=== PATIENT | male | born 1965 | race Caucasian/White ===

== ENCOUNTER 2016-04-16 08:45 | Emergency (ER) | payer OTHER ==
[~2016-04-16] VITALS: Ht 190.5 cm; Wt 83.9 kg
[~2016-04-16 08:45] MED LIST: LORA0.5T34 PO
[2016-04-16] MEDS ORDERED: NS IV 1000 ML 1,000 ML IV ONE (08:51)
[2016-04-16] MEDS ORDERED: HYDROmorphone (DILAUDID) 2 MG/ML VIAL IVP STA ×2 (08:51→09:29)
[2016-04-16] MEDS ORDERED: ceFAZolin 2 GM IV (SDC ONLY) 50 ML IV ONE (09:00)
[2016-04-16] MEDS ORDERED: TETANUS,DIPTH,PERTUSS P/F (BOOSTRIX) 0.5 ML VIAL IM ONE (09:00)
[2016-04-16 09:08] LABS: MEAN PLATELET VOLUME 10.4 FL (7.4-10.4); RED BLOOD COUNT 4.83 10^6/uL (4.35-5.85); WHITE BLOOD COUNT 7.9 10^3/uL (4.3-11.0)
--- NOTE | 2016-04-16 09:23 | Diagnostic Imaging Report ---
INDICATION: Crush injury Portable upright view of the chest is obtained. Comparison is made to study of 08/10/2013. FINDINGS: Heart size and pulmonary vascularity are within normal limits, and the lungs are clear, bilaterally. IMPRESSION: Unremarkable chest. Dictated by: Dictated on workstation # [id number]
--- NOTE | 2016-04-16 09:25 | Diagnostic Imaging Report ---
INDICATION: Crush injury to left upper extremity. AP and lateral views of the left forearm are obtained. FINDINGS: No acute fracture or dislocation is identified. No abnormal lytic or sclerotic focus is seen, and there is no radiopaque foreign body. IMPRESSION: No acute abnormality. Dictated by: Dictated on workstation # [id number]
--- NOTE | 2016-04-16 09:26 | Diagnostic Imaging Report ---
Indication: Crush injury to the left hand during work this morning. Discussion: Three views of the left hand were obtained, no comparison. Comminuted acute fracture of the mid aspect of the left second proximal phalanx. Fracture appears compound as the proximal bone shaft does appear to protrude through the skin surface. The distal finger is displaced along the radial aspect and foreshortened approximately 1.5 cm. No radiopaque foreign body identified. Soft tissue swelling is noted. The joint spaces are well-maintained. Impression: 1. Comminuted compound displaced foreshortened fracture of the proximal left second phalanx. Dictated by: Dictated on workstation # [id number]
[2016-04-16 09:29] LABS: ALANINE AMINOTRANSFERASE 173 U/L (0-55); ALBUMIN 4.1 G/DL (3.2-4.5); ALCOHOL 186 MG/DL (<10); ANION GAP 12 MMOL/L (5-14); ASPARTATE AMINO TRANSFERASE 214 U/L (5-34); BILIRUBIN,DIRECT 0.2 MG/DL (0.0-0.3); BILIRUBIN,INDIRECT 0.3 MG/DL; BILIRUBIN,TOTAL 0.5 MG/DL (0.1-1.0); BLOOD UREA NITROGEN 8 MG/DL (7-18); BUN/CREATININE RATIO 11; CALCIUM 9.6 MG/DL (8.5-10.1); CARBON DIOXIDE 19 MMOL/L (21-32); CHLORIDE 105 MMOL/L (98-107); CREATININE SERUM 0.76 MG/DL (0.60-1.30); GFR ESTIMATED > 60; GLUCOSE 129 MG/DL (70-105); POTASSIUM 4.1 MMOL/L (3.6-5.0); SODIUM 136 MMOL/L (135-145); TOTAL PROTEIN 8.1 G/DL (6.4-8.2)
--- NOTE | 2016-04-16 09:47 | ED Trauma-Multisystem ---
General Stated Complaint: L HAND INJ Source of Information: Patient, Family Exam Limitations: No Limitations History of Present Illness Time Seen by Provider: 08:48 Initial Comments This 51-year-old gentleman presents to the emergency room with a severe left hand injury. His hand was caught up in crushed in a printing press. He has a displaced open fracture of the left second finger and extensive soft tissue injury. Family reports patient is a heavy daily drinker. Patient admits to drinking last night and only had 4 hours of sleep. He denies any other injury. He is alert and oriented. Wounds are not bleeding at this time. Allergies and Home Medications Allergies Coded Allergies: No Known Drug Allergies (Unverified , 08/10/13) Home Medications Cephalexin 500 Mg Capsule #40 500 MG PO QID Prescribed by: MITCH SCHMITZ on 04/16/16 1234 Oxycodone HCl/Acetaminophen 1 Each Tablet #60 1-2 EACH PO Q4H PRN PRN PAIN Prescribed by: MITCH SCHMITZ on 04/16/16 1234 Sulfamethoxazole/Trimethoprim 1 Each Tablet #20 1 EACH PO BID Prescribed by: MITCH SCHMITZ on 04/16/16 1234 Constitutional: no symptoms reported Eyes: No Symptoms Reported Ears: No Symptoms Reported Nose: No Symptoms Reported Mouth: No Symptoms Reported Throat: No Symptoms to Report Respiratory: no symptoms reported Cardiovascular: No Symptoms Reported Gastrointestinal: no symptoms reported Genitourinary: no symptoms reported Musculoskeletal: see HPI Skin: see HPI Psychiatric/Neurological: No Symptoms Reported Past Dgzszjt-Hvvnth-Jwppgh Hx Patient Social History Alcohol Use: Regular Use Type Used: Smokeless Tobacco Surgeries HX Surgeries: Yes (wisdom teeth, hernia repair) Respiratory Hx Respiratory Disorders: Yes Respiratory Disorders: Asthma, Emphysema Cardiovascular Hx Cardiac Disorders: No Neurological Hx Neurological Disorders: No Genitourinary Hx Genitourinary Disorders: No Gastrointestinal Hx Gastrointestinal Disorders: No Musculoskeletal Hx Musculoskeletal Disorders: No Endocrine Hx Endocrine Disorders: No HEENT HX ENT Disorders: No Cancer Hx Cancer: No Psychosocial Hx Psychiatric Problems: Yes (alcohol dependence with heavily daily use) Integumentary HX Skin/Integumentary Disorder: No Blood Transfusions Hx Blood Disorders: No Adverse Reaction to a Blood Tr: No Physical Exam Vital Signs Vital Sign - Last 12Hours 04/16/16 13:15 Pulse 54 Resp 16 Pulse Ox 92 General Appearance: WD/WN Mild Distress Head: No Evidence of Injury Ears, Nose, Throat: No Evidence of ENT Injury Cardiovascular: Regular Rate, Rhythm No Edema No Murmur Respiratory: Lungs Clear Normal Breath Sounds No Accessory Muscle Use No Respiratory Distress Gastrointestinal: Non Tender Soft Extremity: Other (near amputation of the left index finger with comminuted, compound, open fracture of the second finger. No active bleeding at this time. Distal second finger has intact sensation with pink skin. Extensive soft tissue injury of the hand as well.) Neurologic/Psychiatric: Alert Oriented x3 No Motor/Sensory Deficits Normal Mood/Affect food sales clerk II-XII Norm as Tested Skin: Normal Color Warm/Dry Other (see above) Progress/Results/Core Measures Results/Orders Lab Results Laboratory Tests Test 04/16/16 09:01 Range/Units Alanine Aminotransferase (ALT/SGPT) 173 H 0-55 U/L Albumin 4.1 3.2-4.5 G/DL Alkaline Phosphatase 73 40-136 U/L Anion Gap 12 5-14 MMOL/L Aspartate Amino Transf (AST/SGOT) 214 H 5-34 U/L BUN/Creatinine Ratio 11 Blood Urea Nitrogen 8 7-18 MG/DL Calcium Level 9.6 8.5-10.1 MG/DL Carbon Dioxide Level 19 L 21-32 MMOL/L Chloride Level 105 98-107 MMOL/L Creatinine 0.76 0.60-1.30 MG/DL Direct Bilirubin 0.2 0.0-0.3 MG/DL Estimat Glomerular Filtration Rate > 60 Glucose Level 129 H 70-105 MG/DL Hematocrit 48 40-54 % Hemoglobin 16.7 13.3-17.7 G/DL Indirect Bilirubin 0.3 MG/DL Mean Corpuscular Hemoglobin 35 H 25-34 PG Mean Corpuscular Hemoglobin Concent 35 32-36 G/DL Mean Corpuscular Volume 100 H 80-99 FL Mean Platelet Volume 10.4 7.4-10.4 FL Platelet Count 227 130-400 10^3/uL Potassium Level 4.1 3.6-5.0 MMOL/L Red Blood Count 4.83 4.35-5.85 10^6/uL Red Cell Distribution Width 13.0 10.0-14.5 % Serum Alcohol 186 H <10 MG/DL Sodium Level 136 135-145 MMOL/L Total Bilirubin 0.5 0.1-1.0 MG/DL Total Protein 8.1 6.4-8.2 G/DL White Blood Count 7.9 4.3-11.0 10^3/uL My Orders Orders-MITCH CHESTER MD Cbc No Diff (04/16/16 08:51) Basic Metabolic Panel (04/16/16 08:51) Liver Panel (04/16/16 08:51) Alcohol (04/16/16 08:51) Chest 1 View, Ap/Pa Only (04/16/16 08:51) End Tidal Co2 (04/16/16 08:51) Monitor-Rhythm Ecg Trace Only (04/16/16 08:51) Saline Lock/Iv-Start (04/16/16 08:51) Hydromorphone Injection (Dilaudid Inject (04/16/16 08:51) Dipht,Pertuss(Acell),Tet Adult (Boostrix (04/16/16 09:00) Cefazolin 2 Gm Iv Solution (Ancef 2 Gm P (04/16/16 09:00) Saline Lock/Iv-Start (04/16/16 08:51) Ns Iv 1000 Ml (Sodium Chloride 0.9%) (04/16/16 08:51) Forearm, Left, 2 Views (04/16/16 08:57) Hand, Left, 3 Views (04/16/16 08:57) Hydromorphone Injection (Dilaudid Inject (04/16/16 09:29) Lidocaine 1% Injection (Xylocaine 1% Inj (04/16/16 10:00) Fentanyl Injection (Sublimaze Injection (04/16/16 10:00) Midazolam Injection (Versed Injection) (04/16/16 10:00) Ondansetron Injection (Zofran Injectio (04/16/16 09:48) Ondansetron Injection (Zofran Injectio (04/16/16 10:00) Hand, Left, 2 Views (04/16/16 12:14) Sulfamethoxazole/Trimet Ds Tab (Bactrim (04/16/16 12:30) Oxycodone/Apap 5/325mg Tablet (Percocet (04/16/16 12:30) Medications Given in ED Vital Signs/I&O Vital Sign - Last 12Hours 04/16/16 13:15 Pulse 54 Resp 16 Pulse Ox 92 Progress Note #1: Time: 10:50 Progress Note Patient has been given a total of 30 mg of Dilaudid. Boostrix administered. 2 g of Ancef have been infused for infection prophylaxis with this open fracture. Wounds were draped with saline soaked sterile gauze. Case was reviewed with Dr. De Guzman. Plan is to reduce the fracture and loosely closed the wounds today. Patient will then follow up with Dr. Brown in the clinic. The finger appears neurovascularly intact with sensation and pink skin. The TIGIST Gregg from the orthopedic practice is present now to perform the reduction and splinting. Progress Note #2: Progress Note Fracture was reduced, wounds repaired, and splint applied by TIGIST Gregg with assistance of Chula Bernstein APRN. Pain was managed with Dilauded. Oral percocet and bactrim were given before discharge. Diagnostic Imaging Diagonstic Imaging: Xray Plain Films/CT/US/NM/MRI: hand Comments Hand x-ray viewed by me and report reviewed. See report below: NAME: JULIO CANALES [facility] REC#: [id number] PT STATUS: [facility]P ER : 1965 PHYSICIAN: MITCH CHESTER MD ADMIT DATE: 04/16/16/ER Signed Date of Exam: 04/16/16 HAND, LEFT, 3 VIEWS Indication: Crush injury to the left hand during work this morning. Discussion: Three views of the left hand were obtained, no comparison. Comminuted acute fracture of the mid aspect of the left second proximal phalanx. Fracture appears compound as the proximal bone shaft does appear to protrude through the skin surface. The distal finger is displaced along the radial aspect and foreshortened approximately 1.5 cm. No radiopaque foreign body identified. Soft tissue swelling is noted. The joint spaces are well-maintained. Impression: 1. Comminuted compound displaced foreshortened fracture of the proximal left second phalanx. Dictated by: Dictated on workstation # [id number] Dict: 04/16/16 0921 Trans: 04/16/16 1649 KASIE [id number] Interpreted by: NOE DENG MD Electronically signed by:NOE DENG MD 04/16/16 1652 Diagonstic Imaging: Xray Plain Films/CT/US/NM/MRI: chest Comments NAME: JULIO CANALES [facility] REC#: [id number] PT STATUS: [facility] ER : 1965 PHYSICIAN: MITCH CHESTER MD ADMIT DATE: 04/16/16/ER Signed Date of Exam: 04/16/16 CHEST 1 VIEW, AP/PA ONLY INDICATION: Crush injury Portable upright view of the chest is obtained. Comparison is made to study of 08/10/2013. FINDINGS: Heart size and pulmonary vascularity are within normal limits, and the lungs are clear, bilaterally. IMPRESSION: Unremarkable chest. Dictated by: Dictated on workstation # [id number] Dict: 04/16/16917 Trans: 04/16/16929 KASIE [id number] Interpreted by: ANJU GARCIAS MD Electronically signed by:ANJU GARCIAS MD 04/16/16 0933 Diagonstic Imaging: Xray Plain Films/CT/US/NM/MRI: forearm Comments Forearm x-ray viewed by me and report reviewed. See report below: NAME: JULIO CANALES [facility] REC#: [id number] PT STATUS: [facility] : 1965 PHYSICIAN: MITCH CHESTER MD ADMIT DATE: 04/16/16/ER Signed Date of Exam: 04/16/16 FOREARM, LEFT, 2 VIEWS INDICATION: Crush injury to left upper extremity. AP and lateral views of the left forearm are obtained. FINDINGS: No acute fracture or dislocation is identified. No abnormal lytic or sclerotic focus is seen, and there is no radiopaque foreign body. IMPRESSION: No acute abnormality. Dictated by: Dictated on workstation # [id number] Dict: 04/16/16918 Trans: 04/16/16929 SA [id number] Interpreted by: ANJU GARCIAS MD Electronically signed by:ANJU GARCIAS MD 04/16/16 0933 Departure Impression Impression: Primary Impression: Open fracture of finger of left hand Qualified Code: S62.609B - Fracture of unspecified phalanx of unspecified finger, initial encounter for open fracture Additional Impressions: Laceration of left hand Qualified Code: S61.412A - Laceration without foreign body of left hand, initial encounter Alcohol dependence Qualified Code: F10.29 - Alcohol dependence with unspecified alcohol-induced disorder Disposition: HOME, SELF-CARE Condition: Improved Departure-Patient Inst. Decision time for Depature: 12:24 Referrals: DARSHAN BROWN,LOCAL PHYSICIAN (PCP) Primary Care Physician Patient Instructions: Finger Fracture, Laceration Repair With Stitches (DC) Add. Discharge Instructions: Keep your splint in place until otherwise directed by Dr. Brown. Keep your splint and wounds clean and dry. Follow-up with Dr. Brown in his office tomorrow at 9:00. Use your antibiotics and pain medication as prescribed. Monitor for signs of infection including increasing redness, puslike drainage, fever, etc. and return to care promptly few notice these symptoms. Do not eat or drink after midnight in preparation for possible surgery tomorrow. Scripts Oxycodone HCl/Acetaminophen (Percocet 5-325 mg Tablet)1 Each Tablet1-2 Each PO Q4H PRN PAIN #60 TAB Prov:MITCH CHESTER MD 04/16/16 Sulfamethoxazole/Trimethoprim (Bactrim 400-80 mg Tablet)1 Each Tablet1 Each PO BID #20 TAB Prov:MITCH CHESTER MD 04/16/16 Cephalexin (Keflex)500 Mg [id number] Mg PO QID #40 CAP Prov:MITCH CHESTER MD 04/16/16 Copy Copies To 1: DARSHAN BROWN JOSHUA T MD Apr 16, 2016 09:47
[2016-04-16] MEDS ORDERED: ONDANSETRON 4 MG/2 ML (SDV) Z0FRAN ONE (09:48)
[2016-04-16] MEDS ORDERED: fentaNYL INJECTION 100 MCG/2 ML AMP IVP ONE (10:00)
[2016-04-16] MEDS ORDERED: MIDAZOLAM 5 MG/5 ML (VERSED) VIAL IVP ONE (10:00)
[2016-04-16] MEDS ORDERED: ONDANSETRON 4 MG/2 ML (SDV) Z0FRAN IVP ONE (10:00)
[2016-04-16] MEDS ORDERED: LIDOCAINE 1% INJ 20 ML (XYLOCAINE) VIAL INJ ONE (10:00)
[2016-04-16] MEDS ORDERED: TRIM/SULFAMETH 160/800 (SEPTRA DS) TAB PO ONE (12:30)
[2016-04-16] MEDS ORDERED: oxyCODONE/APAP 5/325MG (PERCOCET 5) TABLET PO ONE (12:30)
[2016-04-16] MEDS ORDERED: SULF1TAB34 PO (12:34)
[2016-04-16] MEDS ORDERED: OXYC-197 PO (12:34)
[2016-04-16] MEDS ORDERED: CEPH-507 PO (12:34)
--- NOTE | 2016-04-16 12:38 | Diagnostic Imaging Report ---
INDICATION: Left hand injury AP and lateral views of the left hand are obtained at 1226 hrs, p.m. and compared with 9:05 hours a.m. the same day. Fracture of second proximal phalanx is again noted. There is improved alignment compared to the prior study but there is still about 4 mm of offset. Remaining bony structures are intact. IMPRESSION: There is improved alignment of the second proximal phalangeal fracture with still about 4 mm of offset. Remaining bony structures are intact. Dictated by: Dictated on workstation # [id number]
[2016-04-16 13:15] VITALS: BP 111/83
--- NOTE | 2016-04-16 13:16 | Procedure Note ---
Procedure Note Preoperative Date of Service: Apr 16, 2016 Time of Procedure: 12:00 Indication open transverse fracture 2nd proximal phalynx on the left hand with displacement angulation Risk/Time Out Risk and benefits explained to patient or legal guardian Prep/Sedation Prepartation: Povidone-iodine Sedation: digital block Procedure-General Mr Rizvi is a 51 y/o male in the ED for open transverse, displaced, angulated fracture of the 2nd finger of the left hand. There is significant soft tissue damage and contamination of the wound with ink. NVI intact. Wound was irrigated using copious amounts normal saline and 80cc syringe. Hand cleaned with betadine. There is a semi circumferential laceration measuring greater than 3cm around the palmar side of the left index finger extending up both sides of the finger lateral to the posterior hand. There was also a .25 cm laceration to the anterior 2nd finger and a 1cm laceration to the anterior MIP. Digital block fo the left index finger performed using lidocaine without epi. Closure of left hand lacerations performed using 5-0 monofilament nylon simple interrupted sutures. Slight traction and reduction required due to angulation and bayonette of the fracture with a goal to cover the expose bone. Skin was loosely closed to cover proximal phalynx of the 2nd index finger. NVI pre and post procedure. Post closure and reduction x-rays obtained showed proximal phalanx was still mal aligned by 50% and dorsal angulation. Patient was able to flex and extend his DIP joint while MIP immobilized. Hand bandaged with 4x4, cast padding, and kerlex and volar short arm splint applied with radhika wrap. Estimated Blood Loss Bleeding: Minimal Estimated blood loss in mL: 10 patient status is stable patient to follow up with Dr Arteaga at [facility] tomorrow at 0900 for pre operative evaluation ORIF left index finger patient being discharged with percocet and bactrim, has had 2 grams ancef IV in ED cousneled on compartment syndrome and cousneled on signs and symptoms of infection and the necessity of urgent follow up and close observation sling provided, patient to keep LUE in sling and dry until appt with Dr Chandler Turner and Dr De Guzman given update on patient condition MITCH ISLAS Apr 16, 2016 13:16
== END 2016-04-16 13:13 | disposition home or self-care (01) ==
LOC: EDUNIT# 08:45 → ER 08:48
DX: S62.611B Displaced fracture of proximal phalanx of left index finger, initial encounter for open fracture (principal); S61.412A Laceration without foreign body of left hand, initial encounter; Z23 Encounter for immunization; F10.20 Alcohol dependence, uncomplicated; Y90.6 Blood alcohol level of 120-199 mg/100 ml; W23.0XXA Caught, crushed, jammed, or pinched between moving objects, initial encounter; Y92.59 Other trade areas as the place of occurrence of the external cause; Y99.0 Civilian activity done for income or pay
CPT/HCPCS: 12002; 26755; 29125; 36415; 71010; 73090; 73120; 73130; 80048; 80076; 80320; 85027; 90471; 90715; 93041; 96361; 96365; 96375; 96376; 99291

== ENCOUNTER 2016-05-30 23:15 | Inpatient (IN) | payer BC, OTHER ==
[~2016-05-30] VITALS: Ht 188 cm; Wt 83.9 kg
[~2016-05-30 23:15] MED LIST changes: +CEPH-507 PO; +OXYC-197 PO; +SULF1TAB34 PO
--- OUTSIDE RECORDS SUMMARY | 2016-05-30 23:18 | XMS REPORT | Continuity of Care Document ---
Author Author [facility] Organization [facility] Address Unknown Phone Unavailable Care Team Providers Care Piping Designer Name Role Phone NO, LOCAL PHYSICIAN PCP Unavailable Insurance Providers Payer Name Policy Number Subscriber Name Relationship Wc Nestor Forms Stephen Rizvi 16 Self / Same As Patient Advance Directives Directive Response Recorded Date/Time Advance Directives No 08/10/13 8:04pm Chief Complaint and Reason for Visit Chief Complaint Trauma POV Arrival Activation Reason for Visit Alcohol dependence [id number] Laceration of left hand Problems Active Problems Medical Problem Onset Date Status Alcohol dependence Unknown Acute Laceration of left hand Unknown Acute Open fracture of finger of left hand Unknown Acute Medications Current Home Medications Medication Dose Units Route Directions Days/Qty Instructions Start Date Cephalexin 500 Mg 500 Mg Oral Four Times Daily 40 04/16/16 Sulfamethoxazole/Trimethoprim 1 Each 1 Each Oral Twice A Day 20 Oxycodone Hcl/Acetaminophen 1 Each 1-2 Each Oral Every 4HRS as needed for Pain 60 04/16/16 Past Home Medications Medication Directions Ordered Status Lorazepam 0.5 Mg Tablet, 1 Mg Oral Three Times A Day 08/10/13 Discontinued Social History Social History Problem Response Recorded Date/Time Alcohol Use Regular Use 08/10/2013 8:04pm Recreational Drug Use Y marijuana 08/10/2013 8:04pm Recent Foreign Travel No 04/16/2016 8:45am Recent Infectious Disease Exposure No 04/16/2016 8:45am Hospitalization with Isolation Denies 04/16/2016 8:45am Type Used Smokeless Tobacco 04/16/2016 10:55am Hospitalization with Isolation Denies 04/16/2016 8:45am Hospital Discharge Instructions No hospital discharge instructions. Plan of Care Discharge Date 04/16/16 1:13pm Disposition 01 HOME, SELF-CARE Condition at Discharge Improved Instructions/Education Provided Finger Fracture Laceration Repair With Stitches (DC) Prescriptions See Medication Section Referrals DARSHAN BROWN,LOCAL PHYSICIAN - Primary Care Physician Additional Instructions/Education Keep your splint in place until otherwise directed by Dr. Brown. Keep your splint and wounds clean and dry. Follow-up with Dr. Brown in his office tomorrow at 9:00. Use your antibiotics and pain medication as prescribed. Monitor for signs of infection including increasing redness, puslike drainage, fever, etc. and return to care promptly few notice these symptoms. Do not eat or drink after midnight in preparation for possible surgery tomorrow. Functional Status No functional status results. Allergies, Adverse Reactions, Alerts No known allergies. Immunizations Name Given Type DTaP-Tetanus, Dipth, Pertuss P/F (Boostrix) 04/16/16 Administered Vital Signs Acute Vital Signs Vital Response Date/Time Pain Numeric Pain Scale 8 04/16/2016 1:03pm Height (Feet) 6 feet 04/16/2016 8:45am Height (Inches) 3 inches 04/16/2016 8:45am Height (Calculated Centimeters) 190.943668 cm 04/16/2016 8:45am Weight (Pounds) 185 pounds 04/16/2016 8:45am Weight (Calculated Kilograms) 83.188477 kilograms 04/16/2016 8:45am Calculated BMI 23.12 04/16/2016 8:45am Results Laboratory Results Test Name Result Units Flags Reference Collection Date/Time Result Date/ Time Comments White Blood Count 7.9 10^3/uL 4.3-11.0 04/16/2016 9:01am 04/16/2016 9: 09am Red Blood Count 4.83 10^6/uL 4.35-5.85 04/16/2016 9:01am 04/16/2016 9: 09am Hemoglobin 16.7 G/DL 13.3-17.7 04/16/2016 9:01am 04/16/2016 9:09am Hematocrit 48 % 40-54 04/16/2016 9:01am 04/16/2016 9:09am Mean Corpuscular Volume 100 FL H 80-99 04/16/2016 9:04/16/2016 9: 09am Mean Corpuscular Hemoglobin 35 PG H 25-34 04/16/2016 9:04/16/2016 9: 09am Mean Corpuscular Hemoglobin Concent 35 G/DL 32-36 04/16/2016 9: 9:09am Red Cell Distribution Width 13.0 % 10.0-14.5 04/16/2016 9:2016 9:09am Platelet Count 227 10^3/uL 130-400 04/16/2016 9:04/16/2016 9:09am Mean Platelet Volume 10.4 FL 7.4-10.4 04/16/2016 9:04/16/2016 9: 09am Sodium Level 136 MMOL/L 135-145 04/16/2016 9:04/16/2016 9:30am Potassium Level 4.1 MMOL/L 3.6-5.0 04/16/2016 9:04/16/2016 9:30am Chloride Level 105 MMOL/L 98-107 04/16/2016 9:04/16/2016 9:30am Carbon Dioxide Level 19 MMOL/L L 21-32 04/16/2016 9:04/16/2016 9: 30am Anion Gap 12 MMOL/L 5-14 04/16/2016 9:04/16/2016 9:30am Blood Urea Nitrogen 8 MG/DL 7-18 04/16/2016 9:04/16/2016 9:30am Creatinine 0.76 MG/DL 0.60-1.30 04/16/2016 9:04/16/2016 9:30am BUN/Creatinine Ratio 11 04/16/2016 9:04/16/2016 9:30am Estimat Glomerular Filtration Rate > 60 04/16/2016 9:2016 9:30am GFR INTERPRETIVE DATA UNITS FOR ESTIMATED GFR (eGFR): mL/min/1.73 M2 REFERENCE RANGE FOR ESTIMATED GFR (eGFR) eGFR NORMAL eGFR >60 MODERATELY DECREASED eGFR 30-59 SEVERLY DECREASED eGFR 15-29 KIDNEY FAILURE <15 (OR DIALYSIS) Glucose Level 129 MG/DL H 70-105 04/16/2016 9:0104/16/2016 9:30am Calcium Level 9.6 MG/DL 8.5-10.1 04/16/2016 9:0104/16/2016 9:30am Total Bilirubin 0.5 MG/DL 0.1-1.0 04/16/2016 9:0104/16/2016 9:30am Direct Bilirubin 0.2 MG/DL 0.0-0.3 04/16/2016 9:04/16/2016 9:30am Indirect Bilirubin 0.3 MG/DL 04/16/2016 9:0104/16/2016 9:30am Alkaline Phosphatase 73 U/L 40-136 04/16/2016 9:0104/16/2016 9:30am Aspartate Amino Transf (AST/SGOT) 214 U/L H 5-34 04/16/2016 9:01am 2016 9:30am Alanine Aminotransferase (ALT/SGPT) 173 U/L H 0-55 04/16/2016 9:01 9:30am Total Protein 8.1 G/DL 6.4-8.2 04/16/2016 9:01am 04/16/2016 9:30am Albumin 4.1 G/DL 3.2-4.5 04/16/2016 9:0104/16/2016 9:30am Procedures No known history of procedures. Encounters Encounter Location Arrival/Admit Date Discharge/Depart Date Attending Provider Departed Emergency Room [facility] 04/16/16 8:48am 04/16 1:13pm MITCH CHESTER MD Recent Diagnosis
--- OUTSIDE RECORDS SUMMARY | 2016-05-30 23:22 | XMS REPORT | Continuity of Care Document ---
Author Author [facility] Organization [facility] Address Unknown Phone Unavailable Care Team Providers Care Magnetic Doctor Name Role Phone NO, LOCAL PHYSICIAN PCP Unavailable Insurance Providers Payer Name Policy Number Subscriber Name Relationship Wc Nestor Forms Stephen Rizvi 16 Self / Same As Patient Advance Directives Directive Response Recorded Date/Time Advance Directives No 08/10/13 8:04pm Chief Complaint and Reason for Visit Chief Complaint Trauma POV Arrival Activation Reason for Visit Alcohol dependence [id number] Laceration of left hand Problems Active Problems [...] 3 inches 04/16/2016 8:45am Height (Calculated Centimeters) 190.747064 cm 04/16/2016 8:45am Weight (Pounds) 185 pounds 04/16/2016 8:45am Weight (Calculated Kilograms) 83.772612 kilograms 04/16/2016 8:45am Calculated BMI 23.12 04/16/2016 [...] Date Attending Provider Departed Emergency Room [facility] 04/16/16 8:48am 04/16 1:13pm MITCH CHESTER MD Recent Diagnosis
[2016-05-30 23:36] LABS: BASOPHILS % (AUTO) 0 % (0-10); EOSINOPHILS # (AUTO) 0.1 10^3/uL (0.0-0.3); EOSINOPHILS % (AUTO) 1 % (0-10); LYMPHOCYTES # (AUTO) 3.1 X 10^3 (1.0-4.0); LYMPHOCYTES % (AUTO) 30 % (12-44); MEAN CORPUSCULAR HEMOGLOBIN 34 PG (25-34); MEAN CORPUSCULAR HGB CONC 36 G/DL (32-36); MEAN CORPUSCULAR VOLUME 96 FL (80-99); MEAN PLATELET VOLUME 10.3 FL (7.4-10.4); MONOCYTES # (AUTO) 1.5 X 10^3 (0.0-1.0); MONOCYTES % (AUTO) 14 % (0-12); NEUTROPHILS # (AUTO) 5.7 X 10^3 (1.8-7.8); NEUTROPHILS % (AUTO) 55 % (42-75); PLATELET COUNT 151 10^3/uL (130-400); RED BLOOD COUNT 5.01 10^6/uL (4.35-5.85); RED CELL DISTRIBUTION WIDTH 12.2 % (10.0-14.5); WHITE BLOOD COUNT 10.4 10^3/uL (4.3-11.0)
--- NOTE | 2016-05-30 23:36 | ED Abdominal Pain ---
General Chief Complaint: Abdominal/GI Problems Stated Complaint: ABD PAIN,NAUSEA Nursing Triage Note: PT TO ED 8 W/ C/O ABD PAIN X3 DAYS, DENIES SEEING PCP FOR C/O. DENIES NAUSEA EXCEPT WHEN HE BRUSHES HIS TEETH. DOES REPORT HE DRINKS A PINT A DAY OF ETOH. NO OTHER C/O VOICED Sepsis Screen: No Definite Risk Source of Information: Patient Exam Limitations: No Limitations History of Present Illness Time Seen By Provider: 23:34 Initial Comments Patient complains epigastric pain radiating through to his back for the past 3 days. It is worsening in severity. He denies nausea vomiting. Stools been normal. Patient drinks heavily (at least a pint of liquor a day). His only abdominal surgery was a left inguinal hernia repair. Allergies and Home Medications Allergies Coded Allergies: No Known Drug Allergies (Unverified , 08/10/13) Home Medications Cephalexin 500 Mg Capsule #40 500 MG PO QID Prescribed by: MITCH SCHMITZ on 04/16/16 1234 Oxycodone HCl/Acetaminophen 1 Each Tablet #60 1-2 EACH PO Q4H PRN PRN PAIN Prescribed by: MITCH SCHMITZ on 04/16/16 1234 Sulfamethoxazole/Trimethoprim 1 Each Tablet #20 1 EACH PO BID Prescribed by: MITCH SCHMITZ on 04/16/16 1234 Review of Systems Constitutional: no symptoms reported Respiratory: No Symptoms Reported Cardiovascular: No Symptoms Reported Gastrointestinal: Abdominal PainDenies Diarrhea, Denies Nausea, Denies Rectal Bleeding, Denies Vomiting Genitourinary: No Symptoms Reported Musculoskeletal: no symptoms reported Psychiatric/Neurological: See HPI All Other Systems Reviewed Negative Unless Noted: Yes Past Vlhgoax-Sjsfop-Eclave Hx Patient Social History Alcohol Use: Regular Use Recreational Drug Use: Yes Drug of Choice: MARIJUANA Smoking Status: Current Everyday Smoker Type Used: Cigarettes, Smokeless Tobacco 2nd Hand Smoke Exposure: Yes Recent Foreign Travel: No Contact w/Someone Who Travel: No Recent Infectious Disease Expo: No Immunizations Up To Date Tetanus Booster (TDap): Less than 5yrs Surgeries HX Surgeries: Yes (wisdom teeth, hernia repair) Respiratory Hx Respiratory Disorders: Yes Respiratory Disorders: Asthma, Emphysema Cardiovascular Hx Cardiac Disorders: No Neurological Hx Neurological Disorders: No Genitourinary Hx Genitourinary Disorders: No Gastrointestinal Hx Gastrointestinal Disorders: No Musculoskeletal Hx Musculoskeletal Disorders: No Endocrine Hx Endocrine Disorders: No HEENT HX ENT Disorders: No Cancer Hx Cancer: No Psychosocial Hx Psychiatric Problems: Yes (alcohol dependence with heavily daily use) Integumentary HX Skin/Integumentary Disorder: No Blood Transfusions Hx Blood Disorders: No Adverse Reaction to a Blood Tr: No Reviewed Nursing Assessment Reviewed/Agree w Nursing PMH: Yes Physical Exam Vital Signs VS - Last 72 Hours, by Label 05/30/16 23:16 Temp 97.9 Pulse 114 Resp 20 B/P 133/94 O2 Delivery Room Air Capillary Refill : Less Than 3 Seconds General Appearance: WD/WN no apparent distress HEENT: pharynx normal Neck: supple Respiratory: lungs clear normal breath sounds Cardiovascular: regular rate, rhythm no edema Gastrointestinal: soft no pulsatile massNo distended, No guarding, No rebound , tenderness (tender in epigastrium) Extremities: normal inspection no pedal edema no calf tenderness Back: normal inspection Neurologic/Psychiatric: alert normal mood/affect Skin: normal color warm/dry Progress/Results/Core Measures Results/Orders Lab Results Laboratory Tests Test 05/30/16 23:21 05/31/16 00:30 Range/Units Alanine Aminotransferase (ALT/SGPT) 122 H 0-55 U/L Albumin 4.3 3.2-4.5 G/DL Alkaline Phosphatase 114 40-136 U/L Anion Gap 19 H 5-14 MMOL/L Aspartate Amino Transf (AST/SGOT) 184 H 5-34 U/L BUN/Creatinine Ratio 11 Basophils # (Auto) 0.0 0.0-0.1 10^3/uL Basophils (%) (Auto) 0 0-10 % Blood Urea Nitrogen 8 7-18 MG/DL Calcium Level 9.7 8.5-10.1 MG/DL Carbon Dioxide Level 17 L 21-32 MMOL/L Chloride Level 100 98-107 MMOL/L Creatinine 0.71 0.60-1.30 MG/DL Eosinophils # (Auto) 0.1 0.0-0.3 10^3/uL Eosinophils (%) (Auto) 1 0-10 % Estimat Glomerular Filtration Rate > 60 Glucose Level 137 H 70-105 MG/DL Hematocrit 48 40-54 % Hemoglobin 17.1 13.3-17.7 G/DL Lipase > 1200 H 8-78 U/L Lymphocytes # (Auto) 3.1 1.0-4.0 X 10^3 Lymphocytes (%) (Auto) 30 12-44 % Mean Corpuscular Hemoglobin 34 25-34 PG Mean Corpuscular Hemoglobin Concent 36 32-36 G/DL Mean Corpuscular Volume 96 80-99 FL Mean Platelet Volume 10.3 7.4-10.4 FL Monocytes # (Auto) 1.5 H 0.0-1.0 X 10^3 Monocytes (%) (Auto) 14 H 0-12 % Neutrophils # (Auto) 5.7 1.8-7.8 X 10^3 Neutrophils (%) (Auto) 55 42-75 % Platelet Count 151 130-400 10^3/uL Potassium Level 3.8 3.6-5.0 MMOL/L Red Blood Count 5.01 4.35-5.85 10^6/uL Red Cell Distribution Width 12.2 10.0-14.5 % Sodium Level 136 135-145 MMOL/L Total Bilirubin 0.8 0.1-1.0 MG/DL Total Protein 8.6 H 6.4-8.2 G/DL White Blood Count 10.4 4.3-11.0 10^3/uL Labs were reviewed My Orders Orders-JULI SALDIVAR MD Cbc With Automated Diff (05/30/16 23:18) Comprehensive Metabolic Panel (05/30/16 23:18) Lipase (05/30/16 23:18) Ua Culture If Indicated (05/30/16 23:18) Alcohol (05/31/16 00:28) Thiamine Injection (Vitamin B-1 Injectio (05/31/16 00:45) Pantoprazole Injection (Protonix Injecti (05/31/16 00:45) Lorazepam Injection (Ativan Injection) (05/31/16 00:45) Protime With Inr (05/31/16 00:35) Partial Thromboplastin Time (05/31/16 00:35) Ns Iv 1000 Ml (Sodium Chloride 0.9%) (05/31/16 00:40) Magnesium Sulfate Inj (Magnesium Sulfate (05/31/16 00:40) Folic Acid Syr (Ed) (Folic Acid Syr (Ed) (05/31/16 00:40) Thiamine Injection (Vitamin B-1 Injectio (05/31/16 00:41) D5 1/2 Ns W/Kcl 20 Meq/L (Dextrose 5%/0. (05/31/16 00:42) Vitamin Multi Injection (Mvi 12 Injectio (05/31/16 00:44) Vitamin Multi Injection (Mvi 12 Injectio (05/31/16 00:50) Medications Given in ED Current Medications Medications Dose Ordered Sig/Urszula Route Start Time Stop Time Status Last Admin Dose Admin Lorazepam 1 mg ONCE ONCE IVP 05/31/16 00:45 05/31/16 00:46 DC 05/31/16 00:40 1 MG Pantoprazole 40 mg ONCE ONCE IV 05/31/16 00:45 05/31/16 00:46 DC 05/31/16 00:40 40 MG Vital Signs/I&O Vital Sign - Last 12Hours 05/30/16 23:16 Temp 97.9 Pulse 114 Resp 20 B/P 133/94 O2 Delivery Room Air Blood Pressure Mean: 107 Progress Note : Time: 00:54 Progress Note Lab results discussed with patient. Although he is reluctant to be admitted he knows he will be unable to abstain from alcohol if he goes home. Departure Communication Time/Spoke to Admitting Phy: 00:40 Communication Patient was discussed with Dr. Romero and Dr. Herman. Impression Impression: Primary Impression: Acute pancreatitis Qualified Code: K85.20 - Alcohol induced acute pancreatitis without necrosis or infection Additional Impression: Alcoholism Disposition: ADMITTED INPATIENT Condition: Stable Decision to Admit Reason: Admit from ER (General) Decision to Admit/Date: May 31, 2016 Time/Decision to Admit Time: 00:53 Departure-Patient Inst. Referrals: NO,LOCAL PHYSICIAN (PCP/Family) Primary Care Physician JULI SALDIVAR MD May 30, 2016 23:36
[2016-05-31 00:04] LABS: ALANINE AMINOTRANSFERASE 122 U/L (0-55); ALBUMIN 4.3 G/DL (3.2-4.5); ANION GAP 19 MMOL/L (5-14); ASPARTATE AMINO TRANSFERASE 184 U/L (5-34); BILIRUBIN,TOTAL 0.8 MG/DL (0.1-1.0); BLOOD UREA NITROGEN 8 MG/DL (7-18); BUN/CREATININE RATIO 11; CALCIUM 9.7 MG/DL (8.5-10.1); CARBON DIOXIDE 17 MMOL/L (21-32); CHLORIDE 100 MMOL/L (98-107); CREATININE SERUM 0.71 MG/DL (0.60-1.30); GFR ESTIMATED > 60; GLUCOSE 137 MG/DL (70-105); LIPASE > 1200 U/L (8-78); POTASSIUM 3.8 MMOL/L (3.6-5.0); SODIUM 136 MMOL/L (135-145); TOTAL PROTEIN 8.6 G/DL (6.4-8.2)
[2016-05-31] MEDS ORDERED: FOLIC ACID 1 MG/0.2 ML SYR (ED) ONE (00:40)
[2016-05-31] MEDS ORDERED: NS IV 1000 ML 0 ML ONE (00:40)
[2016-05-31] MEDS ORDERED: MAGNESIUM SULFATE 1 GM/2 ML VIAL ONE (00:40)
[2016-05-31] MEDS ORDERED: THIAMINE 100 MG/ML 2 ML (VITAMIN B-1) VIAL ONE (00:41)
[2016-05-31] MEDS ORDERED: D5 1/2 NS W/KCL 20 MEQ/L 1,000 ML IV ONE (00:42)
[2016-05-31] MEDS ORDERED: VITAMIN MULTI- 12 INJECTION 10 ML VIAL IV ONE ×2 (00:44→00:50)
[2016-05-31] MEDS ORDERED: THIAMINE INJECTION 100 MG, FOLIC ACID INJECTION 1 MG, VITAMIN MULTI INJECTION 10 ML, MA... IV ONE ×5 (00:45)
[2016-05-31] MEDS ORDERED: PANTOPRAZOLE 40 MG/10 ML (PROTONIX) VIAL IV ONE (00:45)
[2016-05-31] MEDS ORDERED: LORazepam INJ 2 MG/ML (ATIVAN) VIAL IVP ONE (00:45)
[2016-05-31 00:54] LABS: INR 0.9 (0.8-1.4); PROTHROMBIN TIME PATIENT 12.2 SEC (12.2-14.7)
[2016-05-31 03:15] VITALS: BP 115/82
[2016-05-31 04:00] VITALS: BP 119/75
[2016-05-31] MEDS ORDERED: D5 1/2 NS W/KCL 20 MEQ/L 1,000 ML IV SCH (04:30)
[2016-05-31] MEDS ORDERED: ANTACID SUSP 30 ML UDC (MYLANTA) PO PRN (04:30)
[2016-05-31] MEDS ORDERED: LORazepam 1 MG (ATIVAN) TAB PO PRN (04:30)
[2016-05-31] MEDS ORDERED: SENNA W/DOCUSATE (SENOKOT S) TABLET PO PRN (04:30)
[2016-05-31] MEDS ORDERED: LORazepam INJ 2 MG/ML (ATIVAN) VIAL IM/IV PRN (04:30)
[2016-05-31] MEDS: ONDANSETRON 4 MG/2 ML (SDV) Z0FRAN IV PRN ×2 (04:33→15:21)
[2016-05-31] MEDS: fentaNYL INJECTION 100 MCG/2 ML AMP IV PRN ×3 (04:33→09:04)
[2016-05-31] MEDS: NS IV 1000 ML 1,000 ML IV SCH ×2 (05:16→06:33)
[2016-05-31 06:48] LABS: BILIRUBIN,URINE 2+ (NEGATIVE); KETONES,URINE 2+ (NEGATIVE); LEUKOCYTE ESTERASE ,URINE 1+ (NEGATIVE); NITRITE,URINE POSITIVE (NEGATIVE); PH,URINE 6 (5-9); PROTEIN,URINE 2+ (NEGATIVE); UROBILINOGEN,URINE 8 MG/DL (NORMAL)
[2016-05-31 07:00] LABS: YEAST,URINE FEW /HPF
[2016-05-31] MEDS ORDERED: FLU TRIvalent (5 YOA+) 2016-17 (AFLURIA) 0.5 ML IM ONE (07:00)
[2016-05-31 08:14] VITALS: BP 125/89
[2016-05-31] MEDS ORDERED: IOHEXOL 350 MG/ML 100 ML (OMNIPAQUE 350) VIAL IV ONE (09:00)
[2016-05-31] MEDS ORDERED: THIAMINE INJECTION 100 MG, FOLIC ACID INJECTION 1 MG, VITAMIN MULTI INJECTION 10 ML, MA... IV SCH ×5 (09:00)
[2016-05-31] MEDS ORDERED: CATHETER FLUSH 10 ML SYR IV PRN (09:00)
[2016-05-31] MEDS ORDERED: NS 100 ML (IVPB) BAG IV ONE (09:00)
[2016-05-31] MEDS ORDERED: HYDR-3820 PO (09:07)
[2016-05-31 09:49] LABS: BASOPHILS % (AUTO) 0 % (0-10); EOSINOPHILS # (AUTO) 0.1 10^3/uL (0.0-0.3); EOSINOPHILS % (AUTO) 1 % (0-10); LYMPHOCYTES # (AUTO) 1.6 X 10^3 (1.0-4.0); LYMPHOCYTES % (AUTO) 19 % (12-44); MEAN CORPUSCULAR HEMOGLOBIN 34 PG (25-34); MEAN CORPUSCULAR HGB CONC 36 G/DL (32-36); MEAN CORPUSCULAR VOLUME 97 FL (80-99); MEAN PLATELET VOLUME 10.1 FL (7.4-10.4); MONOCYTES # (AUTO) 1.9 X 10^3 (0.0-1.0); MONOCYTES % (AUTO) 22 % (0-12); NEUTROPHILS # (AUTO) 4.9 X 10^3 (1.8-7.8); NEUTROPHILS % (AUTO) 58 % (42-75); PLATELET COUNT 134 10^3/uL (130-400); RED BLOOD COUNT 4.49 10^6/uL (4.35-5.85); RED CELL DISTRIBUTION WIDTH 12.1 % (10.0-14.5); WHITE BLOOD COUNT 8.4 10^3/uL (4.3-11.0)
[2016-05-31] MEDS ORDERED: diphenhydrAMINE 50 MG/ML INJ (BENADRYL) ONE (10:13)
[2016-05-31 10:22] LABS: ALANINE AMINOTRANSFERASE 94 U/L (0-55); ALBUMIN 3.7 G/DL (3.2-4.5); ANION GAP 12 MMOL/L (5-14); ASPARTATE AMINO TRANSFERASE 131 U/L (5-34); BILIRUBIN,TOTAL 1.4 MG/DL (0.1-1.0); BLOOD UREA NITROGEN 7 MG/DL (7-18); BUN/CREATININE RATIO 11; CARBON DIOXIDE 20 MMOL/L (21-32); CHLORIDE 100 MMOL/L (98-107); CREATININE SERUM 0.63 MG/DL (0.60-1.30); GFR ESTIMATED > 60; GLUCOSE 108 MG/DL (70-105); SODIUM 132 MMOL/L (135-145); TOTAL PROTEIN 7.2 G/DL (6.4-8.2)
[2016-05-31 10:25] LABS: BAND NEUTROPHILS 0 %; BASOPHILS % (MANUAL) 0 %; EOSINOPHILS % (MANUAL) 0 %; LYMPHOCYTES % (MANUAL) 21 %; NEUTROPHILS % (MANUAL) 57 %
--- NOTE | 2016-05-31 10:42 | History & Physical-Hospitalist ---
HPI History of Present Illness: HPI/Chief Complaint CC: Abdominal Pain HPI: This is a 51yoWM pt that presented to ER with abdominal pain and was found to have pancreatitis, likely alcohol related because pt drinks a pint of whiskey per day. Lipase was >1,[address] Herman has been consulted. CT of abdomen ordered, completed, but results pending as the lab results from this morning. 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 Herman is on board. Pt on detox protocol. Patient Interview: Pt states that he has significant pain. Dr. Gastelum informs pt that labs and CT results are pending. Dr. Gastelum informs pt that Dr. Herman will consult with pt and further discuss management. Pt does not have a PCP. Pt has had abdominal pain previously, but has not been diagnosed with pancreatitis. Pt confirms that he drinks excessive ETOH each day. encourages pt to quit ETOH. Pt also smokes. Pt works for a [employer] in [place]. Pt has worked there for 1 year. Pts hand was caught in a [employer]. Physical exam stable. Pt has not vomited since admission to [facility]. Pt states that he has been through alcohol withdrawal before, and feels shaky currently. Pt receiving Ativan and Fentanyl. Scribed by Vadim Vega under the direct supervision of Dr. Gastelum. Source: patient Exam Limitations: no limitations Date Seen 05/31/16 Attending Physician Cassia Gastelum DO PCP No,Local Physician Referring Physician Date of Admission May 31, 2016 at 00:30 Home Medications & Allergies Home Medications Reviewed patient Home Medication Reconciliation Form Allergies Coded Allergies: No Known Drug Allergies (Unverified , 08/10/13) Past Atfvzyc-Atkxyu-Hsusvd Hx Patient Social History Marrital Status: single Employed/Student: employed ([employer] 1 year) Alcohol Use: Regular Use Recreational Drug Use: Yes Drug of Choice: MARIJUANA Smoking Status: Current Everyday Smoker Type Used: Cigarettes, Smokeless Tobacco 2nd Hand Smoke Exposure: Yes Physical Abuse Screen: No Sexual Abuse: No Recent Foreign Travel: No Contact w/other who traveled: No Recent Infectious Disease Expo: No Immunizations Up To Date Tetanus Booster (TDap): Less than 5yrs Seasonal Allergies Seasonal Allergies: No Surgeries HX Surgeries: Yes (wisdom teeth, hernia repair, left index finger 04/17 Dr Brown) Respiratory Hx Respiratory Disorders: Yes Respiratory Disorders: COPD Cardiovascular Hx Cardiovascular Disorders: No Neurological Hx Neurological Disorders: No Genitourinary Hx Genitourinary Disorders: No Gastrointestinal Hx Gastrointestinal Disorders: No Musculoskeletal Hx Musculoskeletal Disorders: No Endocrine Hx Endocrine Disorders: No HEENT HX ENT Disorders: No Cancer Hx Cancer: No Psychosocial Hx Psychiatric Problems: Yes (alcohol dependence with heavily daily use) Integumentary HX Skin/Integumentary Disorder: No Blood Transfusions Hx Blood Disorders: No Adverse Reaction to a Blood Tr: No Reviewed Nursing Assessment Reviewed/Agree w Nursing PMH: Yes Family Medical History Family Hx: BRAIN CANCER G8 SISTER CROHN'S DISEASE G8 BROTHER LUNG CANCER 19 FATHER SEIZURE DISORDER G8 BROTHER Review of Systems Constitutional: see HPI EENTM: no symptoms reported Respiratory: no symptoms reported Cardiovascular: no symptoms reported Gastrointestinal: abdominal pain (LUQ) Genitourinary: no symptoms reported Musculoskeletal: back pain Skin: no symptoms reported Psychiatric/Neurological: No Symptoms Reported All Other Systems Reviewed Negative Unless Noted: Yes Physical Exam Physical Exam Vital Signs Vital Sign - Last 12Hours 05/30/16 05/31/16 23:16 02:52 Temp 97.9 Pulse 114 Resp 20 B/P 133/94 Pulse Ox 98 O2 Delivery Room Air Capillary Refill : Less Than 3 Seconds General Appearance: No Apparent Distress WD/WN Chronically ill Thin Eyes: Bilateral Eye Normal Inspection, Bilateral Eye PERRL HEENT: PERRL/EOMI Normal ENT Inspection Pharynx Normal Neck: Full Range of Motion Normal Inspection Non Tender Supple Carotid Bruit Respiratory: Chest Non Tender Lungs Clear Normal Breath Sounds No Accessory Muscle Use No Respiratory Distress Cardiovascular: Regular Rate, Rhythm No Edema No Gallop No JVD No Murmur Normal Peripheral Pulses Gastrointestinal: Normal Bowel Sounds No Organomegaly No Pulsatile Mass Soft Tenderness Back: Normal Inspection No CVA Tenderness No Vertebral Tenderness Extremity: Normal Capillary Refill Normal Inspection Normal Range of Motion Non Tender No Calf Tenderness No Pedal Edema Neurologic/Psychiatric: Alert Oriented x3 No Motor/Sensory Deficits Normal Mood/Affect Skin: Normal Color Warm/Dry Lymphatic: No Adenopathy Results Results/Procedures Lab Laboratory Tests 05/30/16 23:21 05/31/16 09:40 Assessment/Plan Admission Diagnosis Assessment: Acute pancreatitis due to alcoholism Smoker Colitis on CT scan Assessment and Plan Plan: Change NS to Clinimix Telemetry due to detox Stop Fentanyl Begin Dilaudid CT and lab results pending Maintain detox protocol. Clinical Quality Measures DVT/VTE Risk/Contraindication: Risk Factor Score Per Nursin RFS Level Per Nursing on Admit: 2=Moderate CASSIA GASTELUM DO May 31, 2016 10:42
--- NOTE | 2016-05-31 10:52 | Diagnostic Imaging Report ---
PROCEDURE: CT abdomen and pelvis with contrast. TECHNIQUE: Multiple contiguous axial images were obtained through the abdomen and pelvis after administration of intravenous contrast. INDICATION: Nausea, pain worsening over the past 4-5 days. FINDINGS: The patient's pancreas most notably of its body and tail are somewhat thickened and slightly hypo-dense with infiltration of the peripancreatic fat. Small volume free fluid along the left greater than right colic gutters and thickening of the left lateral conal fascia. Pattern is suspicious for acute pancreatitis, correlate clinically. There is hepatic steatosis without pathological biliary ductal distention. No pseudocyst or other acute fluid collection is found. There were no features of pancreatic necrosis or abscess. Left upper quadrant small bowel loops showed some circumferential wall thickening as well as some mild luminal dilatation of the distal small bowel is normal in caliber. Dilated small bowel in left upper quadrant measured 3.5 cm maximal. This may be a focal enteritis. Stomach was nondistended. The kidneys unobstructed and normal. There is no adrenal mass. The spleen nonfocal and normal in size. There is enhancement of the intra-and extrahepatic portal venous branches, as well as the hepatic veins and cava. Abdominal pelvic arterial structures appeared patent and normal. Prostate, seminal vesicles and urinary bladder had an unremarkable appearance. Small volume nonloculated pelvic free fluid noted. IMPRESSION: Findings suspicious for acute pancreatitis. Correlate with relevant laboratory studies. Hepatic steatosis without biliary dilatation. No acute fluid collection or pseudocyst. Abdominal pelvic free fluid without loculated collection. Left upper quadrant small bowel wall thickening and luminal dilatation may reflect a regional enteritis. Nondistention of the stomach and duodenum. Remaining bowel appeared normal. Dictated by: Dictated on workstation # [id number]
[2016-05-31] MEDS: HYDROmorphone (DILAUDID) 2 MG/ML VIAL IVP PRN ×4 (11:11→23:47)
[2016-05-31] MEDS: AA 4.25% W/LYTES IN D5W IV SOL 1,000 ML IV SCH ×2 (11:16→19:39)
[2016-05-31 12:15] LABS: AMYLASE 822 U/L (25-125)
[2016-05-31 12:30] LABS: LIPASE 1766 U/L (8-78)
[2016-05-31 12:31] VITALS: BP 116/80
[2016-05-31] MEDS: LORazepam INJ 2 MG/ML (ATIVAN) VIAL IM/IV PRN (14:28)
[2016-05-31 16:48] VITALS: BP 124/68
[2016-05-31] MEDS ORDERED: LORazepam INJ 2 MG/ML (ATIVAN) VIAL IVP PRN (17:45)
[2016-05-31 18:59] VITALS: BP 143/89
[2016-05-31] MEDS: LORazepam INJ 2 MG/ML (ATIVAN) VIAL IVP PRN (22:00)
[2016-06-01] VITALS: BP 119/81
[2016-06-01 04:00] VITALS: BP 120/82
[2016-06-01] MEDS: AA 4.25% W/LYTES IN D5W IV SOL 1,000 ML IV SCH ×3 (05:20→20:54)
[2016-06-01] MEDS: HYDROmorphone (DILAUDID) 2 MG/ML VIAL IVP PRN ×2 (05:20→10:09)
[2016-06-01 06:42] LABS: BASOPHILS % (AUTO) 0 % (0-10); EOSINOPHILS # (AUTO) 0.1 10^3/uL (0.0-0.3); EOSINOPHILS % (AUTO) 2 % (0-10); LYMPHOCYTES # (AUTO) 1.5 X 10^3 (1.0-4.0); LYMPHOCYTES % (AUTO) 20 % (12-44); MEAN CORPUSCULAR HEMOGLOBIN 34 PG (25-34); MEAN CORPUSCULAR HGB CONC 35 G/DL (32-36); MEAN CORPUSCULAR VOLUME 98 FL (80-99); MEAN PLATELET VOLUME 10.9 FL (7.4-10.4); MONOCYTES # (AUTO) 2.1 X 10^3 (0.0-1.0); MONOCYTES % (AUTO) 27 % (0-12); NEUTROPHILS % (AUTO) 51 % (42-75); PLATELET COUNT 131 10^3/uL (130-400); RED BLOOD COUNT 4.33 10^6/uL (4.35-5.85); RED CELL DISTRIBUTION WIDTH 12.1 % (10.0-14.5); WHITE BLOOD COUNT 7.8 10^3/uL (4.3-11.0)
[2016-06-01 07:13] LABS: ALANINE AMINOTRANSFERASE 73 U/L (0-55); ALBUMIN 3.6 G/DL (3.2-4.5); ANION GAP 11 MMOL/L (5-14); ASPARTATE AMINO TRANSFERASE 90 U/L (5-34); BILIRUBIN,TOTAL 1.3 MG/DL (0.1-1.0); BLOOD UREA NITROGEN 12 MG/DL (7-18); BUN/CREATININE RATIO 18; CALCIUM 9.5 MG/DL (8.5-10.1); CARBON DIOXIDE 23 MMOL/L (21-32); CHLORIDE 97 MMOL/L (98-107); CREATININE SERUM 0.65 MG/DL (0.60-1.30); GFR ESTIMATED > 60; GLUCOSE 115 MG/DL (70-105); LIPASE 564 U/L (8-78); POTASSIUM 4.4 MMOL/L (3.6-5.0); SODIUM 131 MMOL/L (135-145); TOTAL PROTEIN 7.3 G/DL (6.4-8.2)
--- NOTE | 2016-06-01 07:32 | CONSULTATION REPORT ---
DATE OF CONSULTATION: 05/31/2016 DATE OF ADMISSION: 05/31/2016 REFERRING PHYSICIAN: Mr. Stephen Rizvi is a 51-year-old male who presented to [facility] emergency department early this morning with epigastric pain. This gentleman reports that he has had similar episodes; however, not as severe in the past for the past few years. He is very honest about his history and states that he has drank essentially the majority of his life; however, in the past 10 years, he has drank much more heavily. He began to drink approximately a pint of hard liquor, but this escalated to the point where he was drinking a 5th of liquor on a daily basis. He reports that he is still functional with work even with doing this. He reports he has tried to quit on multiple occasions; however, around day 5 through 7, he would experience side effects including anxiety, agitation, delirium tremens, as well as asterixis. A CT scan was performed, which showed inflammation of the pancreas consistent with an acute pancreatitis; however, there was no signs of any pancreatic necrosis, as well as no pancreatic pseudocyst. PAST MEDICAL HISTORY: 1. Alcoholism. 2. COPD. PAST SURGERIES: 1. Left inguinal hernia repair. 2. Left first and second finger repair 04/2016. ALLERGIES: No known drug allergies. MEDICATIONS: None. SOCIAL HISTORY: Positive smoke 40 pack-years. Positive alcohol for greater than 40 years. VITAL SIGNS: Temperature 98, blood pressure 116/80, pulse 94, respirations 16, pulse oximetry 95% on room air. REVIEW OF SYSTEMS: This is a well-nourished male, currently in no acute distress. He is not experiencing any shortness of breath or difficulty breathing. No chest pain, palpitations, or diaphoresis. Intermittent episodes of nausea. No vomiting. He also has epigastric, crampy pain. No diarrhea or constipation. No red blood per rectum. No dark tarry stools. No fever, chills, or recent inadvertent weight loss. PHYSICAL EXAM: CHEST: Scattered rhonchi bilaterally. HEART: Regular. EXTREMITIES: No lower extremity edema. Negative Homans sign. HEENT: No scleral icterus. No cervical lymphadenopathy. ABDOMEN: Soft, nondistended. There is pain in the epigastric region and upon palpation with voluntary guarding. No rebound. LABS: WBC 8.4, hemoglobin 15.4, hematocrit 43, total bilirubin 1.4, AST 131, ALT 94, amylase 822, lipase 1766. ASSESSMENT AND PLAN: This is a 51-year-old male with acute pancreatitis. At this time, it does not appear that he has any Alcolu criteria and is low risk for complications. It was explained to him that if he continues in this manner he will have catastrophic events including recurrent pancreatitis, which can lead to acute and chronic pancreatitis and chronic pain issues, as well as pancreatic pseudocysts. He also reports that he has a history of hepatitis C and this may also lead to early and advanced liver cirrhosis, as well as hepatocellular carcinoma. For now we will proceed with continued conservative management with IV hydration and pain control, as well as serial clinical examinations. Job ID: [id number] Dictated Date: 05/31/2016 17:41:01 Card Brusher Date: 06/01/2016 07:23:23/johnathan MCNALLY
[2016-06-01 08:00] VITALS: BP 134/91
--- NOTE | 2016-06-01 10:05 | Progress Note (SOAP) ---
Subjective Subjective/Events-last exam doing better. tolerating liquids. pain lessened. Objective Exam Vital Signs Date Time Temp Pulse Resp B/P Pulse Ox O2 Delivery O2 Flow Rate FiO2 06/01/16 08:00 97.5 84 18 134/91 98 Room Air 06/01/16 04:00 98.2 82 20 120/82 98 Room Air 06/01/16 01:00 89 06/01/16 00:00 98.0 104 19 119/81 96 Room Air 05/31/16 19:00 102 05/31/16 18:59 98.0 100 16 143/89 100 05/31/16 16:48 97.0 59 14 124/68 97 05/31/16 13:00 94 05/31/16 12:31 98.0 102 16 116/80 95 Room Air 05/31/16 10:47 114 I & O 06/01/16 07:00 Intake Total 3850 ml Output Total 2000 ml Balance 1850 ml Capillary Refill : Less Than 3 Seconds General Appearance: No Apparent Distress HEENT: PERRL/EOMI Neck: Full Range of Motion Respiratory: Chest Non Tender Lungs Clear Cardiovascular: Regular Rate, Rhythm Gastrointestinal: soft tenderness Extremity: Normal Capillary Refill Neurologic/Psychiatric: Alert Oriented x3 Skin: Normal Color Lymphatic: No Adenopathy Results Lab Laboratory Tests 06/01/16 05:54: Alanine Aminotransferase (ALT/SGPT) 73H, Albumin 3.6, Alkaline Phosphatase 99, Anion Gap 11, Aspartate Amino Transf (AST/SGOT) 90H, BUN/Creatinine Ratio 18, Basophils # (Auto) 0.0, Basophils (%) (Auto) 0, Blood Urea Nitrogen 12, Calcium Level 9.5, Carbon Dioxide Level 23, Chloride Level 97L, Creatinine 0.65, Eosinophils # (Auto) 0.1, Eosinophils (%) (Auto) 2, Estimat Glomerular Filtration Rate > 60, Glucose Level 115H, Hematocrit 43, Hemoglobin 14.7, Lipase 564H, Lymphocytes # (Auto) 1.5, Lymphocytes (%) (Auto) 20, Mean Corpuscular Hemoglobin 34, Mean Corpuscular Hemoglobin Concent 35, Mean Corpuscular Volume 98, Mean Platelet Volume 10.9H, Monocytes # (Auto) 2.1H, Monocytes (%) (Auto) 27H, Neutrophils # (Auto) 4.0, Neutrophils (%) (Auto) 51, Platelet Count 131, Potassium Level 4.4, Red Blood Count 4.33L, Red Cell Distribution Width 12.1, Sodium Level 131L, Total Bilirubin 1.3H, Total Protein 7.3, White Blood Count 7.8 Assessment/Plan Assessment/Plan Assess & Plan/Chief Complaint acute pancreatitis. improving with IV hydration and bowel rest. continue conservative therapy. Clinical Quality Measures DVT/VTE Risk/Contraindication: Risk Factor Score Per Nursin RFS Level Per Nursing on Admit: 2=Moderate ILANA RANGEL MD Jun 01, 2016 10:05 am
--- NOTE | 2016-06-01 10:18 | Progress Note-Hospitalist ---
Progress Note HPI/CC on Admission CC: Abdominal Pain HPI: This is a 51yoWM pt that presented to ER with abdominal pain and was found to have pancreatitis, likely alcohol related because pt drinks a pint of whiskey per day. Lipase was >1,[address] Herman has been consulted. CT of abdomen ordered, completed, but results pending as the lab results from this morning. 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 Herman is on board. Pt on detox protocol. Patient Interview: Pt states that he has significant pain. Dr. Romero informs pt that labs and CT results are pending. Dr. Romero informs pt that Dr. Herman will consult with pt and further discuss management. Pt does not have a PCP. Pt has had abdominal pain previously, but has not been diagnosed with pancreatitis. Pt confirms that he drinks excessive ETOH each day. encourages pt to quit ETOH. Pt also smokes. Pt works for a [employer] in [place]. Pt has worked there for 1 year. Pts hand was caught in a [employer]. Physical exam stable. Pt has not vomited since admission to [facility]. Pt states that he has been through alcohol withdrawal before, and feels shaky currently. Pt receiving Ativan and Fentanyl. Scribed by Vadim Vega under the direct supervision of Dr. Romero. Progress Notes/Assess & Plan Date Seen 06/01/16 Admission Dx/Process Assessment: Acute pancreatitis due to alcoholism Smoker Colitis on CT scan Diagonsis/Assessment & Plan Chart Review: No fever Vitals stable HR 84 WBC 7.8 Hgb 14.7 Na+ 131 Total bilirubin 1.3 AST/ALT 90/73 Lipase near normal at 564 Patient Interview: Dr. Romero informs pt that his bloodwork is much improved. Pt has not been ambulating. Dr. Romero encourages pt to begin ambulating. Pt has been started on clear liquids. Pt states that he slept very well last night. Pt has not had a BM, but states that he has not eaten and is not concerned. Physical exam reveals wheezing. Pt states that his pain is manageable. Dr. Romero informs pt that continuing to drink ETOH will return pt to current state, and encourages him to stop drinking ETOH and smoking. Pt understands, and is planning to stop. Pt states that he has some shakes from ETOH withdrawal. Pt has an appointment in [place] this coming Saturday at 10:15. Pt will alert PCP that he may not be able to make the appointment if he is unable to DC by Saturday. no fever, vital signs stable, pleasant, improved Regular rate and rhythm, clear to auscultation bilaterally Mild tenderness left upper quadrant Assessment: Severe acute pancreatitis initial episode with history of alcoholism Smoker with active wheezing today mild Alcohol withdrawal on protocol Plan: Neb treatments. Pt will begin ambulating. Check labs in AM. Telemetry due to detox Maintain Dilaudid Maintain detox protocol. Scribed by Vadim Vega under the direct supervision of Dr. Romero. ORESTES ROMERO DO Jun 01, 2016 10:18
[2016-06-01] MEDS: THIAMINE INJECTION 100 MG, FOLIC ACID INJECTION 1 MG, VITAMIN MULTI INJECTION 10 ML, MA... IV SCH ×5 (11:15)
[2016-06-01] MEDS: LORazepam INJ 2 MG/ML (ATIVAN) VIAL IVP PRN (11:15)
[2016-06-01] MEDS: HYDROcodone/APAP 7.5 MG/325 MG (LORTAB, LORCET PLUS) TABLET PO PRN ×3 (11:15→18:26)
[2016-06-01 12:00] VITALS: BP 138/92
[2016-06-01] MEDS: RT-ALBUTEROL SULF 2.5 MG/3 ML PRE-MIX VIAL INH SCH ×2 (14:57→21:00)
[2016-06-01 16:00] VITALS: BP 117/77
[2016-06-01 19:53] VITALS: BP 126/82
[2016-06-02] VITALS: BP 119/81
[2016-06-02] MEDS: HYDROmorphone (DILAUDID) 2 MG/ML VIAL IVP PRN ×3 (00:08→11:09)
[2016-06-02] MEDS: RT-ALBUTEROL SULF 2.5 MG/3 ML PRE-MIX VIAL INH SCH ×4 (02:40→19:59)
[2016-06-02 04:00] VITALS: BP 133/93
[2016-06-02] MEDS: AA 4.25% W/LYTES IN D5W IV SOL 1,000 ML IV SCH ×4 (06:07→22:10)
[2016-06-02 07:34] LABS: BASOPHILS % (AUTO) 0 % (0-10); EOSINOPHILS # (AUTO) 0.1 10^3/uL (0.0-0.3); EOSINOPHILS % (AUTO) 2 % (0-10); LYMPHOCYTES # (AUTO) 1.5 X 10^3 (1.0-4.0); LYMPHOCYTES % (AUTO) 21 % (12-44); MEAN CORPUSCULAR HEMOGLOBIN 34 PG (25-34); MEAN CORPUSCULAR HGB CONC 34 G/DL (32-36); MEAN CORPUSCULAR VOLUME 99 FL (80-99); MEAN PLATELET VOLUME 10.3 FL (7.4-10.4); MONOCYTES # (AUTO) 1.9 X 10^3 (0.0-1.0); MONOCYTES % (AUTO) 27 % (0-12); NEUTROPHILS # (AUTO) 3.5 X 10^3 (1.8-7.8); NEUTROPHILS % (AUTO) 50 % (42-75); PLATELET COUNT 191 10^3/uL (130-400); RED BLOOD COUNT 4.14 10^6/uL (4.35-5.85); RED CELL DISTRIBUTION WIDTH 12.1 % (10.0-14.5); WHITE BLOOD COUNT 7.1 10^3/uL (4.3-11.0)
[2016-06-02 07:58] LABS: ALANINE AMINOTRANSFERASE 66 U/L (0-55); ALBUMIN 3.6 G/DL (3.2-4.5); ANION GAP 12 MMOL/L (5-14); ASPARTATE AMINO TRANSFERASE 85 U/L (5-34); BILIRUBIN,TOTAL 0.8 MG/DL (0.1-1.0); BLOOD UREA NITROGEN 14 MG/DL (7-18); BUN/CREATININE RATIO 21; CALCIUM 9.6 MG/DL (8.5-10.1); CARBON DIOXIDE 20 MMOL/L (21-32); CHLORIDE 102 MMOL/L (98-107); CREATININE SERUM 0.68 MG/DL (0.60-1.30); GFR ESTIMATED > 60; GLUCOSE 118 MG/DL (70-105); LIPASE 379 U/L (8-78); POTASSIUM 4.2 MMOL/L (3.6-5.0); SODIUM 134 MMOL/L (135-145); TOTAL PROTEIN 7.6 G/DL (6.4-8.2)
[2016-06-02 08:00] VITALS: BP 135/97
[2016-06-02] MEDS: HYDROcodone/APAP 7.5 MG/325 MG (LORTAB, LORCET PLUS) TABLET PO PRN ×3 (08:42→19:06)
[2016-06-02] MEDS: LORazepam INJ 2 MG/ML (ATIVAN) VIAL IM/IV PRN ×3 (09:39→21:18)
[2016-06-02] MEDS: THIAMINE INJECTION 100 MG, FOLIC ACID INJECTION 1 MG, VITAMIN MULTI INJECTION 10 ML, MA... IV SCH ×5 (11:20)
[2016-06-02 12:00] VITALS: BP 128/87
--- NOTE | 2016-06-02 13:47 | Progress Note (SOAP) ---
Subjective Subjective/Events-last exam minimal abdominal pain. Tolerating low-fat diet. Lipase decreasing. Review of Systems General: No Chills, No Night Sweats, No Fatigue, No Malaise HEENT: No Head Aches, No Eye Pain, No Ear Pain, No Dysphasia, No Sinus Congestion, No Post Nasal Drip, No Sore Throat Pulmonary: No Dyspnea, No Cough, No Pleuritic Chest Pain Cardiovascular: No: Chest Pain, Edema, Lt Headedness, Orthopnea, Palpitations, Paroxysmal Noc. Dyspnea Gastrointestinal: : Abdominal Pain Genitourinary: No Dysuria, No Frequency, No Incontinence, No Hematuria, No Retention Musculoskeletal: No: arm pain, back pain, foot pain, hand pain, leg pain, neck pain, other, shoulder pain Neurological: No: Change in speech, Confusion, Incoordination, Numbness, Other , Seizures, Weakness Objective Exam Vital Signs Date Time Temp Pulse Resp B/P Pulse Ox O2 Delivery O2 Flow Rate FiO2 06/02/16 12:00 97.8 95 18 128/87 99 Room Air 06/02/16 09:10 98 06/02/16 08:00 97.8 88 18 135/97 99 Room Air 06/02/16 04:00 97.3 100 20 133/93 100 Room Air 06/02/16 02:41 97 06/02/16 01:00 85 06/02/16 00:00 97.5 93 18 119/81 98 Room Air 06/01/16 20:00 96 Room Air 06/01/16 19:53 98.2 107 20 126/82 98 Room Air 06/01/16 19:00 106 06/01/16 16:00 96.9 111 20 117/77 97 Room Air 06/01/16 14:57 97 I & O 06/02/16 07:00 Intake Total 2580 ml Output Total 3100 ml Balance -520 ml Capillary Refill : Less Than 3 Seconds General Appearance: No Apparent Distress Neck: Normal Inspection Respiratory: Lungs Clear Cardiovascular: Regular Rate, Rhythm Gastrointestinal: non tender soft Extremity: Normal Inspection Neurologic/Psychiatric: Alert Oriented x3 Results Lab Laboratory Tests 06/02/16 07:27: Alanine Aminotransferase (ALT/SGPT) 66H, Albumin 3.6, Alkaline Phosphatase 105, Anion Gap 12, Aspartate Amino Transf (AST/SGOT) 85H, BUN/Creatinine Ratio 21, Basophils # (Auto) 0.0, Basophils (%) (Auto) 0, Blood Urea Nitrogen 14, Calcium Level 9.6, Carbon Dioxide Level 20L, Chloride Level 102, Creatinine 0.68, Eosinophils # (Auto) 0.1, Eosinophils (%) (Auto) 2, Estimat Glomerular Filtration Rate > 60, Glucose Level 118H, Hematocrit 41, Hemoglobin 14.1, Lipase 379H, Lymphocytes # (Auto) 1.5, Lymphocytes (%) (Auto) 21, Mean Corpuscular Hemoglobin 34, Mean Corpuscular Hemoglobin Concent 34, Mean Corpuscular Volume 99, Mean Platelet Volume 10.3, Monocytes # (Auto) 1.9H, Monocytes (%) (Auto) 27H, Neutrophils # (Auto) 3.5, Neutrophils (%) (Auto) 50, Platelet Count 191, Potassium Level 4.2, Red Blood Count 4.14L, Red Cell Distribution Width 12.1, Sodium Level 134L, Total Bilirubin 0.8, Total Protein 7.6, White Blood Count 7.1 Microbiology 05/31/16 Urine Culture - Final, Complete Assessment/Plan Assessment/Plan Assess & Plan/Chief Complaint abdomen with and otitis. Gallbladder is intact and therefore reasonable to rule out gallstones with an ultrasound. Will be scheduled for tomorrow morning Final Diagnosis pancreatitis Clinical Quality Measures DVT/VTE Risk/Contraindication: Risk Factor Score Per Nursin RFS Level Per Nursing on Admit: 2=Moderate OLIVIA FRIEDMAN MD Jun 02, 2016 1:47 pm
[2016-06-02 16:00] VITALS: BP 122/89
[2016-06-02 19:33] VITALS: BP 130/82
[2016-06-03] VITALS: BP 148/91
[2016-06-03] MEDS: RT-ALBUTEROL SULF 2.5 MG/3 ML PRE-MIX VIAL INH SCH ×3 (02:16→15:00)
[2016-06-03] MEDS: HYDROmorphone (DILAUDID) 2 MG/ML VIAL IVP PRN (02:42)
[2016-06-03 04:00] VITALS: BP 142/93
[2016-06-03] MEDS: AA 4.25% W/LYTES IN D5W IV SOL 1,000 ML IV SCH ×2 (06:17→10:15)
[2016-06-03 08:00] VITALS: BP 150/93
[2016-06-03] MEDS: HYDROcodone/APAP 7.5 MG/325 MG (LORTAB, LORCET PLUS) TABLET PO PRN ×2 (10:09→11:15)
--- NOTE | 2016-06-03 10:31 | Diagnostic Imaging Report ---
PROCEDURE: US Gallbladder. TECHNIQUE: Multiple real-time grayscale images were obtained over the right upper quadrant in various projections. INDICATION: Right upper quadrant pain, hepatitis C and alcohol abuse with a history of pancreatitis. Findings: The liver is enlarged up to 21 cm. There is fatty infiltration. There is no biliary ductal dilatation. Common bile duct measures 4.3 mm. There is sludge in the gallbladder. There is no gallbladder wall thickening or pericholecystic fluid. Pancreatic tail is obscured by bowel gas. The right kidney is normal. There is no ascites. IMPRESSION: Hepatomegaly and fatty infiltration of the liver as well as some gallbladder sludge. Dictated by: Dictated on workstation # [id number]
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
--- NOTE | 2016-06-03 10:52 | Discharge Inst-Simple/Standard ---
Discharge Inst-Standard Patient Instructions/Follow Up Plan of Care/Instructions/FU: Take a bland low fat diet Avoid alcohol or risk recurrent painful bouts of pancreatitis Activity as Tolerated: Yes Goal: Avoidance of further episodes Discharge Diet: Avoid Fatty Foods Return to The Hospital For: Recurrent pain Planned Outpatient Orders/Ref. Pneu Vac Indicated: Yes AYDEN ALLEN MD Jun 03, 2016 10:52
[2016-06-03] MEDS ORDERED: HYDR-3816 PO (11:30)
[2016-06-03 15:28] VITALS: BP 150/93
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
== END 2016-06-03 15:31 | disposition home or self-care (01) | DRG 440 ==
LOC: ER 23:18 → 4TH 05-31 00:30
PROVIDERS: ADMIT Internal Medicine; ATTEND Internal Medicine
DX: K85.20 Alcohol induced acute pancreatitis without necrosis or infection (principal); F10.20 Alcohol dependence, uncomplicated; J44.9 Chronic obstructive pulmonary disease, unspecified; B19.20 Unspecified viral hepatitis C without hepatic coma; F17.210 Nicotine dependence, cigarettes, uncomplicated; F17.220 Nicotine dependence, chewing tobacco, uncomplicated; Z23 Encounter for immunization
CPT/HCPCS: 36415; 74177; 76705; 80053; 80320; 81000; 82150; 83690; 85007; 85025; 85027; 85610; 85730; 87088; 94640; 94664; 94760; 96365; 96367; 96375

== ENCOUNTER 2016-08-07 14:31 | Emergency (ER) | payer OTHER, BC ==
[~2016-08-07] VITALS: Ht 190.5 cm; Wt 83.9 kg
[~2016-08-07 14:31] MED LIST changes: +HYDR-3816 PO; +HYDR-3820 PO
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
[2016-08-07] MEDS ORDERED: oxyCODONE/APAP 5/325MG (PERCOCET 5) TABLET PO STA ×2 (16:32→16:39)
[2016-08-07] MEDS ORDERED: CYCL10TA9 PO (16:43)
[2016-08-07 16:48] VITALS: BP 143/93
== END 2016-08-07 16:58 | disposition home or self-care (01) ==
LOC: EDUNIT# 14:31 → ER 14:32
DX: S19.9XXA Unspecified injury of neck, initial encounter (principal); M47.812 Spondylosis without myelopathy or radiculopathy, cervical region; F17.210 Nicotine dependence, cigarettes, uncomplicated; Z98.890 Other specified postprocedural states; V43.62XA Car passenger injured in collision with other type car in traffic accident, initial encounter; Y92.414 Local residential or business street as the place of occurrence of the external cause; Y99.8 Other external cause status
CPT/HCPCS: 70450; 72125; 99283

== ENCOUNTER 2016-11-30 05:52 | Outpatient (CLI) | payer OTHER, BC ==
[~2016-11-30] VITALS: Ht 190.5 cm; Wt 83.9 kg
[~2016-11-30 05:52] MED LIST changes: +CYCL10TA9 PO
== END 2016-11-30 11:27 ==
LOC: PREOP 05:52
PROVIDERS: ATTEND Surgery
DX: Z01.818 Encounter for other preprocedural examination (principal); R19.7 Diarrhea, unspecified; K92.1 Melena

== ENCOUNTER 2016-12-04 09:01 | Day surgery (SDC) | payer BC, OTHER ==
[~2016-12-04] VITALS: Ht 190.5 cm; Wt 83.9 kg
[2016-12-04 09:10] VITALS: BP 111/83
[2016-12-04] MEDS ORDERED: PROPOFOL INJECTION 50 ML IV ONE (09:13)
[2016-12-04] MEDS ORDERED: MIDAZOLAM 2 MG/2 ML (VERSED) VIAL ONE (09:13)
[2016-12-04] MEDS ORDERED: LACTATED RINGERS 1,000 ML IV STA (09:13)
--- NOTE | 2016-12-04 09:58 | Progress Note-Pre Operative ---
Pre-Operative Progress Note H&P Reviewed The H&P was reviewed, patient examined and no changes noted. Date Seen by Provider: Dec 04, 2016 Time Seen by Provider: 09:58 Date H&P Reviewed: Dec 04, 2016 Time H&P Reviewed: 09:58 Pre-Operative Diagnosis: chronic diarrhea, blood in stools PAULETTE ADAM DO Dec 04, 2016 9:58 am
--- NOTE | 2016-12-04 10:46 | Progress Note-Post Operative ---
Post-Operative Progess Note Surgeon (s)/Jewelry Estimator (s) Surgeon PAULETTE ADAM DO Jewelry Estimator: n/a Pre-Operative Diagnosis chronic diarrhea, blood in stools Post-Operative Diagnosis Transervse colon mass, transverse colon polyp Procedure & Operative Findings Date of Procedure 12/04/16 Procedure Performed/Findings Colonoscopy biopsy colon mass with starr inking, hot bx polypectomy transverse colon polyp . Transverse colon mass, transverse colon polyp Anesthesia Type per MDA Estimated Blood Loss Estimated blood loss (mL): scant Specimens/Packing Specimens Removed Transverse colon polyp, Bx of transverse colon mass Packing: none PAULETTE ADAM DO Dec 04, 2016 10:46
--- NOTE | 2016-12-04 10:48 | Discharge Inst-Simple/Standard ---
Discharge Inst-Standard Patient Instructions/Follow Up Plan of Care/Instructions/FU: 1 week Jim Activity as Tolerated: Yes Discharge Diet: Regular Diet PAULETTE ADAM DO Dec 04, 2016 10:47
[2016-12-04 11:05] VITALS: BP 122/87
[2016-12-04 11:30] VITALS: BP 136/100
[2016-12-04 11:40] VITALS: BP 136/100
--- NOTE | 2016-12-04 12:41 | OPERATIVE REPORT ---
DATE OF SERVICE: 12/04/2016 PREOPERATIVE DIAGNOSIS: Chronic diarrhea, blood in stools. POSTOPERATIVE DIAGNOSIS: Transverse colon mass and transverse colon polyp. PROCEDURE: Colonoscopy with biopsy of colon mass with Abeba Inking transverse colon and hot biopsy polypectomy and transverse colon polyp. SURGEON: Paulette Fernandez DO. ANESTHESIA: Per MDA. ESTIMATED BLOOD LOSS: Scant. INDICATIONS: The patient is a 51-year-old male who has had chronic diarrhea. He had been having bright red blood in stools. He understands risks and benefits of procedures and wished to proceed with procedure. Consent was signed in the chart. DESCRIPTION OF PROCEDURE: The patient was taken to the endoscopy suite, placed in left lateral recumbent position. Timeout was performed. Digital rectal exam was performed, some hemorrhoidal disease. No palpable polyps, masses or ulcerations. Scope was inserted in the rectum and advanced all way to the cecum with minimal difficulty. Prep was poor, was with soft and liquid stool still present throughout colon. Copious amounts of irrigation and suction was used to irrigate and suction for better visualization. Scope was then slowly retracted. There are no polyps, masses or ulcerations visualized within the cecum and ascending colon. Within the transverse colon, a large mass was present, which appears to take approximately 60% of the lumen of the colon. Just distal to this area, a total of 4 mL of Abeba ink was injected into the wall of the colon. Multiple biopsies were obtained of the colon mass. Scope was continued slowly retracted back and in the transverse colon another small polyp was present, which hot biopsy polypectomy was performed. Scope was continued slowly retracted back. There were no other polyps, masses or ulcerations visualized within the descending colon, sigmoid colon and rectum. Scope was also retroflexed in the rectum, which no other pathology was noted. Scope was returned to its normal position, slowly withdrawn until completely removed. The patient tolerated procedure well without any complications and was taken to recovery room in stable condition. RECOMMENDATIONS: The patient will await pathology. I will see him back in the clinic in one week to discuss this and further need for surgical intervention and other medical management. Job ID: [id number] DocumentID: [id number] Dictated Date: 12/04/2016 10:52:08 Structural Steel Fitter Date: 12/04/2016 12:40:47 Dictated By: PAULETTE FERNANDEZ DO [facility]
[2016-12-26] MEDS ORDERED: HYDR-3812 PO (17:18)
[2016-12-26] MEDS ORDERED: DOCU-143 PO (17:18)
[2016-12-27] MEDS ORDERED: CEPH-507 PO (09:30)
== END 2016-12-04 11:40 | disposition home or self-care (01) ==
LOC: ENDO 09:01
PROVIDERS: ATTEND Surgery
DX: D12.3 Benign neoplasm of transverse colon (principal); F17.210 Nicotine dependence, cigarettes, uncomplicated; F10.10 Alcohol abuse, uncomplicated
CPT/HCPCS: 88305

== ENCOUNTER 2016-12-19 09:07 | Outpatient (CLI) | payer BC, OTHER ==
[~2016-12-19] VITALS: Ht 190.5 cm; Wt 84.2 kg
[2016-12-19 09:22] VITALS: BP 134/92
[2016-12-19 10:15] LABS: BASOPHILS # (AUTO) 0.1 10^3/uL (0.0-0.1); BASOPHILS % (AUTO) 2 % (0-10); EOSINOPHILS # (AUTO) 0.2 10^3/uL (0.0-0.3); EOSINOPHILS % (AUTO) 3 % (0-10); LYMPHOCYTES % (AUTO) 33 % (12-44); MEAN CORPUSCULAR HEMOGLOBIN 32 PG (25-34); MEAN CORPUSCULAR HGB CONC 34 G/DL (32-36); MEAN CORPUSCULAR VOLUME 93 FL (80-99); MEAN PLATELET VOLUME 10.7 FL (7.4-10.4); MONOCYTES # (AUTO) 1.2 X 10^3 (0.0-1.0); MONOCYTES % (AUTO) 19 % (0-12); NEUTROPHILS # (AUTO) 2.6 X 10^3 (1.8-7.8); NEUTROPHILS % (AUTO) 43 % (42-75); PLATELET COUNT 293 10^3/uL (130-400); RED BLOOD COUNT 4.85 10^6/uL (4.35-5.85); RED CELL DISTRIBUTION WIDTH 14.2 % (10.0-14.5)
[2016-12-19 10:42] LABS: ALANINE AMINOTRANSFERASE 216 U/L (0-55); ALBUMIN 4.2 GM/DL (3.2-4.5); ANION GAP 11 MMOL/L (5-14); ASPARTATE AMINO TRANSFERASE 225 U/L (5-34); BILIRUBIN,TOTAL 0.8 MG/DL (0.1-1.0); BLOOD UREA NITROGEN 9 MG/DL (7-18); BUN/CREATININE RATIO 11; CALCIUM 9.7 MG/DL (8.5-10.1); CARBON DIOXIDE 23 MMOL/L (21-32); CHLORIDE 104 MMOL/L (98-107); CREATININE SERUM 0.79 MG/DL (0.60-1.30); GFR ESTIMATED > 60; GLUCOSE 117 MG/DL (70-105); POTASSIUM 3.8 MMOL/L (3.6-5.0); SODIUM 138 MMOL/L (135-145); TOTAL PROTEIN 8.9 GM/DL (6.4-8.2)
[2016-12-19 10:51] LABS: BASOPHILS % (MANUAL) 2 %; EOSINOPHILS % (MANUAL) 2 %; LYMPHOCYTES % (MANUAL) 27 %; NEUTROPHILS % (MANUAL) 52 %; REACTIVE LYMPHOCYTES 4 %
== END 2016-12-19 12:51 | disposition home or self-care (01) ==
LOC: PREOP 09:07
PROVIDERS: ATTEND Surgery
DX: Z01.812 Encounter for preprocedural laboratory examination; D12.6 Benign neoplasm of colon, unspecified
CPT/HCPCS: 36415; 80053; 85007; 85027; 86850; 86870; 86900; 86901; 86902; 87081

== ENCOUNTER 2016-12-24 07:34 | Inpatient (IN) | payer BC, OTHER ==
[~2016-12-24] VITALS: Ht 190.5 cm; Wt 82.3 kg
[2016-12-24] VITALS (15 sets, daily range): BP systolic 103–136; BP diastolic 70–101
[2016-12-24] MEDS ORDERED: LACTATED RINGERS 1,000 ML IV PRN (08:09)
[2016-12-24] MEDS ORDERED: MIDAZOLAM 2 MG/2 ML (VERSED) VIAL IV ONE ×2 (08:15)
[2016-12-24] MEDS ORDERED: ceFAZolin 2 GM/50 ML NS 50 ML ONE (08:43)
[2016-12-24] MEDS ORDERED: metroNIDAZOLE 500 MG/100 ML IVPB (PRE-MIX) IV ONE (08:45)
[2016-12-24] MEDS ORDERED: ONDANSETRON 4 MG/2 ML (SDV) Z0FRAN ONE ×2 (08:46→12:24)
[2016-12-24] MEDS ORDERED: proPOfol 200 MG/20 ML (DIPRIVAN) VIAL IV ONE (08:46)
[2016-12-24] MEDS ORDERED: SEVOFLURANE (ULTANE) 15 ML INHAL SOLN ONE (08:46)
[2016-12-24] MEDS ORDERED: ROCURONIUM 50 MG/5 ML (ZEMURON) VIAL IV ONE (08:46)
[2016-12-24] MEDS ORDERED: DEXAMETHASONE 10 MG/ML (DECADRON) 1 ML VIAL ONE (08:46)
[2016-12-24] MEDS ORDERED: LIDOCAINE PF 2% 5 ML (XYLOCAINE) VIAL ONE (08:46)
[2016-12-24] MEDS ORDERED: LACTATED RINGERS 1,000 ML IV ONE ×3 (08:46→12:16)
[2016-12-24] MEDS ORDERED: MIDAZOLAM 2 MG/2 ML (VERSED) VIAL ONE (08:47)
[2016-12-24] MEDS ORDERED: fentaNYL INJECTION 250 MCG/5 ML AMP ONE (08:47)
[2016-12-24] MEDS: LACTATED RINGERS 1,000 ML IV PRN ×2 (09:02→12:20)
[2016-12-24] MEDS ORDERED: LACTATED RINGERS 1,000 ML IV SCH (09:55)
[2016-12-24] MEDS ORDERED: diphenhydrAMINE 50 MG/ML INJ (BENADRYL) IV PRN (10:00)
[2016-12-24] MEDS ORDERED: ONDANSETRON 4 MG/2 ML (SDV) Z0FRAN IV PRN (10:00)
[2016-12-24] MEDS ORDERED: NALOXONE 0.4 MG/ML 1 ML (NARCAN) VIAL IV PRN ×2 (10:00)
[2016-12-24] MEDS ORDERED: METOCLOPRAMIDE INJ 10 MG/2 ML (REGLAN) IV PRN (10:00)
--- NOTE | 2016-12-24 10:18 | Progress Note-Pre Operative ---
Pre-Operative Progress Note H&P Reviewed The H&P was reviewed, patient examined and no changes noted. Date Seen by Provider: Dec 24, 2016 Time Seen by Provider: 10:18 Date H&P Reviewed: Dec 24, 2016 Time H&P Reviewed: 10:18 Pre-Operative Diagnosis: tubulovillous adenoma polyp of colon PAULETTE ADAM DO Dec 24, 2016 10:18 am
[2016-12-24] MEDS ORDERED: BUPIVACAINE 0.5% 30 ML (SENSORCAINE) VIAL ONE (10:21)
[2016-12-24] MEDS ORDERED: LIDOCAINE 1% INJ 20 ML (XYLOCAINE) VIAL ONE (10:21)
--- NOTE | 2016-12-24 12:02 | Progress Note-Post Operative ---
Post-Operative Progess Note Surgeon (s)/Composite Bond Worker (s) Surgeon PAULETTE ADAM DO Composite Bond Worker: Dr. Shah Pre-Operative Diagnosis tubulovillous adenoma polyp of colon Post-Operative Diagnosis same Procedure & Operative Findings Date of Procedure 12/24/16 Procedure Performed/Findings open transverse colon resection Anesthesia Type general Estimated Blood Loss Estimated blood loss (mL): min Specimens/Packing Specimens Removed transverse colon PAULETTE DAAM DO Dec 24, 2016 12:02
[2016-12-24] MEDS ORDERED: ceFAZolin 2 GM/50 ML NS 50 ML IV SCH (12:15)
[2016-12-24] MEDS ORDERED: metroNIDAZOLE 500MG/100ML IVPB 100 ML IV SCH (12:15)
[2016-12-24] MEDS ORDERED: NEOSTIGMINE (BLOXIVERZ ) 1 MG/1ML 10 ML VIAL ONE (12:16)
[2016-12-24] MEDS ORDERED: GLYCOPYRROLATE 0.2 MG/ML (ROBINUL) 2 ML VIAL ONE (12:16)
[2016-12-24] MEDS ORDERED: BUPIVACAINE 0.25% 30 ML (SENSORCAINE) VIAL ONE (12:16)
[2016-12-24] MEDS ORDERED: ONDANSETRON 4 MG/2 ML (SDV) Z0FRAN IVP PRN (12:45)
[2016-12-24] MEDS: morphine INJ 10 MG/ML 1ML (SYR OR VIAL) IVP PRN ×2 (12:55→13:00)
[2016-12-24] MEDS ORDERED: THIAMINE INJECTION 100 MG, FOLIC ACID INJECTION 1 MG, MAGNESIUM SULFATE 2 GM, VITAMIN M... IV SCH ×5 (13:45)
[2016-12-24] MEDS ORDERED: D5 1/2 NS 1000 ML IV SOLUTION 1,000 ML IV PRN (13:45)
[2016-12-24] MEDS ORDERED: LORazepam 1 MG (ATIVAN) TAB PO PRN (13:45)
[2016-12-24] MEDS ORDERED: LORazepam INJ 2 MG/ML (ATIVAN) VIAL IM/IV PRN (13:45)
[2016-12-24] MEDS ORDERED: LORazepam INJ 2 MG/ML (ATIVAN) VIAL IV PRN (13:45)
[2016-12-24] MEDS ORDERED: 1/2 NS IV SOLUTION 1,000 ML IV PRN (13:45)
[2016-12-24] MEDS: LACTATED RINGERS 1,000 ML IV SCH ×2 (14:17→20:05)
[2016-12-24] MEDS: THIAMINE INJECTION 100 MG, FOLIC ACID INJECTION 1 MG, MAGNESIUM SULFATE 2 GM, VITAMIN M... IV SCH ×5 (16:02)
[2016-12-24] MEDS: ceFAZolin 2 GM/50 ML NS 50 ML IV SCH (18:31)
[2016-12-24] MEDS: metroNIDAZOLE 500MG/100ML IVPB 100 ML IV SCH (19:07)
[2016-12-24] MEDS: EPIDURAL (SUFENTA 0.6MCG/ML BUPIVA 0.125%) 100 ML BAG EPI PRN (21:03)
[2016-12-25] VITALS (25 sets, daily range): BP systolic 98–144; BP diastolic 66–88
[2016-12-25] MEDS: LACTATED RINGERS 1,000 ML IV SCH ×3 (00:42→20:05)
[2016-12-25] MEDS: metroNIDAZOLE 500MG/100ML IVPB 100 ML IV SCH (02:13)
[2016-12-25] MEDS: ceFAZolin 2 GM/50 ML NS 50 ML IV SCH (03:57)
[2016-12-25] MEDS: EPIDURAL (SUFENTA 0.6MCG/ML BUPIVA 0.125%) 100 ML BAG EPI PRN ×3 (04:43→23:50)
--- NOTE | 2016-12-25 05:18 | OPERATIVE REPORT ---
DATE OF SERVICE: 12/24/2016 PREOPERATIVE DIAGNOSIS: Tubulovillous colon polyp of the transverse colon. POSTOPERATIVE DIAGNOSIS: Tubulovillous colon polyp of the transverse colon. PROCEDURE: Open transverse colectomy. SURGEON: Paulette Fernandez MD. NEGATIVE CHECKER: Dr. Shah, who assisted in retraction, dissection and closure. ANESTHESIA: General. ESTIMATED BLOOD LOSS: Minimal. COMPLICATIONS: None. INDICATIONS: The patient is a 51-year-old male who was having bright red blood in his stools. He was explained risks and benefits of procedure and wished to proceed with the procedure. Consent was signed and in the chart. PROCEDURE: The patient was taken to the operating suite, was prepped and draped in sterile fashion. Surgical pause was performed. Local anesthetic was used to infiltrate superior to the umbilicus. A #15 blade scalpel was used to make an incision and cautery dissection was taken down to the fascia, which was then scored, grasped and elevated. The abdomen was then entered and a balloon trocar was inserted and pneumoperitoneum was achieved. The scope was then inserted and the abdomen was inspected. The tattoo from colonoscopy was demonstrating the colon being marked in the transverse colon. There is a right indirect hernia present which was small in size. The liver appeared to be smooth. There is one area on the left liver anteriorly that had just a very minimal rough appearance present. At this time, it was decided to make a small opening for either the hand port where the colon could be delivered through this to proceed with open colectomy. The abdomen was then desufflated. The incision was opened larger for the hand port. The omentum was grasped and elevated and the colon was brought out through the incision. The colon was already very mobile. Therefore, the mass was able to be brought out through the incision and no problem with proceeding to the incision before completing the entire procedure. The LigaSure and cautery were used to open the lesser sac, removing the omentum from the colon proximal and distal to the mass. The colon was dissected around and PAM 75 blue staple loads were fired both proximally and distally, approximately 12 cm in both directions. LigaSure was then used to remove the mesentery to the colon. A silk suture was placed on the specimen in the distal aspect. The 2 colon ends were then brought together to perform a side to side anastomosis. Small holes were made in the colon. The PAM-75 stapler was then placed down each limb which was then fired and a TA70 was used to finish the side to side anastomosis. A crotch stitch was placed. There was no significant defect in the mesentery after staple load was fired. The liver was reinspected by palpation and felt smooth on both lobes. The stomach had normal appearance. No other abnormalities found within the abdomen. The fascia was then closed with 1-0 looped PDS in a running fashion. The area was then washed and dried and skin was closed using ric. The area was then washed and dried and a sterile bandage was applied. The patient tolerated the procedure well without any complications. He was taken to the recovery room in stable condition. Job ID: [id number] DocumentID: [id number] Dictated Date: 12/24/2016 16:10:27 Voice Teacher Date: 12/25/2016 05:17:33 Dictated By: PAULETTE FERNANDEZ DO
--- NOTE | 2016-12-25 06:20 | Pulmonary Consultation ---
History of Present Illness History of Present Illness Date of Consultation 12/25/16 06:12 Time Seen by Provider: 06:25 Date of Admission History of Present Illness 51yo with hx of heavy tobacco and ETOH dependance presented for elective colon resection secondary to mass that was found on colonoscopy. Surgery went well without complication. Pt is not currently having any symptoms of withdrawal. Pain is controlled. He is only requiring RA oxygen. Pt has no complaints. I am consulted for ICU management. Allergies and Home Medications Allergies Coded Allergies: No Known Drug Allergies (Unverified , 11/30/16) Home Medications No Active Prescriptions or Reported Meds Past Zhezdld-Fuehdz-Avdvqq Hx Patient Social History Alcohol Use: Regular Use Alcohol Beverage of Choice: Vodka Recreational Drug Use: Yes Drug of Choice: MARIJUANA Smoking Status: Current Everyday Smoker Type Used: Cigarettes 2nd Hand Smoke Exposure: Yes Recent Foreign Travel: No Contact w/Someone Who Travel: No Recent Infectious Disease Expo: No Recent Hopitalizations: No Immunizations Up To Date Tetanus Booster (TDap): Less than 5yrs Seasonal Allergies Seasonal Allergies: No Surgeries History of Surgeries: Yes (wisdom teeth, hernia repair, LEFT FINGER) Surgeries: Orthopedic Respiratory History of Respiratory Disorde: No Respiratory Disorders: Asthma, Emphysema Cardiovascular History of Cardiac Disorders: No Neurological History of Neurological Disord: No Reproductive System Hx Reproductive Disorders: No Sexually Transmitted Disease: No HIV/AIDS: No Genitourinary History of Genitourinary Disor: No Gastrointestinal History of Gastrointestinal Di: Yes (HX PANCREATITIS, HEP C) Gastrointestinal Disorders: Chronic Diarrhea, Hepatitis Musculoskeletal History of Musculoskeletal Dis: Yes Musculoskeletal Disorders: Degenerate Disk Disease Endocrine History of Endocrine Disorders: No HEENT History of HEENT Disorders: No Loss of Vision: Bilateral Hearing Impairment: Denies Cancer History of Cancer: No Psychosocial History of Psychiatric Problem: Yes (alcohol dependence with heavily daily use) Integumentary History of Skin or Integumenta: No Blood Transfusions History of Blood Disorders: No Adverse Reaction to a Blood Tr: No Family Medical History Family Medial History: BRAIN CANCER G8 SISTER CROHN'S DISEASE G8 BROTHER LUNG CANCER 19 FATHER SEIZURE DISORDER G8 BROTHER Review of Systems Time Seen by Provider: 06:28 Constitutional: No: Fever, Chills, Sweats, Weakness, Malaise, Other Eyes: No: Pain, Vision change, Conjunctivae inflammation, Eyelid inflammation, Other, Redness ENT: No: Ear pain, Ear discharge, Nose pain, Nose discharge, Nose congestion, Mouth pain, Mouth swelling, Throat pain, Throat swelling, Other Respiratory: No: Cough, Dry, Shortness of breath, SOB with excertion, Wheezing , Hemoptysis, Pleuritic Pain, Sputum, Wheezing, Other Cardiovascular: No: Chest Pain, Palpitations, Orthopnea, Paroxysmal Noc. Dyspnea, Edema, Lt Headedness, Other Gastrointestinal: Constipation, No: Nausea, Vomiting, Abdominal Pain, Diarrhea , Melena, Hematochezia, Other Exam Exam Vital Signs Date Time Temp Pulse Resp B/P (MAP) Pulse Ox O2 Delivery O2 Flow Rate FiO2 12/25/16 05:00 48 10 105/69 94 Room Air 12/25/16 04:00 97.5 51 11 100/69 96 Room Air 12/25/16 04:00 97 Room Air 12/25/16 03:00 48 9 98/67 95 Room Air 12/25/16 02:00 54 12 114/68 92 Room Air 12/25/16 01:02 52 12/25/16 01:00 65 12 106/80 99 Room Air 12/25/16 00:01 98.0 12/25/16 00:00 50 11 101/69 96 Room Air 12/25/16 00:00 97 Room Air 12/24/16 23:00 54 16 107/70 95 Room Air 12/24/16 22:00 52 10 105/70 96 Room Air 12/24/16 21:00 54 17 103/70 95 Room Air 12/24/16 20:01 97.2 Room Air 12/24/16 20:00 97 Room Air 12/24/16 20:00 54 17 105/71 94 Room Air 12/24/16 19:14 75 12/24/16 19:00 86 14 122/89 97 Room Air 12/24/16 18:00 56 8 125/92 94 Room Air 12/24/16 17:00 64 8 115/87 96 Room Air 12/24/16 16:31 97.5 12/24/16 16:00 66 12 123/80 96 Room Air 12/24/16 15:00 76 10 126/93 96 Room Air 12/24/16 14:30 84 14 132/101 96 Room Air 12/24/16 14:15 70 16 128/93 99 Room Air 12/24/16 14:00 76 14 133/87 95 Room Air 12/24/16 13:45 80 13 136/87 95 Room Air 12/24/16 13:30 97.4 93 22 130/92 95 Room Air 12/24/16 08:10 97.5 80 18 111/81 99 Room Air General Appearance: No Apparent Distress, WD/WN HEENT: PERRL/EOMI, TMs Normal, Normal ENT Inspection, Pharynx Normal Neck: Full Range of Motion, Normal Inspection, Non Tender, Supple Respiratory: Chest Non Tender, Lungs Clear, Normal Breath Sounds, No Accessory Muscle Use, No Respiratory Distress Cardiovascular: Regular Rate, Rhythm, No Edema, No Gallop, No JVD, No Murmur Gastrointestinal: soft, No guarding, No rebound Extremity: Normal Capillary Refill, Normal Inspection, No Calf Tenderness Neurologic/Psychiatric: Alert, Oriented x3 Skin: Normal Color, Warm/Dry Lymphatic: No Adenopathy Assessment/Plan Assessment/Plan s/p Colon resection per Dr. Fernandez secondary to mass -Cytology pending -Pain control -IS x 10breaths Hx of ETOH abuse and hx of withdrawal -[place] protocol -Monitor -Banana bag COPD -Pt is currently on RA Tobacco abuse Labs CXR pending. Pt is doing well no complications noted. 254 Clinical Quality Measures DVT/VTE Risk/Contraindication: Risk Factor Score Per Nursin RFS Level Per Nursing on Admit: 3=High KOTA TRUJILLO DO Dec 25, 2016 06:20
[2016-12-25] MEDS ORDERED: RT-ALBUTEROL/IPRATROPIUM 3 ML (DUONEB) VIAL INH PRN (06:30)
[2016-12-25] MEDS: RT-ALBUTEROL/IPRATROPIUM 3 ML (DUONEB) VIAL INH SCH ×3 (06:34→21:34)
[2016-12-25 06:52] LABS: BASOPHILS % (AUTO) 0 % (0-10); EOSINOPHILS % (AUTO) 0 % (0-10); LYMPHOCYTES # (AUTO) 1.3 X 10^3 (1.0-4.0); LYMPHOCYTES % (AUTO) 11 % (12-44); MEAN CORPUSCULAR HEMOGLOBIN 32 PG (25-34); MEAN CORPUSCULAR HGB CONC 34 G/DL (32-36); MEAN CORPUSCULAR VOLUME 95 FL (80-99); MEAN PLATELET VOLUME 10.8 FL (7.4-10.4); MONOCYTES # (AUTO) 0.9 X 10^3 (0.0-1.0); MONOCYTES % (AUTO) 8 % (0-12); NEUTROPHILS # (AUTO) 9.4 X 10^3 (1.8-7.8); NEUTROPHILS % (AUTO) 81 % (42-75); PLATELET COUNT 257 10^3/uL (130-400); RED BLOOD COUNT 4.49 10^6/uL (4.35-5.85); RED CELL DISTRIBUTION WIDTH 13.8 % (10.0-14.5); WHITE BLOOD COUNT 11.6 10^3/uL (4.3-11.0)
[2016-12-25 07:04] LABS: ANION GAP 10 MMOL/L (5-14); BLOOD UREA NITROGEN 8 MG/DL (7-18); BUN/CREATININE RATIO 11; CALCIUM 8.9 MG/DL (8.5-10.1); CARBON DIOXIDE 23 MMOL/L (21-32); CHLORIDE 104 MMOL/L (98-107); CREATININE SERUM 0.76 MG/DL (0.60-1.30); GFR ESTIMATED > 60; GLUCOSE 132 MG/DL (70-105); MAGNESIUM 2.1 MG/DL (1.8-2.4); PHOSPHORUS 3.4 MG/DL (2.3-4.7); POTASSIUM 4.6 MMOL/L (3.6-5.0); SODIUM 137 MMOL/L (135-145)
--- NOTE | 2016-12-25 07:27 | Diagnostic Imaging Report ---
INDICATION: Tubulovillous adenoma, shortness of breath. COMPARISON: 04/16/2016. FINDINGS: Visible lungs are clear. Please note the posterior lower lobes are poorly evaluated by portable radiography. No pleural effusion or pneumothorax. Normal cardiomediastinal silhouette. Small volume of pneumoperitoneum is compatible with patient's recent surgery. IMPRESSION: 1. Expected pneumoperitoneum status post partial colon resection. 2. No acute cardiopulmonary process by portable radiography. Dictated by: Dictated on workstation # [id number]
[2016-12-25] MEDS: PANTOPRAZOLE 40 MG/10 ML (PROTONIX) VIAL IVP SCH (09:26)
[2016-12-25] MEDS: THIAMINE INJECTION 100 MG, FOLIC ACID INJECTION 1 MG, MAGNESIUM SULFATE 2 GM, VITAMIN M... IV SCH ×5 (10:39)
--- NOTE | 2016-12-25 13:38 | Anesthesia-General Post-Op ---
General Significant Intra-Op Events Notes Anesthesia Note ([id number]) Patient Condition Mental Status/LOC: Same as Preop Cardiovascular: Satisfactory Nausea/Vomiting: Absent Respiratory: Satisfactory Pain: Controlled Complications: Absent Post Op Complications Complications None Follow Up Care/Instructions Patient Instructions None needed. Anesthesia/Patient Condition Patient Condition Patient is doing well, no complaints, stable vital signs, no apparent adverse anesthesia problems. Epidural is working well. Very minimal abdominal pain. Moving both LE, Lt greater than Rt currently. No nausea or anesthetic recall of events. Will leave epidural at current settings and continue to evaluate. VENANCIO BARTH DO Dec 25, 2016 13:38
--- NOTE | 2016-12-25 15:03 | Progress Note ---
Subjective Date Seen by Provider: Dec 25, 2016 Time Seen by Provider: 14:58 Subjective/Events-last exam Patient pain controlled. No flatus or bm. No n/v fever sweats chills shortness of breath or chest pain. Using incentive spirometer. No new complaints. Objective Exam Vital Signs Date Time Temp Pulse Resp B/P (MAP) Pulse Ox O2 Delivery O2 Flow Rate FiO2 12/25/16 14:40 97 Room Air 12/25/16 13:00 88 14 144/75 96 Room Air 12/25/16 13:00 78 12/25/16 12:30 98.0 Room Air 12/25/16 12:00 96 Room Air 12/25/16 12:00 57 8 119/80 96 Room Air 12/25/16 11:00 61 9 110/71 93 Room Air 12/25/16 10:00 60 9 110/76 94 Room Air 12/25/16 09:00 71 12 110/66 96 Room Air 12/25/16 08:30 97.9 111 12 117/72 96 Room Air 12/25/16 08:00 112 16 126/88 96 Room Air 12/25/16 08:00 96 Room Air 12/25/16 07:00 104 12/25/16 07:00 95 12 117/72 95 Room Air 12/25/16 06:34 96 Room Air 12/25/16 06:00 50 11 106/74 97 Room Air 12/25/16 05:00 48 10 105/69 94 Room Air 12/25/16 04:00 97.5 51 11 100/69 96 Room Air 12/25/16 04:00 97 Room Air 12/25/16 03:00 48 9 98/67 95 Room Air 12/25/16 02:00 54 12 114/68 92 Room Air 12/25/16 01:02 52 12/25/16 01:00 65 12 106/80 99 Room Air 12/25/16 00:01 98.0 12/25/16 00:00 50 11 101/69 96 Room Air 12/25/16 00:00 97 Room Air 12/24/16 23:00 54 16 107/70 95 Room Air 12/24/16 22:00 52 10 105/70 96 Room Air 12/24/16 21:00 54 17 103/70 95 Room Air 12/24/16 20:01 97.2 Room Air 12/24/16 20:00 97 Room Air 12/24/16 20:00 54 17 105/71 94 Room Air 12/24/16 19:14 75 12/24/16 19:00 86 14 122/89 97 Room Air 12/24/16 18:00 56 8 125/92 94 Room Air 12/24/16 17:00 64 8 115/87 96 Room Air 12/24/16 16:31 97.5 12/24/16 16:00 66 12 123/80 96 Room Air 12/24/16 15:00 76 10 126/93 96 Room Air I & O 12/26/16 06:59 Intake Total 2195.2 ml Output Total 550 ml Balance 1645.2 ml Capillary Refill : General Appearance: No Apparent Distress, WD/WN HEENT: PERRL/EOMI, TMs Normal, Normal ENT Inspection, Pharynx Normal Neck: Full Range of Motion, Normal Inspection, Non Tender, Supple Respiratory: Chest Non Tender, No Accessory Muscle Use, No Respiratory Distress Cardiovascular: Regular Rate, Rhythm Gastrointestinal: soft (incision intact no signs of infection), No guarding, No rebound Extremity: Normal Capillary Refill, Normal Inspection, No Calf Tenderness Neurologic/Psychiatric: Alert, Oriented x3 Skin: Normal Color, Warm/Dry Lymphatic: No Adenopathy Results Lab Laboratory Tests 12/25/16 06:35: White Blood Count 11.6H, Red Blood Count 4.49, Hemoglobin 14.4, Hematocrit 43, Mean Corpuscular Volume 95, Mean Corpuscular Hemoglobin 32, Mean Corpuscular Hemoglobin Concent 34, Red Cell Distribution Width 13.8, Platelet Count 257, Mean Platelet Volume 10.8H, Neutrophils (%) (Auto) 81H, Lymphocytes (%) (Auto) 11L, Monocytes (%) (Auto) 8, Eosinophils (%) (Auto) 0, Basophils (%) (Auto) 0, Neutrophils # (Auto) 9.4H, Lymphocytes # (Auto) 1.3, Monocytes # (Auto) 0.9, Eosinophils # (Auto) 0.0, Basophils # (Auto) 0.0, Sodium Level 137, Potassium Level 4.6, Chloride Level 104, Carbon Dioxide Level 23, Anion Gap 10, Blood Urea Nitrogen 8, Creatinine 0.76, Estimat Glomerular Filtration Rate > 60, BUN/ Creatinine Ratio 11, Glucose Level 132H, Calcium Level 8.9, Phosphorus Level 3.4 , Magnesium Level 2.1 Assessment/Plan Assessment/Plan Assessment/Plan s/p open partial colectomy for tubulovillous polyp transverse colon EtOH abuse On ciwa protocol epidural for pain control using incentive spirometer sheikh for accurate i/o scd's for dvt prophylaxis since epidural clears Clinical Quality Measures DVT/VTE Risk/Contraindication: Risk Factor Score Per Nursin RFS Level Per Nursing on Admit: 3=High PAULETTE ADAM DO Dec 25, 2016 15:03
[2016-12-26] VITALS (14 sets, daily range): BP systolic 108–153; BP diastolic 67–99
[2016-12-26] MEDS: LACTATED RINGERS 1,000 ML IV SCH ×3 (01:06→17:13)
[2016-12-26 05:03] LABS: BASOPHILS % (AUTO) 0 % (0-10); EOSINOPHILS % (AUTO) 0 % (0-10); LYMPHOCYTES % (AUTO) 21 % (12-44); MEAN CORPUSCULAR HEMOGLOBIN 31 PG (25-34); MEAN CORPUSCULAR HGB CONC 33 G/DL (32-36); MEAN CORPUSCULAR VOLUME 96 FL (80-99); MEAN PLATELET VOLUME 10.9 FL (7.4-10.4); MONOCYTES # (AUTO) 0.9 X 10^3 (0.0-1.0); MONOCYTES % (AUTO) 9 % (0-12); NEUTROPHILS # (AUTO) 6.4 X 10^3 (1.8-7.8); NEUTROPHILS % (AUTO) 69 % (42-75); PLATELET COUNT 209 10^3/uL (130-400); RED BLOOD COUNT 4.31 10^6/uL (4.35-5.85); RED CELL DISTRIBUTION WIDTH 14.3 % (10.0-14.5); WHITE BLOOD COUNT 9.3 10^3/uL (4.3-11.0)
[2016-12-26 05:25] LABS: ANION GAP 9 MMOL/L (5-14); BLOOD UREA NITROGEN 9 MG/DL (7-18); BUN/CREATININE RATIO 14; CALCIUM 8.8 MG/DL (8.5-10.1); CARBON DIOXIDE 24 MMOL/L (21-32); CHLORIDE 106 MMOL/L (98-107); CREATININE SERUM 0.64 MG/DL (0.60-1.30); GFR ESTIMATED > 60; GLUCOSE 100 MG/DL (70-105); SODIUM 139 MMOL/L (135-145)
[2016-12-26] MEDS: EPIDURAL (SUFENTA 0.6MCG/ML BUPIVA 0.125%) 100 ML BAG EPI PRN (05:55)
--- NOTE | 2016-12-26 06:09 | Pulmonary Progress Note ---
Subjective Time Seen by Provider: 06:08 Subjective/Events-last exam Pt is doing well. No complications noted. Exam Exam Vital Signs Date Time Temp Pulse Resp B/P (MAP) Pulse Ox O2 Delivery O2 Flow Rate FiO2 12/26/16 05:00 89 30 126/85 97 Room Air 12/26/16 04:00 70 8 126/84 95 Room Air 12/26/16 04:00 98.5 12/26/16 04:00 97 Room Air 12/26/16 03:00 70 7 116/79 95 Room Air 12/26/16 02:00 68 7 108/74 96 Room Air 12/26/16 01:16 70 12/26/16 01:00 76 10 111/76 96 Room Air 12/26/16 00:00 97 Room Air 12/26/16 00:00 79 15 118/67 93 Room Air 12/25/16 23:51 99.3 12/25/16 23:05 77 9 109/71 94 Room Air 12/25/16 22:05 84 9 113/69 97 Room Air 12/25/16 21:35 98 Room Air 12/25/16 21:09 66 9 111/74 99 Room Air 12/25/16 20:00 97.8 95 19 119/75 99 Room Air 12/25/16 20:00 97 Room Air 12/25/16 19:42 67 12/25/16 19:00 64 12 112/72 98 Room Air 12/25/16 18:00 81 8 119/74 98 Room Air 12/25/16 17:00 81 9 134/79 96 Room Air 12/25/16 16:15 98.4 12/25/16 16:00 81 12 123/75 97 Room Air 12/25/16 16:00 96 Room Air 12/25/16 15:00 83 16 124/85 95 Room Air 12/25/16 14:40 97 Room Air 12/25/16 14:00 64 10 135/ 96 Room Air 12/25/16 13:00 88 14 144/75 96 Room Air 12/25/16 13:00 78 12/25/16 12:30 98.0 Room Air 12/25/16 12:00 96 Room Air 12/25/16 12:00 57 8 119/80 96 Room Air 12/25/16 11:00 61 9 110/71 93 Room Air 12/25/16 10:00 60 9 110/76 94 Room Air 12/25/16 09:00 71 12 110/66 96 Room Air 12/25/16 08:30 97.9 111 12 117/72 96 Room Air 12/25/16 08:00 112 16 126/88 96 Room Air 12/25/16 08:00 96 Room Air 12/25/16 07:00 104 12/25/16 07:00 95 12 117/72 95 Room Air 12/25/16 06:34 96 Room Air General Appearance: No Apparent Distress, WD/WN HEENT: PERRL/EOMI, TMs Normal, Normal ENT Inspection, Pharynx Normal Neck: Full Range of Motion, Normal Inspection, Non Tender, Supple Respiratory: Chest Non Tender, No Accessory Muscle Use, No Respiratory Distress Cardiovascular: Regular Rate, Rhythm Gastrointestinal: soft (incision intact no signs of infection), No guarding, No rebound Extremity: Normal Capillary Refill, Normal Inspection, No Calf Tenderness Neurologic/Psychiatric: Alert, Oriented x3 Skin: Normal Color, Warm/Dry Lymphatic: No Adenopathy Results Lab Laboratory Tests 12/25/16 06:35 12/26/16 04:51 Assessment/Plan Assessment/Plan s/p Colon resection per Dr. Fernandez secondary to mass -Cytology pending -Pain control -IS x 10breaths Hx of ETOH abuse and hx of withdrawal -[place] protocol -Monitor -Banana bag COPD -Pt is currently on RA -SVNs -IS Tobacco abuse Labs CXR pending. Pt is doing well no complications noted. I am going to sign off please call with any questions. 232 Clinical Quality Measures DVT/VTE Risk/Contraindication: Risk Factor Score Per Nursin RFS Level Per Nursing on Admit: 3=High KOTA TRUJILLO DO Dec 26, 2016 06:09
[2016-12-26] MEDS: RT-ALBUTEROL/IPRATROPIUM 3 ML (DUONEB) VIAL INH SCH ×3 (06:19→19:24)
--- NOTE | 2016-12-26 08:14 | Diagnostic Imaging Report ---
INDICATION: Dyspnea. Compared 12/25 FINDINGS: Pneumoperitoneum due to the right hemidiaphragm is not substantially changed from radiograph of one day prior. Lungs themselves are felt clear. The heart size within normal limits. There is suggestion of some mild perihilar atelectasis. No pneumothorax or pleural fluid. IMPRESSION: Redemonstration of pneumoperitoneum. No acute cardiopulmonary abnormality aside from some mild atelectasis. Dictated by: Dictated on workstation # [id number]
[2016-12-26] MEDS: PANTOPRAZOLE 40 MG/10 ML (PROTONIX) VIAL IVP SCH (09:26)
[2016-12-26] MEDS: THIAMINE INJECTION 100 MG, FOLIC ACID INJECTION 1 MG, MAGNESIUM SULFATE 2 GM, VITAMIN M... IV SCH ×5 (09:54)
[2016-12-26] MEDS: morphine INJ 10 MG/ML 1ML (SYR OR VIAL) IVP PRN ×4 (10:05→20:10)
[2016-12-26] MEDS ORDERED: DOCU-143 PO (17:18)
[2016-12-26] MEDS ORDERED: HYDR-3812 PO (17:18)
--- NOTE | 2016-12-26 17:20 | Discharge Inst-Simple/Standard ---
Discharge Inst-Standard Discharge Medications New, Converted or Re-Newed RX: RX on Chart Patient Instructions/Follow Up Plan of Care/Instructions/FU: 2 weeks Jim Activity as Tolerated: No Discharge Diet: Soft Diet Other Inst to Patient Follow up Appt: Make appointment for 2 week. Instructions: No lifting greater than 10 pounds. No strenuous activity. May shower in 24 hours, no tub bath or soaking. Use incentive spirometer at home as directed. No Smoking Skin/Wound Care: May remove bandages. You may change dressing daily or not have one at all. Symptoms to Report: Appetite Changes, Extremity Discoloration, Numbness/Tingling, Swelling Increased , Bleeding Excessive, Eyesight Changes, Pain Increased, Urine Color Change, Constipation(Persistent), Fever over 101 degree F, Pain/Pressure in chest, Urinating Difficulty, Cough Up/Vomit Blood, Heart Beat Irreg/Pounding, Pain/ Pressure in jaw, Vaginal Bleeding Increase, Cramps in feet or legs, Lightheadedness, Pain/Pressure in shoulder, Diarrhea(Persistent), Memory Changes Suddenly, Questions/Concerns, Weight gain consecutive days, Dizziness/ Fainting, Nausea/Vomiting, Shortness of Breath, Weight gain over 2 pounds If questions or concerns contact your physician Or seek help at emergency department. Planned Outpatient Orders/Ref. Pneu Vac Indicated: Yes PAULETTE ADAM DO Dec 26, 2016 17:20
--- NOTE | 2016-12-26 17:22 | Progress Note ---
Subjective Date Seen by Provider: Dec 26, 2016 Time Seen by Provider: 08:30 Subjective/Events-last exam Patient doing well. Pain is controlled. He is passing some flatus. Patient still with epidural and Dixon which is going to be removed today. Patient with no complaints. He is using incentive spirometer. Objective Exam Vital Signs Date Time Temp Pulse Resp B/P (MAP) Pulse Ox O2 Delivery O2 Flow Rate FiO2 12/26/16 16:06 98.9 89 18 136/91 97 Room Air 12/26/16 15:23 97 Room Air 12/26/16 11:00 76 7 120/83 93 Room Air 12/26/16 10:00 94 14 131/92 94 Room Air 12/26/16 09:00 91 12 141/98 94 Room Air 12/26/16 08:00 97 Room Air 12/26/16 08:00 85 8 122/82 95 Room Air 12/26/16 07:27 84 12/26/16 07:00 82 8 129/85 96 Room Air 12/26/16 06:19 96 Room Air 12/26/16 06:10 69 8 118/85 97 Room Air 12/26/16 05:00 89 30 126/85 97 Room Air 12/26/16 04:00 70 8 126/84 95 Room Air 12/26/16 04:00 98.5 12/26/16 04:00 97 Room Air 12/26/16 03:00 70 7 116/79 95 Room Air 12/26/16 02:00 68 7 108/74 96 Room Air 12/26/16 01:16 70 12/26/16 01:00 76 10 111/76 96 Room Air 12/26/16 00:00 97 Room Air 12/26/16 00:00 79 15 118/67 93 Room Air 12/25/16 23:51 99.3 12/25/16 23:05 77 9 109/71 94 Room Air 12/25/16 22:05 84 9 113/69 97 Room Air 12/25/16 21:35 98 Room Air 12/25/16 21:09 66 9 111/74 99 Room Air 12/25/16 20:00 97.8 95 19 119/75 99 Room Air 12/25/16 20:00 97 Room Air 12/25/16 19:42 67 12/25/16 19:00 64 12 112/72 98 Room Air 12/25/16 18:00 81 8 119/74 98 Room Air I & O 12/27/16 07:00 Intake Total 2375.2 ml Output Total 200 ml Balance 2175.2 ml Capillary Refill : General Appearance: No Apparent Distress, WD/WN HEENT: PERRL/EOMI, TMs Normal, Normal ENT Inspection, Pharynx Normal Neck: Full Range of Motion, Normal Inspection, Non Tender, Supple Respiratory: Chest Non Tender, No Accessory Muscle Use, No Respiratory Distress Cardiovascular: Regular Rate, Rhythm Gastrointestinal: soft (incision intact no signs of infection, no significant tenderness), No guarding, No rebound Extremity: Normal Capillary Refill, Normal Inspection, No Calf Tenderness Neurologic/Psychiatric: Alert, Oriented x3 Skin: Normal Color, Warm/Dry Lymphatic: No Adenopathy Results Lab Laboratory Tests 12/26/16 04:51: White Blood Count 9.3, Red Blood Count 4.31L, Hemoglobin 13.5, Hematocrit 41, Mean Corpuscular Volume 96, Mean Corpuscular Hemoglobin 31, Mean Corpuscular Hemoglobin Concent 33, Red Cell Distribution Width 14.3, Platelet Count 209, Mean Platelet Volume 10.9H, Neutrophils (%) (Auto) 69, Lymphocytes (%) (Auto) 21 , Monocytes (%) (Auto) 9, Eosinophils (%) (Auto) 0, Basophils (%) (Auto) 0, Neutrophils # (Auto) 6.4, Lymphocytes # (Auto) 2.0, Monocytes # (Auto) 0.9, Eosinophils # (Auto) 0.0, Basophils # (Auto) 0.0, Sodium Level 139, Potassium Level 4.0, Chloride Level 106, Carbon Dioxide Level 24, Anion Gap 9, Blood Urea Nitrogen 9, Creatinine 0.64, Estimat Glomerular Filtration Rate > 60, BUN/ Creatinine Ratio 14, Glucose Level 100, Calcium Level 8.8, Phosphorus Level 3.2 , Magnesium Level 2.0 Assessment/Plan Assessment/Plan Assessment/Plan s/p open partial colectomy for tubulovillous polyp transverse colon EtOH abuse On wa protocol Epidural and Dixon to be DC'd this morning. Incentive spirometer scd's for dvt prophylaxis Ambulate Full liquids Clinical Quality Measures DVT/VTE Risk/Contraindication: Risk Factor Score Per Nursin RFS Level Per Nursing on Admit: 3=High PAULETTE ADAM DO Dec 26, 2016 17:22
[2016-12-26] MEDS: HYDROcodone/APAP 5 MG/325 MG (LORTAB) TAB PO PRN ×2 (17:39→22:02)
[2016-12-26] MEDS: DOCUSATE SODIUM 100 MG (COLACE) CAP PO SCH (20:09)
[2016-12-27] VITALS: BP 160/70
[2016-12-27] MEDS: morphine INJ 10 MG/ML 1ML (SYR OR VIAL) IVP PRN ×2 (00:28→04:34)
[2016-12-27] MEDS: LACTATED RINGERS 1,000 ML IV SCH (01:31)
[2016-12-27] MEDS: HYDROcodone/APAP 5 MG/325 MG (LORTAB) TAB PO PRN (03:00)
[2016-12-27 04:00] VITALS: BP 158/98
[2016-12-27 05:00] VITALS: BP 150/82
[2016-12-27 06:46] LABS: BASOPHILS % (AUTO) 0 % (0-10); EOSINOPHILS # (AUTO) 0.1 10^3/uL (0.0-0.3); EOSINOPHILS % (AUTO) 1 % (0-10); LYMPHOCYTES # (AUTO) 1.4 X 10^3 (1.0-4.0); LYMPHOCYTES % (AUTO) 22 % (12-44); MEAN CORPUSCULAR HEMOGLOBIN 31 PG (25-34); MEAN CORPUSCULAR HGB CONC 33 G/DL (32-36); MEAN CORPUSCULAR VOLUME 96 FL (80-99); MEAN PLATELET VOLUME 11.7 FL (7.4-10.4); MONOCYTES # (AUTO) 1.2 X 10^3 (0.0-1.0); MONOCYTES % (AUTO) 19 % (0-12); NEUTROPHILS # (AUTO) 3.8 X 10^3 (1.8-7.8); NEUTROPHILS % (AUTO) 58 % (42-75); PLATELET COUNT 194 10^3/uL (130-400); RED BLOOD COUNT 4.64 10^6/uL (4.35-5.85); WHITE BLOOD COUNT 6.5 10^3/uL (4.3-11.0)
[2016-12-27 07:04] LABS: ANION GAP 11 MMOL/L (5-14); BLOOD UREA NITROGEN 6 MG/DL (7-18); BUN/CREATININE RATIO 9; CALCIUM 9.4 MG/DL (8.5-10.1); CARBON DIOXIDE 26 MMOL/L (21-32); CHLORIDE 99 MMOL/L (98-107); CREATININE SERUM 0.67 MG/DL (0.60-1.30); GFR ESTIMATED > 60; GLUCOSE 95 MG/DL (70-105); MAGNESIUM 1.8 MG/DL (1.8-2.4); PHOSPHORUS 2.8 MG/DL (2.3-4.7); POTASSIUM 3.9 MMOL/L (3.6-5.0); SODIUM 136 MMOL/L (135-145)
--- NOTE | 2016-12-27 07:17 | Pulmonary Progress Note ---
Subjective Time Seen by Provider: 07:24 Subjective/Events-last exam PT is doing well. No complications noted. Exam Exam Vital Signs Date Time Temp Pulse Resp B/P (MAP) Pulse Ox O2 Delivery O2 Flow Rate FiO2 12/27/16 04:00 97.2 99 16 158/98 96 Room Air 12/27/16 00:00 98.0 114 22 160/70 97 Room Air 12/26/16 20:00 Room Air 12/26/16 19:24 94 Room Air 12/26/16 19:19 99.1 105 20 153/99 96 Room Air 12/26/16 16:06 98.9 89 18 136/91 97 Room Air 12/26/16 15:23 97 Room Air 12/26/16 11:00 76 7 120/83 93 Room Air 12/26/16 10:00 94 14 131/92 94 Room Air 12/26/16 09:00 91 12 141/98 94 Room Air 12/26/16 08:00 97 Room Air 12/26/16 08:00 85 8 122/82 95 Room Air 12/26/16 07:27 84 General Appearance: No Apparent Distress, WD/WN HEENT: PERRL/EOMI, TMs Normal, Normal ENT Inspection, Pharynx Normal Neck: Full Range of Motion, Normal Inspection, Non Tender, Supple Respiratory: Chest Non Tender, No Accessory Muscle Use, No Respiratory Distress Cardiovascular: Regular Rate, Rhythm Gastrointestinal: soft (incision intact no signs of infection, no significant tenderness), No guarding, No rebound Extremity: Normal Capillary Refill, Normal Inspection, No Calf Tenderness Neurologic/Psychiatric: Alert, Oriented x3 Skin: Normal Color, Warm/Dry Lymphatic: No Adenopathy Results Lab Laboratory Tests 12/26/16 04:51 12/27/16 05:20 Assessment/Plan Assessment/Plan s/p Colon resection per Dr. Fernandez secondary to mass -Cytology pending -Pain control Atelectasis -Increase activity -IS x 10breaths Hx of ETOH abuse and hx of withdrawal -[place] protocol -Monitor -Banana bag COPD-- stable -Pt is currently on RA -SVNs -IS Tobacco abuse Pt is doing well no complications noted. I am going to sign off please call for questions or concerns., 232 Clinical Quality Measures DVT/VTE Risk/Contraindication: Risk Factor Score Per Nursin RFS Level Per Nursing on Admit: 3=High CASSANDRA,KOTA M DO Dec 27, 2016 07:17
[2016-12-27] MEDS: RT-ALBUTEROL/IPRATROPIUM 3 ML (DUONEB) VIAL INH SCH (07:28)
[2016-12-27 07:43] LABS: BASOPHILS % (MANUAL) 0 %; EOSINOPHILS % (MANUAL) 2 %; LYMPHOCYTES % (MANUAL) 28 %; NEUTROPHILS % (MANUAL) 53 %
[2016-12-27] MEDS: PANTOPRAZOLE 40 MG/10 ML (PROTONIX) VIAL IVP SCH (07:54)
[2016-12-27] MEDS: DOCUSATE SODIUM 100 MG (COLACE) CAP PO SCH (07:54)
[2016-12-27 08:00] VITALS: BP 165/99
[2016-12-27] MEDS ORDERED: HYDROcodone/APAP 5 MG/325 MG (LORTAB) TAB PO PRN (08:00)
[2016-12-27] MEDS ORDERED: CEPH-507 PO (09:30)
--- NOTE | 2016-12-27 09:34 | Progress Note ---
Subjective Date Seen by Provider: Dec 27, 2016 Time Seen by Provider: 09:32 Subjective/Events-last exam Doing well. Pain controlled. Passing flatus and BM. No n/v fever sweats chills shortness of breath or chest pain. Objective Exam Vital Signs Date Time Temp Pulse Resp B/P (MAP) Pulse Ox O2 Delivery O2 Flow Rate FiO2 12/27/16 08:00 96.2 93 16 165/99 94 Room Air 12/27/16 07:29 97 Room Air 12/27/16 05:00 150/82 12/27/16 04:00 97.2 99 16 158/98 96 Room Air 12/27/16 00:00 98.0 114 22 160/70 97 Room Air 12/26/16 20:00 Room Air 12/26/16 19:24 94 Room Air 12/26/16 19:19 99.1 105 20 153/99 96 Room Air 12/26/16 16:06 98.9 89 18 136/91 97 Room Air 12/26/16 15:23 97 Room Air 12/26/16 11:00 76 7 120/83 93 Room Air 12/26/16 10:00 94 14 131/92 94 Room Air I & O 12/28/16 07:00 Intake Total 800 ml Balance 800 ml Capillary Refill : General Appearance: No Apparent Distress, WD/WN HEENT: PERRL/EOMI, TMs Normal, Normal ENT Inspection, Pharynx Normal Neck: Full Range of Motion, Normal Inspection, Non Tender, Supple Respiratory: Chest Non Tender, No Accessory Muscle Use, No Respiratory Distress Cardiovascular: Regular Rate, Rhythm Gastrointestinal: soft (incision intact slight erythema around it), No guarding , No rebound Extremity: Normal Capillary Refill, Normal Inspection, No Calf Tenderness Neurologic/Psychiatric: Alert, Oriented x3 Skin: Normal Color, Warm/Dry Lymphatic: No Adenopathy Results Lab Laboratory Tests 12/27/16 05:20: White Blood Count 6.5, Red Blood Count 4.64, Hemoglobin 14.5, Hematocrit 45, Mean Corpuscular Volume 96, Mean Corpuscular Hemoglobin 31, Mean Corpuscular Hemoglobin Concent 33, Red Cell Distribution Width 14.0, Platelet Count 194, Mean Platelet Volume 11.7H, Neutrophils (%) (Auto) 58, Lymphocytes (%) (Auto) 22 , Monocytes (%) (Auto) 19H, Eosinophils (%) (Auto) 1, Basophils (%) (Auto) 0, Neutrophils # (Auto) 3.8, Lymphocytes # (Auto) 1.4, Monocytes # (Auto) 1.2H, Eosinophils # (Auto) 0.1, Basophils # (Auto) 0.0, Neutrophils % (Manual) 53, Lymphocytes % (Manual) 28, Monocytes % (Manual) 17, Eosinophils % (Manual) 2, Basophils % (Manual) 0, Blood Morphology Comment NORMAL, Sodium Level 136, Potassium Level 3.9, Chloride Level 99, Carbon Dioxide Level 26, Anion Gap 11, Blood Urea Nitrogen 6L, Creatinine 0.67, Estimat Glomerular Filtration Rate > 60 , BUN/Creatinine Ratio 9, Glucose Level 95, Calcium Level 9.4, Phosphorus Level 2.8, Magnesium Level 1.8 Assessment/Plan Assessment/Plan Assessment/Plan s/p 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
--- NOTE | 2016-12-27 10:22 | Diagnostic Imaging Report ---
EXAM: Portable upright radiograph of the chest. INDICATION: Shortness of breath. FINDINGS: There is minimal opacity in the left infrahilar region favored to be related to atelectasis. The the pneumoperitoneum seen previously has improved. The right lung is clear. The heart size is normal. No effusion or pneumothorax. IMPRESSION: Mild left infrahilar opacity, likely related to atelectasis. Dictated by: Dictated on workstation # [id number]
[2016-12-28] MEDS ORDERED: PANTOPRAZOLE 40 MG (PROTONIX) TAB PO SCH (07:00)
== END 2016-12-27 10:50 | disposition home or self-care (01) | DRG 330 ==
LOC: SURGICAL 07:34 → SURG 07:37 → ICU 13:27 → 4TH 12-26 11:30
PROVIDERS: ADMIT Surgery; ATTEND Surgery
PROC: 0DTL0ZZ Resection of Transverse Colon, Open Approach (ICD-10-PCS; principal; 2016-12-24 10:56)
DX: D12.3 Benign neoplasm of transverse colon (principal); J98.11 Atelectasis; J44.9 Chronic obstructive pulmonary disease, unspecified; F17.210 Nicotine dependence, cigarettes, uncomplicated; F10.20 Alcohol dependence, uncomplicated
CPT/HCPCS: 36415; 71010; 80048; 83735; 84100; 85007; 85025; 85027; 86870; 94640; 94664; 94760

== ENCOUNTER 2017-01-28 13:45 | Outpatient (RCR) | payer BC, OTHER ==
[~2017-01-28 13:45] MED LIST changes: +ACHD5005 PO; +DOCU-143 PO
[2017-01-28 15:09] LABS: BASOPHILS # (AUTO) 0.1 10^3/uL (0.0-0.1); BASOPHILS % (AUTO) 1 % (0-10); EOSINOPHILS # (AUTO) 0.4 10^3/uL (0.0-0.3); EOSINOPHILS % (AUTO) 6 % (0-10); HEMATOCRIT 48 % (40-54); HEMOGLOBIN 16.1 G/DL (13.3-17.7); LYMPHOCYTES # (AUTO) 3.9 X 10^3 (1.0-4.0); LYMPHOCYTES % (AUTO) 57 % (12-44); MEAN CORPUSCULAR HEMOGLOBIN 31 PG (25-34); MEAN CORPUSCULAR HGB CONC 34 G/DL (32-36); MEAN CORPUSCULAR VOLUME 93 FL (80-99); MEAN PLATELET VOLUME 11.1 FL (7.4-10.4); MONOCYTES # (AUTO) 0.7 X 10^3 (0.0-1.0); MONOCYTES % (AUTO) 10 % (0-12); NEUTROPHILS # (AUTO) 1.8 X 10^3 (1.8-7.8); NEUTROPHILS % (AUTO) 26 % (42-75); PLATELET COUNT 259 10^3/uL (130-400); RED BLOOD COUNT 5.19 10^6/uL (4.35-5.85); RED CELL DISTRIBUTION WIDTH 13.6 % (10.0-14.5); WHITE BLOOD COUNT 6.8 10^3/uL (4.3-11.0)
[2017-01-28 15:23] LABS: ALANINE AMINOTRANSFERASE 107 U/L (0-55); ALKALINE PHOSPHATASE 92 U/L (40-136); BILIRUBIN,TOTAL 0.2 MG/DL (0.1-1.0); BUN/CREATININE RATIO 6; CALCIUM 9.6 MG/DL (8.5-10.1); CARBON DIOXIDE 24 MMOL/L (21-32); CHLORIDE 105 MMOL/L (98-107); GFR ESTIMATED > 60; GLUCOSE 113 MG/DL (70-105); SODIUM 140 MMOL/L (135-145)
== END 2017-04-28 | disposition home or self-care (01) ==
LOC: ONC 13:45
PROVIDERS: ATTEND Internal Medicine Hematology & Oncology
DX: C18.4 Malignant neoplasm of transverse colon (principal); F10.20 Alcohol dependence, uncomplicated; B19.20 Unspecified viral hepatitis C without hepatic coma; F17.210 Nicotine dependence, cigarettes, uncomplicated; F12.10 Cannabis abuse, uncomplicated
CPT/HCPCS: 80053; 82378; 85025; 99214

== ENCOUNTER 2017-04-29 14:37 | Outpatient (RCR) | payer BC, OTHER ==
[~2017-04-29 14:37] MED LIST changes: +HYDR-34 PO; -HYDR-3816 PO
[2017-04-29 14:53] LABS: BASOPHILS # (AUTO) 0.1 10^3/uL (0.0-0.1); BASOPHILS % (AUTO) 1 % (0-10); EOSINOPHILS # (AUTO) 0.4 10^3/uL (0.0-0.3); EOSINOPHILS % (AUTO) 5 % (0-10); HEMATOCRIT 47 % (40-54); HEMOGLOBIN 15.8 G/DL (13.3-17.7); LYMPHOCYTES % (AUTO) 37 % (12-44); MEAN CORPUSCULAR HEMOGLOBIN 33 PG (25-34); MEAN CORPUSCULAR HGB CONC 34 G/DL (32-36); MEAN CORPUSCULAR VOLUME 97 FL (80-99); MEAN PLATELET VOLUME 10.1 FL (7.4-10.4); MONOCYTES % (AUTO) 13 % (0-12); NEUTROPHILS # (AUTO) 3.6 X 10^3 (1.8-7.8); NEUTROPHILS % (AUTO) 44 % (42-75); PLATELET COUNT 250 10^3/uL (130-400); RED BLOOD COUNT 4.84 10^6/uL (4.35-5.85); RED CELL DISTRIBUTION WIDTH 13.8 % (10.0-14.5); WHITE BLOOD COUNT 8.1 10^3/uL (4.3-11.0)
[2017-04-29 15:20] LABS: ALANINE AMINOTRANSFERASE 78 U/L (0-55); ALKALINE PHOSPHATASE 80 U/L (40-136); BILIRUBIN,TOTAL 0.3 MG/DL (0.1-1.0); BUN/CREATININE RATIO 12; CALCIUM 9.7 MG/DL (8.5-10.1); CARBON DIOXIDE 30 MMOL/L (21-32); CHLORIDE 101 MMOL/L (98-107); CREATININE SERUM 0.81 MG/DL (0.60-1.30); GFR ESTIMATED > 60; GLUCOSE 99 MG/DL (70-105); POTASSIUM 4.5 MMOL/L (3.6-5.0); SODIUM 140 MMOL/L (135-145); TOTAL PROTEIN 8.4 GM/DL (6.4-8.2)
== END 2017-07-28 | disposition home or self-care (01) ==
LOC: ONC 14:37
PROVIDERS: ATTEND Internal Medicine Hematology & Oncology
DX: C18.4 Malignant neoplasm of transverse colon (principal); F10.20 Alcohol dependence, uncomplicated; B19.20 Unspecified viral hepatitis C without hepatic coma; F17.210 Nicotine dependence, cigarettes, uncomplicated; F12.10 Cannabis abuse, uncomplicated
CPT/HCPCS: 36415; 80053; 82378; 85025; 99213

== ENCOUNTER 2017-12-11 09:54 | Emergency (ER) | payer BC, OTHER ==
[~2017-12-11] VITALS: Ht 190.5 cm; Wt 82.3 kg
[~2017-12-11 09:54] MED LIST changes: -OXYC-197 PO; +OXYC1TAB87 PO
[2017-12-11] MEDS ORDERED: THIAMINE INJECTION 100 MG, FOLIC ACID INJECTION 1 MG, VITAMIN MULTI INJECTION 10 ML, MA... IV STA ×5 (09:56)
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
--- NOTE | 2017-12-11 10:31 | ED Psychosocial ---
General Chief Complaint: Detox Stated Complaint: DETOX Nursing Triage Note: PT STATES DEPRESSION, "I DRINK A LOT," HEP C, TB, PANCREATITIS AND NEEDS HELP. Source: patient Exam Limitations: no limitations History of Present Illness Date Seen by Provider: Dec 11, 2017 Time Seen by Provider: 10:13 Initial Comments The patient presents to the ER by private conveyance with a chief complaint that he is a lifetime alcoholic and he has a history of hepatitis C and pancreatitis and he wants to get off alcohol. He spoke with his doctors at [facility] getting some lab draws done today and decided that today he wants to get help. He's tried quitting before on his own and used Xanax to try and help himself but the shakes and detoxing was too much for him. He procured the Xanax on his own without the help of the doctor. He does smoke marijuana when he can get it he smokes one to 2 packs cigarettes a day and has a distant history in the 80s of using cocaine in an mid used to coat and smoke methamphetamines but has not used it since then. He says now he drinks vodka 3-4 bottles that are 450 mL each every day. He says he's been drinking vodka since he was 8 years old. He's been working at the same place since 1981. He says he has 2 grandchildren that he wants to live for and he wants to get better. He says he's had suicidal thoughts all of his life but he's never had a suicide attempt. When asked if he has a plan he says yes but he's not in a good because he does not have the "cojones." He's never been inpatient psychiatric hospitalization. This is most recently he just uses marijuana and alcohol but occasionally he'll take a Xanax if he can't get alcohol to help take away the detox feeling. He says he wants to stop drinking alcohol and do better with his life. Occasionally he has midepigastric abdominal pain as recently as yesterday but none presently and no nausea or vomiting. He says he drank at least 2 bottles of vodka this morning. Allergies and Home Medications Allergies Coded Allergies: No Known Drug Allergies (Unverified , 11/30/16) Home Medications Cephalexin 500 Mg Capsule, 500 MG PO TID Prescribed by: PAULETTE ADAM on 12/27/16 0930 Docusate Sodium 100 Mg Capsule, 100 MG PO BID Prescribed by: PAULETTE ADAM on 12/26/16 171 Hydrocodone Bit/Acetaminophen 1 Each Tablet, 1 TAB PO Q4H PRN for PAIN Prescribed by: PAULETTE ADAM on 12/26/161717 Patient Home Medication List Home Medication List Reviewed: Yes Review of Systems Constitutional: No chills, No diaphoresis EENTM: No ear discharge, No ear pain Respiratory: cough; No phlegm, No short of breath, No wheezing Cardiovascular: No chest pain, No palpitations Gastrointestinal: abdominal pain (occ epigastric); No constipation, No diarrhea , No nausea, No vomiting Genitourinary: No discharge, No dysuria Musculoskeletal: No back pain, No joint pain Skin: No pruritus, No rash Past Uapfjhf-Qoreeh-Iqrrbh Hx Patient Social History Alcohol Use: Regular Use Number of Drinks Today: FF Alcohol Beverage of Choice: Vodka Recreational Drug Use: Yes (HX OF SPEED AND COCAINE) Drug of Choice: MARIJUANA Smoking Status: Current Everyday Smoker Type Used: Cigarettes 2nd Hand Smoke Exposure: Yes Recent Foreign Travel: No Contact w/Someone Who Travel: No Recent Infectious Disease Expo: No Recent Hopitalizations: No Immunizations Up To Date Tetanus Booster (TDap): Less than 5yrs Seasonal Allergies Seasonal Allergies: No Past Medical History Surgeries: Yes (wisdom teeth, hernia repair, LEFT FINGER) Orthopedic Respiratory: No Asthma, Emphysema Cardiac: No Neurological: No Reproductive Disorders: No Sexually Transmitted Disease: No HIV/AIDS: No Genitourinary: No Gastrointestinal: Yes (HX PANCREATITIS, HEP C) Chronic Diarrhea, Hepatitis Musculoskeletal: Yes Degenerate Disk Disease Endocrine: No HEENT: No Loss of Vision: Bilateral Hearing Impairment: Denies Cancer: No Psychosocial: Yes (alcohol dependence with heavily daily use) Integumentary: No Blood Disorders: No Adverse Reaction/Blood Tranf: No Family Medical History BRAIN CANCER G8 SISTER CROHN'S DISEASE G8 BROTHER LUNG CANCER 19 FATHER SEIZURE DISORDER G8 BROTHER Physical Exam Vital Signs - First Documented 12/11/17 10:04 Temp 98.3 Pulse 114 Resp 22 B/P (MAP) 139/96 (110) Pulse Ox 98 O2 Delivery Room Air Capillary Refill : Less Than 3 Seconds Height, Weight, BMI Height: 6'3.00" Weight: 181lbs. 6.0oz. [id number]; 23.2 BMI Method:Stated General Appearance: WD/WN, no apparent distress HEENT: PERRL/EOMI, normal ENT inspection, TMs normal; No pharynx normal Neck: non-tender, full range of motion, normal inspection Respiratory: chest non-tender, lungs clear, normal breath sounds, no respiratory distress, no accessory muscle use Cardiovascular: normal peripheral pulses, regular rate, rhythm, no edema Peripheral Pulses: 2+ Radial Pulses (R), 2+ Radial Pulses (L) Gastrointestinal: normal bowel sounds, non tender, soft Extremities: normal range of motion, non-tender, normal capillary refill Neurologic/Psychiatric: alert, oriented x 3, other (Tearful at times but bright affect.) Appearance/Memory: appropriate insight, no memory impairment; No denies illness ; disheveled Behavior/Eye Contact: cooperative, good eye contact, normal speech Thoughts/Hallucinations: normal thought pattern, no apparent hallucination Skin: normal color, warm/dry Progress/Results/Core Measures Results/Orders Lab Results Laboratory Tests Test 12/11/17 10:30 12/11/17 11:30 Range/Units White Blood Count 6.4 4.3-11.0 10^3/uL Red Blood Count 4.59 4.35-5.85 10^6/uL Hemoglobin 15.1 13.3-17.7 G/DL Hematocrit 44 40-54 % Mean Corpuscular Volume 97 80-99 FL Mean Corpuscular Hemoglobin 33 25-34 PG Mean Corpuscular Hemoglobin Concent 34 32-36 G/DL Red Cell Distribution Width 13.9 10.0-14.5 % Platelet Count 216 130-400 10^3/uL Mean Platelet Volume 10.0 7.4-10.4 FL Neutrophils (%) (Auto) 35 L 42-75 % Lymphocytes (%) (Auto) 46 H 12-44 % Monocytes (%) (Auto) 15 H 0-12 % Eosinophils (%) (Auto) 3 0-10 % Basophils (%) (Auto) 1 0-10 % Neutrophils # (Auto) 2.2 1.8-7.8 X 10^3 Lymphocytes # (Auto) 2.9 1.0-4.0 X 10^3 Monocytes # (Auto) 1.0 0.0-1.0 X 10^3 Eosinophils # (Auto) 0.2 0.0-0.3 10^3/uL Basophils # (Auto) 0.1 0.0-0.1 10^3/uL Sodium Level 137 135-145 MMOL/L Potassium Level 4.1 3.6-5.0 MMOL/L Chloride Level 105 98-107 MMOL/L Carbon Dioxide Level 22 21-32 MMOL/L Anion Gap 10 5-14 MMOL/L Blood Urea Nitrogen 10 7-18 MG/DL Creatinine 0.82 0.60-1.30 MG/DL Estimat Glomerular Filtration Rate > 60 BUN/Creatinine Ratio 12 Glucose Level 105 70-105 MG/DL Calcium Level 9.6 8.5-10.1 MG/DL Corrected Calcium 9.4 8.5-10.1 MG/DL Total Bilirubin 0.3 0.1-1.0 MG/DL Aspartate Amino Transf (AST/SGOT) 143 H 5-34 U/L Alanine Aminotransferase (ALT/SGPT) 139 H 0-55 U/L Alkaline Phosphatase 76 40-136 U/L Total Protein 8.6 H 6.4-8.2 GM/DL Albumin 4.3 3.2-4.5 GM/DL Lipase 49 8-78 U/L Salicylates Level < 5.0 L 5.0-20.0 MG/DL Acetaminophen Level < 10 L 10-30 UG/ML Serum Alcohol 255 H <10 MG/DL Urine Color YELLOW Urine Clarity CLEAR Urine pH 6 5-9 Urine Specific [place] 1.010 L 1.016-1.022 Urine Protein NEGATIVE NEGATIVE Urine Glucose (UA) NEGATIVE NEGATIVE Urine Ketones NEGATIVE NEGATIVE Urine Nitrite NEGATIVE NEGATIVE Urine Bilirubin NEGATIVE NEGATIVE Urine Urobilinogen NORMAL NORMAL MG/DL Urine Leukocyte Esterase NEGATIVE NEGATIVE Urine RBC (Auto) NEGATIVE NEGATIVE Urine RBC NONE /HPF Urine WBC NONE /HPF Urine Squamous Epithelial Cells RARE /HPF Urine Crystals NONE /LPF Urine Bacteria NEGATIVE /HPF Urine Casts NONE /LPF Urine Mucus NEGATIVE /LPF Urine Culture Indicated NO Urine Opiates Screen NEGATIVE NEGATIVE Urine Oxycodone Screen NEGATIVE NEGATIVE Urine Methadone Screen NEGATIVE NEGATIVE Urine Propoxyphene Screen NEGATIVE NEGATIVE Urine Barbiturates Screen NEGATIVE NEGATIVE Ur Tricyclic Antidepressants Screen NEGATIVE NEGATIVE Urine Phencyclidine Screen NEGATIVE NEGATIVE Urine Amphetamines Screen NEGATIVE NEGATIVE Urine Methamphetamines Screen NEGATIVE NEGATIVE Urine Benzodiazepines Screen POSITIVE H NEGATIVE Urine Cocaine Screen NEGATIVE NEGATIVE Urine Cannabinoids Screen POSITIVE H NEGATIVE My Orders Orders - LINDSAY BOLIVAR Ua Culture If Indicated (12/11/17 09:56) Cbc With Automated Diff (12/11/17 09:56) Comprehensive Metabolic Panel (12/11/17 09:56) Alcohol (12/11/17 09:56) Drug Screen Stat (Urine) (12/11/17 09:56) Acetaminophen (12/11/17 09:56) Salicylate (12/11/17 09:56) Ekg Tracing (12/11/17 09:56) Saline Lock/Iv-Start (12/11/17 09:56) Monitor-Rhythm Ecg Trace Only (12/11/17 09:56) Saline Lock/Iv-Start (12/11/17 09:56) Thiamine Injection (Vitamin B-1 Injectio (12/11/17 09:56) Lipase (12/11/17 10:21) Vital Signs/I&O 12/11/17 10:04 Temp 98.3 Pulse 114 Resp 22 B/P (MAP) 139/96 (110) Pulse Ox 98 O2 Delivery Room Air Blood Pressure Mean: 110 Progress Progress Note : Time: 10:36 Progress Note Patient wants to do detox and he seems reasonable to; we will just check a lipase in addition to his other labs and EKG. We're going to give him a banana bag with potassium. After speaking to the patient for some time feel he is decisional and is not suicidal at this time. Initial ECG Impression Date: Dec 11, 2017 Initial ECG Impression Time: 10:40 Initial ECG Rate: 88 Initial ECG Rhythm: Normal Sinus Initial ECG Intervals: Normal Initial ECG Impression: Normal Initial ECG Comparisson: No Previous ECG Available Comment No significant ST elevation or depression. Consults : Consulting Physician: LUL LANIER MD Consults Notes Discussed the case with the on-call primary care provider and she has set him up at 0940 in the morning with Dr. Alonzo for outpatient alcohol detox. The patient's in agreement with this plan. We have slow down his banana bag because he was having some burning sensation at the site of the IV. He still got about 500 cc left so we are going to let him finish those fluids. Departure Impression Primary Impression: Alcoholism Disposition: 01 HOME, SELF-CARE Condition: Stable Departure-Patient Inst. Decision time for Depature: 13:50 Referrals: [facility] (PCP) Primary Care Physician JOCELINE BOYD (Family) Primary Care Physician Patient Instructions: Alcohol Abuse and Alcoholism (DC) Add. Discharge Instructions: Follow-up with Dr. Alonzo at 0940 in the morning At [facility]. All discharge instructions reviewed with patient and/or family. Voiced understanding. Copy Copies To 1: DOMINIC VARGAS TITUS J Dec 11, 2017 10:31
[2017-12-11 10:41] LABS: BASOPHILS # (AUTO) 0.1 10^3/uL (0.0-0.1); BASOPHILS % (AUTO) 1 % (0-10); EOSINOPHILS # (AUTO) 0.2 10^3/uL (0.0-0.3); EOSINOPHILS % (AUTO) 3 % (0-10); HEMATOCRIT 44 % (40-54); HEMOGLOBIN 15.1 G/DL (13.3-17.7); LYMPHOCYTES # (AUTO) 2.9 X 10^3 (1.0-4.0); LYMPHOCYTES % (AUTO) 46 % (12-44); MEAN CORPUSCULAR HEMOGLOBIN 33 PG (25-34); MEAN CORPUSCULAR HGB CONC 34 G/DL (32-36); MEAN CORPUSCULAR VOLUME 97 FL (80-99); MONOCYTES % (AUTO) 15 % (0-12); NEUTROPHILS # (AUTO) 2.2 X 10^3 (1.8-7.8); NEUTROPHILS % (AUTO) 35 % (42-75); PLATELET COUNT 216 10^3/uL (130-400); RED BLOOD COUNT 4.59 10^6/uL (4.35-5.85); RED CELL DISTRIBUTION WIDTH 13.9 % (10.0-14.5); WHITE BLOOD COUNT 6.4 10^3/uL (4.3-11.0)
[2017-12-11 11:04] LABS: ALANINE AMINOTRANSFERASE 139 U/L (0-55); ALBUMIN 4.3 GM/DL (3.2-4.5); ALKALINE PHOSPHATASE 76 U/L (40-136); BILIRUBIN,TOTAL 0.3 MG/DL (0.1-1.0); BUN/CREATININE RATIO 12; CALCIUM 9.6 MG/DL (8.5-10.1); CARBON DIOXIDE 22 MMOL/L (21-32); CHLORIDE 105 MMOL/L (98-107); CREATININE SERUM 0.82 MG/DL (0.60-1.30); GFR ESTIMATED > 60; GLUCOSE 105 MG/DL (70-105); LIPASE 49 U/L (8-78); POTASSIUM 4.1 MMOL/L (3.6-5.0); SALICYLATE < 5.0 MG/DL (5.0-20.0); SODIUM 137 MMOL/L (135-145); TOTAL PROTEIN 8.6 GM/DL (6.4-8.2)
[2017-12-11 11:05] LABS: ACETAMINOPHEN < 10 UG/ML (10-30)
[2017-12-11 11:42] LABS: BILIRUBIN,URINE NEGATIVE (NEGATIVE); CLARITY,URINE CLEAR; COLOR,URINE YELLOW; GLUCOSE, URINE (UA) NEGATIVE (NEGATIVE); KETONES,URINE NEGATIVE (NEGATIVE); LEUKOCYTE ESTERASE ,URINE NEGATIVE (NEGATIVE); NITRITE,URINE NEGATIVE (NEGATIVE); PH,URINE 6 (5-9); PROTEIN,URINE NEGATIVE (NEGATIVE); UROBILINOGEN,URINE NORMAL (NORMAL)
[2017-12-11 11:57] LABS: BACTERIA,URINE NEGATIVE /HPF; SQUAMOUS EPITHELIAL CELL,UR RARE /HPF
[2017-12-11 11:58] LABS: AMPHETAMINE SCREEN, URINE NEGATIVE (NEGATIVE); BARBITURATE SCREEN URINE NEGATIVE (NEGATIVE); BENZODIAZEPINES SCREEN URINE POSITIVE (NEGATIVE); CANNABINOID SCREEN, URINE POSITIVE (NEGATIVE); COCAINE SCREEN URINE NEGATIVE (NEGATIVE); METHADONE STAT NEGATIVE (NEGATIVE); METHAMPHETAMINE SCREEN URINE S NEGATIVE (NEGATIVE); OPIATE SCREEN URINE NEGATIVE (NEGATIVE); OXYCODONE STAT NEGATIVE (NEGATIVE); PROPOXYPHENE STAT NEGATIVE (NEGATIVE); TRICYCLIC ANTIDEPRESSANTS SCRE NEGATIVE (NEGATIVE)
[2017-12-11 14:00] VITALS: BP 109/76
== END 2017-12-11 14:00 | disposition home or self-care (01) ==
LOC: ER 09:54 → EDUNIT# 09:54 → ER 14:00
DX: F10.20 Alcohol dependence, uncomplicated (principal); J43.9 Emphysema, unspecified; B19.20 Unspecified viral hepatitis C without hepatic coma; F12.10 Cannabis abuse, uncomplicated; F17.210 Nicotine dependence, cigarettes, uncomplicated; Z87.19 Personal history of other diseases of the digestive system; Z80.1 Family history of malignant neoplasm of trachea, bronchus and lung; Z80.8 Family history of malignant neoplasm of other organs or systems
CPT/HCPCS: 36415; 80053; 80306; 80320; 80329; 81000; 83690; 85025; 93005; 93041; 96365; 96366

== ENCOUNTER 2018-01-01 15:19 | Outpatient (CLI) | payer BC ==
[~2018-01-01] VITALS: Ht 190.5 cm; Wt 88.5 kg
== END 2018-01-01 15:20 | disposition home or self-care (01) ==
LOC: PREOP 15:19
PROVIDERS: ATTEND Surgery
DX: Z01.818 Encounter for other preprocedural examination (principal)

== ENCOUNTER 2018-01-07 07:20 | Day surgery (SDC) | payer BC ==
[~2018-01-07] VITALS: Ht 190.5 cm; Wt 88.5 kg
[2018-01-07] MEDS ORDERED: PROPOFOL INJECTION 50 ML IV ONE (07:33)
[2018-01-07] MEDS ORDERED: MIDAZOLAM 2 MG/2 ML (VERSED) VIAL ONE ×2 (07:33)
[2018-01-07] MEDS ORDERED: LACTATED RINGERS 1,000 ML IV STA (07:43)
[2018-01-07 07:59] VITALS: BP 119/92
--- NOTE | 2018-01-07 08:03 | Progress Note-Pre Operative ---
Pre-Operative Progress Note H&P Reviewed The H&P was reviewed, patient examined and no changes noted. Date Seen by Provider: Jan 07, 2018 Time Seen by Provider: 08:01 Date H&P Reviewed: Jan 07, 2018 Time H&P Reviewed: 08:01 Pre-Operative Diagnosis: history colon cancer PAULETTE ADAM DO Jan 07, 2018 08:03
[2018-01-07] MEDS ORDERED: LACTATED RINGERS 1,000 ML IV ONE (08:35)
--- NOTE | 2018-01-07 09:05 | Progress Note-Post Operative ---
Post-Operative Progess Note Surgeon (s)/Quality Systems Manager (s) Surgeon PAULETTE ADAM DO Quality Systems Manager: na Pre-Operative Diagnosis history colon cancer Post-Operative Diagnosis ascending colon polyp Procedure & Operative Findings Date of Procedure 01/07/18 Procedure Performed/Findings colonoscopy with hot bx polypectomy ascending colon Anesthesia Type per power saw operator Estimated Blood Loss Estimated blood loss (mL): none Specimens/Packing Specimens Removed ascending colon polyp PAULETTE ADAM DO Jan 07, 2018 09:05
--- NOTE | 2018-01-07 09:08 | Discharge Inst-Simple/Standard ---
Discharge Inst-Standard Patient Instructions/Follow Up Plan of Care/Instructions/FU: 2 weeks Jim Activity as Tolerated: Yes Discharge Diet: Regular Diet PAULETTE ADAM DO Jan 07, 2018 09:08
[2018-01-07] MEDS ORDERED: LACTATED RINGERS 1,000 ML IV SCH (09:15)
[2018-01-07 09:25] VITALS: BP 124/88
[2018-01-07 09:40] VITALS: BP 126/100
[2018-01-07 09:45] VITALS: BP 126/100
--- NOTE | 2018-01-07 11:22 | Anesthesia-General Post-Op ---
MAC Patient Condition Mental Status/LOC: Same as Preop Cardiovascular: Satisfactory Nausea/Vomiting: Absent Respiratory: Satisfactory Pain: Controlled Complications: Absent Post Op Complications Complications None Follow Up Care/Instructions Patient Instructions None needed. Anesthesiology Discharge Order Discharge Order Patient is doing well, no complaints, stable vital signs, no apparent adverse anesthesia problems. No complications reported per nursing. TIFFANI DA SILVA CRNA Jan 07, 2018 11:22
--- NOTE | 2018-01-07 13:19 | OPERATIVE REPORT ---
DATE OF SERVICE: 01/07/2018 PREOPERATIVE DIAGNOSIS: History of colon cancer. POSTOPERATIVE DIAGNOSIS: Colon polyp ascending colon. PROCEDURES: Colonoscopy with hot biopsy polypectomy of ascending colon polyp. SURGEON: Paulette Fernandez DO. ANESTHESIA: Per INSURANCE COMMISSIONER. ESTIMATED BLOOD LOSS: None. COMPLICATIONS: None. INDICATIONS: The patient is a 52-year-old male with a history of colon cancer. He understands risks and benefits of the procedure and wished to proceed with procedure. Consent was signed on the chart. DESCRIPTION OF PROCEDURE: The patient was taken to the endoscopy suite, placed in the left lateral recumbent position. Timeout was performed. Digital rectal exam was performed. There were no palpable polyps, masses or ulcerations. The scope was inserted in the rectum and advanced all the way to the cecum with minimal difficulty. Prep was adequate. Scope was then slowly retracted back. There were no polyps, masses or ulcerations in the cecum. Within the ascending colon, a small polyp was present, which hot biopsy polypectomy was performed. Scope was continuously retracted back. There were no other polyps, masses or ulcerations in the remainder of the ascending colon, transverse, descending and sigmoid colon. Once in the rectum, scope was retroflexed noting no other pathology. Scope was returned to its normal position, slowly withdrawn until completely removed. The patient tolerated the procedure well without any complications and taken to the recovery room in stable condition. RECOMMENDATIONS: The patient will need repeat colonoscopy in 3 years. If he has any problems prior to that, he should be reevaluated at that time. Job ID: [id number] DocumentID: [id number] Dictated Date: 01/07/2018 09:11:31 Roller Man Date: 01/07/2018 13:18:25 Dictated By: PAULETTE FERNANDEZ DO
== END 2018-01-07 09:45 | disposition home or self-care (01) ==
LOC: ENDO 07:20
PROVIDERS: ATTEND Surgery
DX: Z12.11 Encounter for screening for malignant neoplasm of colon (principal); D12.2 Benign neoplasm of ascending colon; Z85.038 Personal history of other malignant neoplasm of large intestine; J44.9 Chronic obstructive pulmonary disease, unspecified; J45.909 Unspecified asthma, uncomplicated; B19.20 Unspecified viral hepatitis C without hepatic coma; F17.210 Nicotine dependence, cigarettes, uncomplicated; F10.20 Alcohol dependence, uncomplicated

== ENCOUNTER 2018-05-19 12:14 | Inpatient (IN) | payer BC, OTHER ==
[~2018-05-19] VITALS: Ht 190.5 cm; Wt 87.2 kg
[2018-05-19] MEDS ORDERED: PANTOPRAZOLE 40 MG (PROTONIX) VIAL IV ONE (12:30)
[2018-05-19] MEDS ORDERED: fentaNYL INJECTION 100 MCG/2 ML AMP IVP ONE (12:30)
[2018-05-19] MEDS ORDERED: LACTATED RINGERS 1,000 ML IV SCH (12:30)
--- NOTE | 2018-05-19 12:33 | ED Abdominal Pain ---
General Chief Complaint: Abdominal/GI Problems Stated Complaint: SEVERE ABD PAIN Source of Information: Patient Exam Limitations: No Limitations History of Present Illness Date Seen by Provider: May 19, 2018 Time Seen by Provider: 12:32 Initial Comments To ER for private vehicle from home with reports of epigastric abdominal pain that awakened him from sleep at 4 AM this morning. History of pancreatitis and alcoholism. States that he has been drinking. Timing/Duration: 1-2 Days Severity/Quality: Moderate Location: Epigastric Radiation: No Radiation Activities at Onset: None Associated Symptoms: Nausea/Vomiting Allergies and Home Medications Allergies Coded Allergies: No Known Drug Allergies (Unverified , 11/30/16) Home Medications No Active Prescriptions or Reported Meds Patient Home Medication List Home Medication List Reviewed: Yes Review of Systems Review of Systems Constitutional: see HPI EENTM: No Symptoms Reported Respiratory: No Symptoms Reported Cardiovascular: No Symptoms Reported Gastrointestinal: See HPI, Abdominal Pain, Nausea Genitourinary: No Symptoms Reported Musculoskeletal: no symptoms reported Skin: no symptoms reported Psychiatric/Neurological: No Symptoms Reported Endocrine: No Symptoms Reported Past Fvvydhl-Suzteu-Lvpacz Hx Patient Social History Alcohol Beverage of Choice: Vodka Drug of Choice: MARIJUANA Type Used: Cigarettes 2nd Hand Smoke Exposure: Yes Recent Foreign Travel: No Contact w/Someone Who Travel: No Recent Hopitalizations: No Immunizations Up To Date Tetanus Booster (TDap): Less than 5yrs Seasonal Allergies Seasonal Allergies: No Past Medical History Surgeries: Yes (wisdom teeth, hernia repair, LEFT FINGER) Orthopedic Respiratory: No Asthma, Emphysema Cardiac: No Neurological: No Reproductive Disorders: No Sexually Transmitted Disease: No HIV/AIDS: No Genitourinary: No Gastrointestinal: Yes (HX PANCREATITIS, HEP C) Chronic Diarrhea, Hepatitis Musculoskeletal: Yes Degenerate Disk Disease Endocrine: No HEENT: No Loss of Vision: Bilateral Hearing Impairment: Denies Cancer: No Colon What Type of Treatment Did You: Surgical Intervention Psychosocial: Yes (alcohol dependence with heavily daily use) Integumentary: No Blood Disorders: No Adverse Reaction/Blood Tranf: No Family Medical History BRAIN CANCER G8 SISTER CROHN'S DISEASE G8 BROTHER LUNG CANCER 19 FATHER SEIZURE DISORDER G8 BROTHER Physical Exam Vital Signs Vital Signs - First Documented 05/19/18 12:29 Temp 95.8 Pulse 92 Resp 18 B/P (MAP) 185/120 (141) Pulse Ox 98 Capillary Refill : Height/Weight/BMI Height: 6'3.00" Weight: 195lbs. 0.0oz. 88.549254dx; 24.4 BMI Method:Stated General Appearance: WD/WN, mild distress HEENT: PERRL/EOMI, normal ENT inspection Respiratory: no respiratory distress, no accessory muscle use Cardiovascular: regular rate, rhythm, no murmur Gastrointestinal: normal bowel sounds, soft, tenderness (epigastric) Extremities: normal range of motion, non-tender Neurologic/Psychiatric: alert, normal mood/affect, oriented x 3 Skin: normal color, warm/dry Progress/Results/Core Measures Results/Orders Lab Results Laboratory Tests Test 05/19/18 12:20 05/19/18 14:05 Range/Units White Blood Count 7.7 4.3-11.0 10^3/uL Red Blood Count 5.05 4.35-5.85 10^6/uL Hemoglobin 17.0 13.3-17.7 G/DL Hematocrit 51 40-54 % Mean Corpuscular Volume 100 H 80-99 FL Mean Corpuscular Hemoglobin 34 25-34 PG Mean Corpuscular Hemoglobin Concent 34 32-36 G/DL Red Cell Distribution Width 14.5 10.0-14.5 % Platelet Count 216 130-400 10^3/uL Mean Platelet Volume 9.9 7.4-10.4 FL Neutrophils (%) (Auto) 68 42-75 % Lymphocytes (%) (Auto) 20 12-44 % Monocytes (%) (Auto) 11 0-12 % Eosinophils (%) (Auto) 0 0-10 % Basophils (%) (Auto) 1 0-10 % Neutrophils # (Auto) 5.2 1.8-7.8 X 10^3 Lymphocytes # (Auto) 1.6 1.0-4.0 X 10^3 Monocytes # (Auto) 0.9 0.0-1.0 X 10^3 Eosinophils # (Auto) 0.0 0.0-0.3 10^3/uL Basophils # (Auto) 0.0 0.0-0.1 10^3/uL Sodium Level 138 135-145 MMOL/L Potassium Level 4.0 3.6-5.0 MMOL/L Chloride Level 103 98-107 MMOL/L Carbon Dioxide Level 24 21-32 MMOL/L Anion Gap 11 5-14 MMOL/L Blood Urea Nitrogen 7 7-18 MG/DL Creatinine 0.80 0.60-1.30 MG/DL Estimat Glomerular Filtration Rate > 60 BUN/Creatinine Ratio 9 Glucose Level 134 H 70-105 MG/DL Calcium Level 9.5 8.5-10.1 MG/DL Corrected Calcium 9.2 8.5-10.1 MG/DL Magnesium Level 1.7 L 1.8-2.4 MG/DL Total Bilirubin 0.4 0.1-1.0 MG/DL Aspartate Amino Transf (AST/SGOT) 125 H 5-34 U/L Alanine Aminotransferase (ALT/SGPT) 130 H 0-55 U/L Alkaline Phosphatase 82 40-136 U/L Lactate Dehydrogenase 209 125-220 U/L Total Protein 8.9 H 6.4-8.2 GM/DL Albumin 4.4 3.2-4.5 GM/DL Amylase Level 1272 H 25-125 U/L Lipase 3034 H 8-78 U/L Serum Alcohol 116 H <10 MG/DL Urine Color YELLOW Urine Clarity CLEAR Urine pH 6.5 5-9 Urine Specific [place] 1.010 L 1.016-1.022 Urine Protein 2+ H NEGATIVE Urine Glucose (UA) NEGATIVE NEGATIVE Urine Ketones NEGATIVE NEGATIVE Urine Nitrite NEGATIVE NEGATIVE Urine Bilirubin NEGATIVE NEGATIVE Urine Urobilinogen NORMAL NORMAL MG/DL Urine Leukocyte Esterase NEGATIVE NEGATIVE Urine RBC (Auto) NEGATIVE NEGATIVE Urine RBC NONE /HPF Urine WBC NONE /HPF Urine Squamous Epithelial Cells NONE /HPF Urine Crystals NONE /LPF Urine Bacteria NEGATIVE /HPF Urine Casts NONE /LPF Urine Mucus NEGATIVE /LPF Urine Culture Indicated NO Urine Opiates Screen POSITIVE H NEGATIVE Urine Oxycodone Screen NEGATIVE NEGATIVE Urine Methadone Screen NEGATIVE NEGATIVE Urine Propoxyphene Screen NEGATIVE NEGATIVE Urine Barbiturates Screen NEGATIVE NEGATIVE Ur Tricyclic Antidepressants Screen NEGATIVE NEGATIVE Urine Phencyclidine Screen NEGATIVE NEGATIVE Urine Amphetamines Screen NEGATIVE NEGATIVE Urine Methamphetamines Screen NEGATIVE NEGATIVE Urine Benzodiazepines Screen POSITIVE H NEGATIVE Urine Cocaine Screen NEGATIVE NEGATIVE Urine Cannabinoids Screen POSITIVE H NEGATIVE My Orders Orders - AFSANEH LIMA NIPPING MACHINE OPERATOR Cbc With Automated Diff (05/19/18 12:27) Comprehensive Metabolic Panel (05/19/18 12:27) Lipase (05/19/18 12:27) Amylase (05/19/18 12:27) LDH (05/19/18 12:27) Iv Heplock-Insert (Order) (05/19/18 12:27) Ct Abdomen/Pelvis W (05/19/18 12:27) Lactated Ringers (Lr 1000 Ml Iv Solution (05/19/18 12:30) Pantoprazole Injection (Protonix Injecti (05/19/18 12:30) Fentanyl Injection (Sublimaze Injection (05/19/18 12:30) Alcohol (05/19/18 12:29) Magnesium (05/19/18 12:29) Drug Screen Stat (Urine) (05/19/18 12:29) Ua Culture If Indicated (05/19/18 12:29) Labetalol Injection (Normodyne Injection (05/19/18 12:45) Iohexol Injection (Omnipaque 350 Mg/Ml 1 (05/19/18 13:15) Contrast Received (Contrast Received) (05/19/18 13:15) Ns (Ivpb) (Sodium Chloride 0.9% Ivpb Bag (05/19/18 13:15) Us Gallbladder 62515 (05/19/18 13:39) Labetalol Injection (Normodyne Injection (05/19/18 14:00) Hydromorphone Injection (Dilaudid Inject (05/19/18 14:30) Medications Given in ED Current Medications Medications Dose Ordered Sig/Urszula Route Start Time Stop Time Status Last Admin Dose Admin Fentanyl Citrate 75 mcg ONCE ONCE IVP 05/19/18 12:30 05/19/18 12:31 DC 05/19/18 12:38 75 MCG Hydromorphone HCl 1 mg ONCE ONCE IV 05/19/18 14:30 05/19/18 14:31 DC 05/19/18 14:20 1 MG Iohexol 100 ml ONCE ONCE IV 05/19/18 13:15 05/19/18 13:17 DC 05/19/18 13:04 100 ML Labetalol HCl 10 mg ONCE ONCE IV 05/19/18 12:45 05/19/18 12:46 DC 05/19/18 12:37 10 MG Labetalol HCl 20 mg ONCE ONCE IV 05/19/18 14:00 05/19/18 14:01 DC 05/19/18 14:15 20 MG Pantoprazole 40 mg ONCE ONCE IV 05/19/18 12:30 05/19/18 12:31 DC 05/19/18 12:38 40 MG Sodium Chloride 100 ml ONCE ONCE IV 05/19/18 13:15 05/19/18 13:17 DC 05/19/18 13:04 80 ML Vital Signs/I&O 05/19/18 12:29 Temp 95.8 Pulse 92 Resp 18 B/P (MAP) 185/120 (141) Pulse Ox 98 Diagnostic Imaging Diagonstic Imaging: CT, Ultrasound Comments NAME: JULIO CANALES [facility] REC#: [id number] PT STATUS: REG ER : 1965 PHYSICIAN: AFSANEH LIMA APRN ADMIT DATE: 05/19/18/ER Draft Date of Exam:05/19/18 CT ABDOMEN/PELVIS W PROCEDURE: CT abdomen and pelvis with contrast. TECHNIQUE: Multiple contiguous axial images were obtained through the abdomen and pelvis after administration of intravenous contrast. INDICATION: Upper abdominal pain with nausea and vomiting. COMPARISON: Correlation is made with prior CT from 05/31/2016. FINDINGS: There is some dependent atelectasis in the lung bases. Generalized low density throughout the liver is noted consistent with hepatic steatosis. No discrete liver mass is detected. The gallbladder is unremarkable. No biliary ductal dilatation is seen. There is significant inflammatory stranding surrounding the pancreas. The pancreas does show enhancement, without evidence of necrosis. There are some calcifications in the uncinate consistent with prior episodes of pancreatitis. Possibility of a calculus located in the distal common duct cannot be entirely excluded. Common duct is not well visualized on CT. No well-formed fluid collection is seen. Fluid does extend into the right and left aspects of the retroperitoneum. Splenic vein appears to be patent. The spleen is unremarkable. No adrenal mass is detected. The kidneys are unremarkable. Aorta is non-aneurysmal. There are postsurgical changes in the region of the transverse colon. There is moderate stool in the colon. Small bowel loops are normal caliber. There is a small amount of free fluid in the pelvis. The bladder is unremarkable. IMPRESSION: 1. Findings consistent with acute pancreatitis. Correlation with laboratory studies is recommended. No definite pseudocyst formation or evidence of pancreatic necrosis is identified. There are some calcifications in the region of the pancreatic head and uncinate. The more laterally located calculus does lie adjacent to the duodenal wall and the possibility of a calculus near the ampulla cannot be entirely excluded. There is no evidence of biliary ductal dilatation. 2. Hepatic steatosis. Dictated on workstation # [id number] Dict: 05/19/18 1322 Trans: 05/19/18 1333 [id number] Interpreted by: VALE VERDE MD Electronically signed by: Departure Communication (Admissions) Time/Spoke to Admitting Phy: 15:29 1829-discussed 1529-I discussed the case with Dr. Chacon. She agrees to admit. 1249- oxygen saturation dropped to 84% after administration of 75 g of fentanyl. He was given supplemental oxygen 2 L. He awakens to assure me that he wasn't actually asleep and also "didn't have that much alcohol" 1529-resting in bed comfortably. He was given 1 mg of Dilaudid IV. This better controlled his pain. Blood pressure 168/115. Heart rate 80s. Impression Primary Impression: Acute pancreatitis Qualified Codes: K85.20 - Alcohol induced acute pancreatitis without necrosis or infection Additional Impression: Alcoholism Disposition: 09 ADMITTED INPATIENT Condition: Stable Admissions Decision to Admit Reason: Admit from ER (General) Decision to Admit/Date: May 19, 2018 Time/Decision to Admit Time: 13:19 Departure-Patient Inst. Decision time for Depature: 15:28 Referrals: [facility] (PCP/Family) Primary Care Physician Scripts No Active Prescriptions or Reported Meds AFSANEH LIMA APRN May 19, 2018 12:33
[2018-05-19 12:36] LABS: BASOPHILS % (AUTO) 1 % (0-10); EOSINOPHILS % (AUTO) 0 % (0-10); HEMATOCRIT 51 % (40-54); LYMPHOCYTES # (AUTO) 1.6 X 10^3 (1.0-4.0); LYMPHOCYTES % (AUTO) 20 % (12-44); MEAN CORPUSCULAR HEMOGLOBIN 34 PG (25-34); MEAN CORPUSCULAR HGB CONC 34 G/DL (32-36); MEAN CORPUSCULAR VOLUME 100 FL (80-99); MEAN PLATELET VOLUME 9.9 FL (7.4-10.4); MONOCYTES # (AUTO) 0.9 X 10^3 (0.0-1.0); MONOCYTES % (AUTO) 11 % (0-12); NEUTROPHILS # (AUTO) 5.2 X 10^3 (1.8-7.8); NEUTROPHILS % (AUTO) 68 % (42-75); PLATELET COUNT 216 10^3/uL (130-400); RED CELL DISTRIBUTION WIDTH 14.5 % (10.0-14.5); WHITE BLOOD COUNT 7.7 10^3/uL (4.3-11.0)
[2018-05-19] MEDS ORDERED: LABETALOL HCL 20 MG/4 ML VIAL IV ONE ×2 (12:45→14:00)
[2018-05-19 12:58] LABS: ALANINE AMINOTRANSFERASE 130 U/L (0-55); ALBUMIN 4.4 GM/DL (3.2-4.5); ALKALINE PHOSPHATASE 82 U/L (40-136); AMYLASE 1272 U/L (25-125); BILIRUBIN,TOTAL 0.4 MG/DL (0.1-1.0); BUN/CREATININE RATIO 9; CALCIUM 9.5 MG/DL (8.5-10.1); CARBON DIOXIDE 24 MMOL/L (21-32); CHLORIDE 103 MMOL/L (98-107); GFR ESTIMATED > 60; GLUCOSE 134 MG/DL (70-105); MAGNESIUM 1.7 MG/DL (1.8-2.4); SODIUM 138 MMOL/L (135-145); TOTAL PROTEIN 8.9 GM/DL (6.4-8.2)
[2018-05-19] MEDS ORDERED: IOHEXOL 350 MG/ML 100 ML (OMNIPAQUE 350) VIAL IV ONE (13:15)
[2018-05-19] MEDS ORDERED: RECEIVED CONTRAST (Hold Metformin) IV SCH (13:15)
[2018-05-19] MEDS ORDERED: NS 100 ML (IVPB) BAG IV ONE (13:15)
[2018-05-19 13:22] LABS: LIPASE 3034 U/L (8-78)
--- NOTE | 2018-05-19 13:33 | Diagnostic Imaging Report ---
PROCEDURE: CT abdomen and pelvis with contrast. TECHNIQUE: Multiple contiguous axial images were obtained through the abdomen and pelvis after administration of intravenous contrast. INDICATION: Upper abdominal pain with nausea and vomiting. COMPARISON: Correlation is made with prior CT from 05/31/2016. FINDINGS: There is some dependent atelectasis in the lung bases. Generalized low density throughout the liver is noted consistent with hepatic steatosis. No discrete liver mass is detected. The gallbladder is unremarkable. No biliary ductal dilatation is seen. There is significant inflammatory stranding surrounding the pancreas. The pancreas does show enhancement, without evidence of necrosis. There are some calcifications in the uncinate consistent with prior episodes of pancreatitis. Possibility of a calculus located in the distal common duct cannot be entirely excluded. Common duct is not well visualized on CT. No well-formed fluid collection is seen. Fluid does extend into the right and left aspects of the retroperitoneum. Splenic vein appears to be patent. The spleen is unremarkable. No adrenal mass is detected. The kidneys are unremarkable. Aorta is non-aneurysmal. There are postsurgical changes in the region of the transverse colon. There is moderate stool in the colon. Small bowel loops are normal caliber. There is a small amount of free fluid in the pelvis. The bladder is unremarkable. IMPRESSION: 1. Findings consistent with acute pancreatitis. Correlation with laboratory studies is recommended. No definite pseudocyst formation or evidence of pancreatic necrosis is identified. There are some calcifications in the region of the pancreatic head and uncinate. The more laterally located calculus does lie adjacent to the duodenal wall and the possibility of a calculus near the ampulla cannot be entirely excluded. There is no evidence of biliary ductal dilatation. 2. Hepatic steatosis. Dictated by: Dictated on workstation # [id number]
[2018-05-19 14:13] LABS: BILIRUBIN,URINE NEGATIVE (NEGATIVE); CLARITY,URINE CLEAR; COLOR,URINE YELLOW; GLUCOSE, URINE (UA) NEGATIVE (NEGATIVE); KETONES,URINE NEGATIVE (NEGATIVE); LEUKOCYTE ESTERASE ,URINE NEGATIVE (NEGATIVE); NITRITE,URINE NEGATIVE (NEGATIVE); PH,URINE 6.5 (5-9); PROTEIN,URINE 2+ (NEGATIVE); UROBILINOGEN,URINE NORMAL (NORMAL)
[2018-05-19 14:19] LABS: BACTERIA,URINE NEGATIVE /HPF
[2018-05-19 14:30] LABS: AMPHETAMINE SCREEN, URINE NEGATIVE (NEGATIVE); BARBITURATE SCREEN URINE NEGATIVE (NEGATIVE); BENZODIAZEPINES SCREEN URINE POSITIVE (NEGATIVE); CANNABINOID SCREEN, URINE POSITIVE (NEGATIVE); COCAINE SCREEN URINE NEGATIVE (NEGATIVE); METHADONE STAT NEGATIVE (NEGATIVE); METHAMPHETAMINE SCREEN URINE S NEGATIVE (NEGATIVE); OPIATE SCREEN URINE POSITIVE (NEGATIVE); OXYCODONE STAT NEGATIVE (NEGATIVE); PROPOXYPHENE STAT NEGATIVE (NEGATIVE); TRICYCLIC ANTIDEPRESSANTS SCRE NEGATIVE (NEGATIVE)
[2018-05-19] MEDS ORDERED: HYDROmorphone 2 MG/ML VIAL (DILAUDID) IV ONE (14:30)
--- NOTE | 2018-05-19 15:38 | Diagnostic Imaging Report ---
PROCEDURE: US Gallbladder. TECHNIQUE: Multiple real-time grayscale images were obtained over the right upper quadrant in various projections. INDICATION: Severe abdominal pain. CT earlier same day demonstrated findings of acute pancreatitis. There are pancreatic calcifications in the region of the pancreatic head and uncinate. The study is performed for further evaluation. FINDINGS: The liver is enlarged at 19 cm. There is diffuse increased echogenicity consistent with hepatic steatosis. No discrete liver mass or evidence of biliary ductal dilatation is seen. Gallbladder is without stones or sludge. There is fluid surrounding the gallbladder. Common duct is 7 mm. No definite common duct stone is visualized by ultrasound. Pancreas is somewhat obscured by free fluid surrounding the gallbladder. No well-formed fluid collection is seen. Right kidney is unremarkable. There is some ascites. IMPRESSION: Features remain suggestive of acute pancreatitis. No definite evidence of choledocholithiasis or cholelithiasis is seen. No pseudocyst formation is identified. Dictated by: Dictated on workstation # [id number]
[2018-05-19 16:00] VITALS: BP 177/110
[2018-05-19] MEDS: LACTATED RINGERS 1,000 ML IV SCH ×2 (16:11→21:26)
[2018-05-19] MEDS: ONDANSETRON 4 MG/2 ML (SDV) Z0FRAN IV PRN (16:11)
[2018-05-19] MEDS ORDERED: CATHETER FLUSH 10 ML SYR IV PRN (16:15)
[2018-05-19 16:33] LABS: ALANINE AMINOTRANSFERASE 112 U/L (0-55); ALKALINE PHOSPHATASE 74 U/L (40-136); BILIRUBIN,TOTAL 0.4 MG/DL (0.1-1.0); BUN/CREATININE RATIO 9; CALCIUM 8.9 MG/DL (8.5-10.1); CARBON DIOXIDE 20 MMOL/L (21-32); CHLORIDE 103 MMOL/L (98-107); CREATININE SERUM 0.69 MG/DL (0.60-1.30); GFR ESTIMATED > 60; GLUCOSE 121 MG/DL (70-105); SODIUM 136 MMOL/L (135-145)
[2018-05-19 16:36] LABS: PROTHROMBIN TIME PATIENT 13.4 SEC (12.2-14.7)
[2018-05-19] MEDS: HYDROmorphone 2 MG/ML VIAL (DILAUDID) IV PRN ×2 (18:36→21:10)
[2018-05-19] MEDS: niCARdipine IV 50 MG in NS (IVPB) 230 ML IV SCH (19:08)
--- NOTE | 2018-05-19 20:36 | History & Physicial (CHS) ---
HPI History of Present Illness: 53 yo M that presented with worsening abdominal pain that started around 4AM this AM. Patient states that he has had similar episodes in the past with pancreatitis. He is a long time drinker and states that he has been drinking about a pint per day since 2000. He has gone weeks without EtOH but has the shakes pretty bad when he does that. Denies ever having withdraw seizures or the DTs. States that he has been hospitalized for withdraw in the past. Has gone to outpatient rehab previously but states that he has never been successful for longer periods of time. Denies any recent increase in EtOH use. States that he does not take any other medications at home. Has been told that he has some damage to his liver but never end stage disease or Cirrhosis. Source: patient, family (Patient's brothers are in the room) Exam Limitations: no limitations Date seen by provider: May 19, 2018 Time Seen by Provider: 16:44 Attending Physician Kalyan Chacon MD [facility] [place] Consult Date of Admission May 19, 2018 at 13:19 Home Medications Home Medications Reviewed patient Home Medication Reconciliation performed by pharmacy medication reconciliations sonogram technician and/or nursing. Patients Allergies have been reviewed. Allergies Coded Allergies: No Known Drug Allergies (Unverified , 11/30/16) DLQ-Nwfokj-Ebyyut Hx Patient Social History Alcohol Use: Regular Use Recreational Drug Use: Yes (POT) Drug of Choice: MARIJUANA Smoking Status: Current Everyday Smoker Type Used: Cigarettes 2nd Hand Smoke Exposure: Yes Recent Foreign Travel: No Contact w/other who traveled: No Recent Hopitalizations: No Recent Infectious Disease Expo: No Immunizations Up To Date Tetanus Booster (TDap): Less than 5yrs Date of Influenza Vaccine: Apr 18, 2018 Past Medical History EtOH abuse Family Medical History Family History: BRAIN CANCER G8 SISTER CROHN'S DISEASE G8 BROTHER LUNG CANCER 19 FATHER SEIZURE DISORDER G8 BROTHER Review of Systems ([facility]) Constitutional: no symptoms reported; No chills, No fever EENTM: no symptoms reported Respiratory: no symptoms reported; No cough, No dyspnea on exertion, No short of breath Cardiovascular: no symptoms reported; No chest pain, No edema, No palpitations Gastrointestinal: abdominal pain; No constipation, No diarrhea; nausea Genitourinary: no symptoms reported; No dysuria, No frequency, No hematuria Musculoskeletal: no symptoms reported Skin: no symptoms reported Psychiatric/Neurological: Anxiety, Depressed Reviewed Test Results Reviewed Test Results Lab Laboratory Tests Test 05/19/18 12:20 05/19/18 14:05 05/19/18 16:08 Range/Units White Blood Count 7.7 4.3-11.0 10^3/uL Red Blood Count 5.05 4.35-5.85 10^6/uL Hemoglobin 17.0 13.3-17.7 G/DL Hematocrit 51 40-54 % Mean Corpuscular Volume 100 H 80-99 FL Mean Corpuscular Hemoglobin 34 25-34 PG Mean Corpuscular Hemoglobin Concent 34 32-36 G/DL Red Cell Distribution Width 14.5 10.0-14.5 % Platelet Count 216 130-400 10^3/uL Mean Platelet Volume 9.9 7.4-10.4 FL Neutrophils (%) (Auto) 68 42-75 % Lymphocytes (%) (Auto) 20 12-44 % Monocytes (%) (Auto) 11 0-12 % Eosinophils (%) (Auto) 0 0-10 % Basophils (%) (Auto) 1 0-10 % Neutrophils # (Auto) 5.2 1.8-7.8 X 10^3 Lymphocytes # (Auto) 1.6 1.0-4.0 X 10^3 Monocytes # (Auto) 0.9 0.0-1.0 X 10^3 Eosinophils # (Auto) 0.0 0.0-0.3 10^3/uL Basophils # (Auto) 0.0 0.0-0.1 10^3/uL Sodium Level 138 136 135-145 MMOL/L Potassium Level 4.0 4.0 3.6-5.0 MMOL/L Chloride Level 103 103 98-107 MMOL/L Carbon Dioxide Level 24 20 L 21-32 MMOL/L Anion Gap 11 13 5-14 MMOL/L Blood Urea Nitrogen 7 6 L 7-18 MG/DL Creatinine 0.80 0.69 0.60-1.30 MG/DL Estimat Glomerular Filtration Rate > 60 > 60 BUN/Creatinine Ratio 9 9 Glucose Level 134 H 121 H 70-105 MG/DL Calcium Level 9.5 8.9 8.5-10.1 MG/DL Corrected Calcium 9.2 8.9 8.5-10.1 MG/DL Magnesium Level 1.7 L 1.8-2.4 MG/DL Total Bilirubin 0.4 0.4 0.1-1.0 MG/DL Aspartate Amino Transf (AST/SGOT) 125 H 103 H 5-34 U/L Alanine Aminotransferase (ALT/SGPT) 130 H 112 H 0-55 U/L Alkaline Phosphatase 82 74 40-136 U/L Lactate Dehydrogenase 209 125-220 U/L Total Protein 8.9 H 8.0 6.4-8.2 GM/DL Albumin 4.4 4.0 3.2-4.5 GM/DL Amylase Level 1272 H 25-125 U/L Lipase 3034 H 8-78 U/L Serum Alcohol 116 H 47 H <10 MG/DL Urine Color YELLOW Urine Clarity CLEAR Urine pH 6.5 5-9 Urine Specific [place] 1.010 L 1.016-1.022 Urine Protein 2+ H NEGATIVE Urine Glucose (UA) NEGATIVE NEGATIVE Urine Ketones NEGATIVE NEGATIVE Urine Nitrite NEGATIVE NEGATIVE Urine Bilirubin NEGATIVE NEGATIVE Urine Urobilinogen NORMAL NORMAL MG/DL Urine Leukocyte Esterase NEGATIVE NEGATIVE Urine RBC (Auto) NEGATIVE NEGATIVE Urine RBC NONE /HPF Urine WBC NONE /HPF Urine Squamous Epithelial Cells NONE /HPF Urine Crystals NONE /LPF Urine Bacteria NEGATIVE /HPF Urine Casts NONE /LPF Urine Mucus NEGATIVE /LPF Urine Culture Indicated NO Urine Opiates Screen POSITIVE H NEGATIVE Urine Oxycodone Screen NEGATIVE NEGATIVE Urine Methadone Screen NEGATIVE NEGATIVE Urine Propoxyphene Screen NEGATIVE NEGATIVE Urine Barbiturates Screen NEGATIVE NEGATIVE Ur Tricyclic Antidepressants Screen NEGATIVE NEGATIVE Urine Phencyclidine Screen NEGATIVE NEGATIVE Urine Amphetamines Screen NEGATIVE NEGATIVE Urine Methamphetamines Screen NEGATIVE NEGATIVE Urine Benzodiazepines Screen POSITIVE H NEGATIVE Urine Cocaine Screen NEGATIVE NEGATIVE Urine Cannabinoids Screen POSITIVE H NEGATIVE Prothrombin Time 13.4 12.2-14.7 SEC INR Comment 1.0 0.8-1.4 Activated Partial Thromboplast Time 31 24-35 SEC Physical Exam-([facility]) Physical Exam Vital Signs VS - Last 72 Hours, by Label 05/19/18 05/19/18 05/19/18 05/19/18 12:29 15:48 16:00 16:27 Temp 95.8 96.0 Pulse 92 82 83 82 Resp 18 18 18 B/P (MAP) 185/120 (141) 162/107 (125) 177/110 (132) Pulse Ox 98 98 95 O2 Delivery Room Air Capillary Refill : Less Than 3 Seconds General Appearance: WD/WN HEENT: PERRL/EOMI Neck: non-tender, full range of motion Respiratory: chest non-tender, lungs clear, normal breath sounds, no respiratory distress, no accessory muscle use Cardiovascular: normal peripheral pulses, regular rate, rhythm, no edema, no murmur Gastrointestinal: normal bowel sounds, soft, tenderness (epigastric), hepatomegaly Back: no CVA tenderness, no vertebral tenderness Extremities: no pedal edema, no calf tenderness, normal capillary refill Neurologic/Psychiatric: child welfare consultant II-XII nml as tested, no motor/sensory deficits, alert, normal mood/affect, oriented x 3 Skin: normal color, warm/dry Lymphatic: no adenopathy Assessment/Plan Assessment/Plan Admission Status: Inpatient Order (span 2 midnights) Reason for Inpatient Admission: Requiring ICU monitoring for EtOH detox and acute pancreatitis needing aggressive IVFs due to NPO status (1) Acute pancreatitis Status: Acute Assessment & Plan: - IV pain medication, NPO, Aggressive IVFs Qualifiers: Qualified Codes: K85.20 - Alcohol induced acute pancreatitis without necrosis or infection (2) HTN (hypertension) Status: Acute Assessment & Plan: - HTN vs EtOH withdrawl, will start Cardene drip given HTN urgency Qualifiers: Qualified Codes: I10 - Essential (primary) hypertension (3) Elevated LFTs Status: Chronic Assessment & Plan: - HIV and acute hepatitis panel pending, Liver US ordered for tomorrow (4) Alcoholism Status: Acute Assessment & Plan: CIWS with ativan, Thiamine and Folic Acid replacement (5) DVT prophylaxis Assessment & Plan: Lovenox Clinical Quality Measures DVT/VTE Risk/Contraindication: RFS Level Per Nursing on Admit: 1=Low/No VTE PPX Copy Copies To 1: KALYAN ENGEL MD May 19, 2018 20:36
[2018-05-19 20:53] VITALS: BP 145/92
[2018-05-19] MEDS: PANTOPRAZOLE 40 MG (PROTONIX) VIAL IV SCH (21:09)
[2018-05-20 00:25] VITALS: BP 117/85
[2018-05-20] MEDS: HYDROmorphone 2 MG/ML VIAL (DILAUDID) IV PRN ×7 (01:32→22:13)
[2018-05-20] MEDS: LACTATED RINGERS 1,000 ML IV SCH ×3 (02:48→17:41)
[2018-05-20 03:56] LABS: ALANINE AMINOTRANSFERASE 91 U/L (0-55); ALBUMIN 3.8 GM/DL (3.2-4.5); ALKALINE PHOSPHATASE 72 U/L (40-136); BILIRUBIN,TOTAL 1.1 MG/DL (0.1-1.0); BUN/CREATININE RATIO 10; CALCIUM 9.1 MG/DL (8.5-10.1); CARBON DIOXIDE 23 MMOL/L (21-32); CHLORIDE 101 MMOL/L (98-107); CREATININE SERUM 0.78 MG/DL (0.60-1.30); GFR ESTIMATED > 60; GLUCOSE 122 MG/DL (70-105); LIPASE > 1200 U/L (8-78); POTASSIUM 4.3 MMOL/L (3.6-5.0); SODIUM 137 MMOL/L (135-145); TOTAL PROTEIN 7.8 GM/DL (6.4-8.2)
[2018-05-20 04:32] VITALS: BP 120/78
[2018-05-20] MEDS: ONDANSETRON 4 MG/2 ML (SDV) Z0FRAN IV PRN ×2 (04:38→19:28)
[2018-05-20 07:46] VITALS: BP 110/85
[2018-05-20] MEDS: FOLIC ACID 1 MG TAB PO SCH (08:02)
[2018-05-20] MEDS: THIAMINE 100 MG (VITAMIN B-1) TAB PO SCH (08:02)
[2018-05-20] MEDS: PANTOPRAZOLE 40 MG (PROTONIX) VIAL IV SCH ×2 (08:02→20:56)
[2018-05-20] MEDS: niCARdipine IV 50 MG in NS (IVPB) 230 ML IV SCH ×2 (08:02→10:35)
--- NOTE | 2018-05-20 11:31 | Progress Note (SOAP) ---
Subjective Subjective/Events-last exam Patient states that he is feeling much better this AM. Still having some pain. Denies any withdraw symptoms at this time. Would like to try some sips of water. Review of Systems Date Seen by Provider: May 20, 2018 Time Seen by Provider: 08:45 Pulmonary: No Dyspnea, No Cough Cardiovascular: No: Chest Pain, Palpitations Gastrointestinal: Abdominal Pain Genitourinary: No Dysuria, No Frequency Objective Exam Last Set of Vital Signs Vital Signs Date Time Temp Pulse Resp B/P (MAP) Pulse Ox O2 Delivery O2 Flow Rate FiO2 05/20/18 08:00 Room Air 05/20/18 07:46 97.2 102 18 110/85 (93) 95 Capillary Refill : Less Than 3 Seconds I&O Intake and Output 05/20/18 00:00 Output Total 200 ml Balance -200 ml Output Urine Total 200 ml Daily Weight Change Unsure General: Alert, Oriented X3, No Acute Distress HEENT: Mucous Memb Moist/[place], Other Lungs: Clear to Auscultation, Normal Air Movement Heart: Regular Rate, No Murmurs Abdomen: Normal Bowel Sounds, Other (Mild epigastric ttp, no rebound or gaurding) Neuro: Cranial Nerves 3-12 NL Results/Procedures Lab Laboratory Tests 05/19/18 12:20: White Blood Count 7.7, Red Blood Count 5.05, Hemoglobin 17.0, Hematocrit 51, Mean Corpuscular Volume 100H, Mean Corpuscular Hemoglobin 34, Mean Corpuscular Hemoglobin Concent 34, Red Cell Distribution Width 14.5, Platelet Count 216, Mean Platelet Volume 9.9, Neutrophils (%) (Auto) 68, Lymphocytes (%) (Auto) 20, Monocytes (%) (Auto) 11, Eosinophils (%) (Auto) 0, Basophils (%) (Auto) 1, Neutrophils # (Auto) 5.2, Lymphocytes # (Auto) 1.6, Monocytes # (Auto) 0.9, Eosinophils # (Auto) 0.0, Basophils # (Auto) 0.0, Sodium Level 138, Potassium Level 4.0, Chloride Level 103, Carbon Dioxide Level 24, Anion Gap 11, Blood Urea Nitrogen 7, Creatinine 0.80, Estimat Glomerular Filtration Rate > 60, BUN/ Creatinine Ratio 9, Glucose Level 134H, Calcium Level 9.5, Corrected Calcium 9.2 , Magnesium Level 1.7L, Total Bilirubin 0.4, Aspartate Amino Transf (AST/SGOT) 125H, Alanine Aminotransferase (ALT/SGPT) 130H, Alkaline Phosphatase 82, Lactate Dehydrogenase 209, Total Protein 8.9H, Albumin 4.4, Amylase Level 1272H , Lipase 3034H, Serum Alcohol 116H 05/19/18 14:05: Urine Color YELLOW, Urine Clarity CLEAR, Urine pH 6.5, Urine Specific [place] 1.010L, Urine Protein 2+H, Urine Glucose (UA) NEGATIVE, Urine Ketones NEGATIVE, Urine Nitrite NEGATIVE, Urine Bilirubin NEGATIVE, Urine Urobilinogen NORMAL, Urine Leukocyte Esterase NEGATIVE, Urine RBC (Auto) NEGATIVE, Urine RBC NONE, Urine WBC NONE, Urine Squamous Epithelial Cells NONE, Urine Crystals NONE, Urine Bacteria NEGATIVE, Urine Casts NONE, Urine Mucus NEGATIVE, Urine Culture Indicated NO, Urine Opiates Screen POSITIVEH, Urine Oxycodone Screen NEGATIVE, Urine Methadone Screen NEGATIVE, Urine Propoxyphene Screen NEGATIVE, Urine Barbiturates Screen NEGATIVE, Ur Tricyclic Antidepressants Screen NEGATIVE, Urine Phencyclidine Screen NEGATIVE, Urine Amphetamines Screen NEGATIVE, Urine Methamphetamines Screen NEGATIVE, Urine Benzodiazepines Screen POSITIVEH, Urine Cocaine Screen NEGATIVE, Urine Cannabinoids Screen POSITIVEH 05/19/18 16:08: Sodium Level 136, Potassium Level 4.0, Chloride Level 103, Carbon Dioxide Level 20L, Anion Gap 13, Blood Urea Nitrogen 6L, Creatinine 0.69, Estimat Glomerular Filtration Rate > 60, BUN/Creatinine Ratio 9, Glucose Level 121H, Calcium Level 8.9, Corrected Calcium 8.9, Total Bilirubin 0.4, Aspartate Amino Transf (AST/ SGOT) 103H, Alanine Aminotransferase (ALT/SGPT) 112H, Alkaline Phosphatase 74, Total Protein 8.0, Albumin 4.0, Serum Alcohol 47H, Prothrombin Time 13.4, INR Comment 1.0, Activated Partial Thromboplast Time 31, HIV (1&2) Ag and Ab Screen Referral Non-Reactive 05/20/18 01:33: Glucometer 122H 05/20/18 03:00: Sodium Level 137, Potassium Level 4.3, Chloride Level 101, Carbon Dioxide Level 23, Anion Gap 13, Blood Urea Nitrogen 8, Creatinine 0.78, Estimat Glomerular Filtration Rate > 60, BUN/Creatinine Ratio 10, Glucose Level 122H, Calcium Level 9.1, Corrected Calcium 9.3, Total Bilirubin 1.1H, Aspartate Amino Transf ( AST/SGOT) 76H, Alanine Aminotransferase (ALT/SGPT) 91H, Alkaline Phosphatase 72 , Total Protein 7.8, Albumin 3.8, Lipase > 1200H Assessment/Plan Assessment/Plan (1) Acute pancreatitis Status: Acute Assessment & Plan: - IV pain medication, NPO, Aggressive IVFs 05/20: Decrease IVFs to 75/hr, will start clears, if tolerates will change to PO pain meds Qualifiers: Qualified Codes: K85.20 - Alcohol induced acute pancreatitis without necrosis or infection (2) HTN (hypertension) Status: Acute Assessment & Plan: - HTN vs EtOH withdrawl, will start Cardene drip given HTN urgency 05/20: Controlled off Cardene drip, transfer out of ICU Qualifiers: Qualified Codes: I10 - Essential (primary) hypertension (3) Elevated LFTs Status: Chronic Assessment & Plan: - HIV and acute hepatitis panel pending (4) Alcoholism Status: Acute Assessment & Plan: CIWS with ativan, Thiamine and Folic Acid replacement (5) DVT prophylaxis Assessment & Plan: Lovenox Clinical Quality Measures DVT/VTE Risk/Contraindication: RFS Level Per Nursing on Admit: 1=Low/No VTE PPX KALYAN ALEMAN MD May 20, 2018 11:30
[2018-05-20] MEDS: LORazepam 1 MG (ATIVAN) TAB PO PRN ×2 (12:51→21:11)
--- NOTE | 2018-05-20 14:10 | NUR ---
PT TRANSFERRED TO ROOM 428 VIA WC ACCOMPANIED BY THIS RN. PT PERSONAL BELONGINGS SENT WIHT PT TO ROOM 428. REPORT GIVEN TO LESIA PRICE FOR CONTINUING CARE.
--- NOTE | 2018-05-20 14:15 | NUR ---
Patient transferred to 428 per [facility] accompanied by ROBOTICS ENGINEERALBERT ALBARRAN. Patient and family notified and understand transfer. Personal belongings with patient. Report given to THIS RN FRO ROBOTICS ENGINEERALBERT ALBARRAN.
[2018-05-20 15:34] VITALS: BP 119/79
[2018-05-20 20:00] VITALS: BP 140/89
[2018-05-21] VITALS: BP 134/88
[2018-05-21] MEDS: niCARdipine IV 50 MG in NS (IVPB) 230 ML IV SCH (00:45)
[2018-05-21 04:00] VITALS: BP 137/87
[2018-05-21] MEDS: HYDROmorphone 2 MG/ML VIAL (DILAUDID) IV PRN ×2 (04:02→08:53)
--- NOTE | 2018-05-21 04:10 | NUR ---
CALLED DR. ALEMAN AND INFORMED HER THAT PATIENT WAS RUNNING A TEMP OF 101.1 WITH HR OF 123 AND THAT O2 HAD BEEN APPLIED AT 2L TO KEEP SATS AT 93%. RECEIVED ORDER FOR ROCEPHIN X1 NOW AND MOTRIN 600 MG PO Q8 PRN FOR FEVER.
[2018-05-21] MEDS ORDERED: IBUPROFEN 600 MG (MOTRIN) TAB PO ONE (04:20)
[2018-05-21] MEDS ORDERED: cefTRIAXone 1,000 MG IV (ROCEPHIN) VIAL ONE (04:21)
[2018-05-21] MEDS ORDERED: WATER (STERILE) FOR INJECTION 10 ML ONE (04:21)
[2018-05-21] MEDS ORDERED: cefTRIAXone FOR IV USE 1,000 MG in WATER (STERILE) FOR INJECTION 10 ML IV ONE (04:30)
[2018-05-21] MEDS ORDERED: IBUPROFEN 600 MG (MOTRIN) TAB PO PRN (04:30)
[2018-05-21] MEDS: LACTATED RINGERS 1,000 ML IV SCH (05:18)
[2018-05-21] MEDS: LORazepam 1 MG (ATIVAN) TAB PO PRN ×3 (05:18→15:05)
[2018-05-21 06:11] LABS: HEPATITIS C ANTIBODY C Reactive (Non-Reactive)
[2018-05-21 06:32] LABS: ALANINE AMINOTRANSFERASE 59 U/L (0-55); ALBUMIN 3.5 GM/DL (3.2-4.5); ALKALINE PHOSPHATASE 72 U/L (40-136); BILIRUBIN,TOTAL 1.2 MG/DL (0.1-1.0); BUN/CREATININE RATIO 16; CALCIUM 8.5 MG/DL (8.5-10.1); CARBON DIOXIDE 24 MMOL/L (21-32); CHLORIDE 96 MMOL/L (98-107); CREATININE SERUM 0.87 MG/DL (0.60-1.30); GFR ESTIMATED > 60; GLUCOSE 109 MG/DL (70-105); LIPASE 545 U/L (8-78); POTASSIUM 4.2 MMOL/L (3.6-5.0); SODIUM 130 MMOL/L (135-145); TOTAL PROTEIN 7.3 GM/DL (6.4-8.2)
[2018-05-21] MEDS: THIAMINE 100 MG (VITAMIN B-1) TAB PO SCH (06:39)
[2018-05-21 08:00] VITALS: BP 135/92
[2018-05-21] MEDS: PANTOPRAZOLE 40 MG (PROTONIX) VIAL IV SCH (08:54)
[2018-05-21] MEDS: FOLIC ACID 1 MG TAB PO SCH (08:54)
[2018-05-21] MEDS ORDERED: oxyCODONE/APAP 7.5-325 MG (PERCOCET 7.5) TABLET PO PRN (09:15)
--- NOTE | 2018-05-21 09:31 | NUR ---
CM/SS attempted to respond to consult for SS. Patient is sleeping soundly at this time. Will visit with him at a later time.
[2018-05-21 12:00] VITALS: BP 140/92
--- NOTE | 2018-05-21 12:09 | NUR ---
CM/SS spoke with the patient in regards to the SS consult. Patient has had treatment previously and is not interested. He especially doesn't like group setting therapy, discussed that he could do individual therapy. He stated that at this time he was not interested in treatment and he knows what he needs to do. Did provide him with an information sheet on Addiction Treatment Services for [facility]. Advised him to call and schedule an assessment if he finds it harder to quit than he thinks it will be or for the added support they can offer.
--- NOTE | 2018-05-21 14:54 | Discharge Summary ---
Diagnosis/Chief Complaint Date of Admission May 19, 2018 at 13:19 Date of Discharge Discharge Diagnosis Problems/Diagnosis: (1) Acute pancreatitis Assessment & Plan: - IV pain medication, NPO, Aggressive IVFs 05/20: Decrease IVFs to 75/hr, will start clears, if tolerates will change to PO pain meds Qualifiers: Qualified Codes: K85.20 - Alcohol induced acute pancreatitis without necrosis or infection Status: Acute (2) HTN (hypertension) Assessment & Plan: - HTN vs EtOH withdrawl, will start Cardene drip given HTN urgency 05/20: Controlled off Cardene drip, transfer out of ICU Qualifiers: Qualified Codes: I10 - Essential (primary) hypertension Status: Acute (3) Elevated LFTs Assessment & Plan: - HIV and acute hepatitis panel pending Status: Chronic (4) Alcoholism Assessment & Plan: CIWS with ativan, Thiamine and Folic Acid replacement Status: Acute (5) DVT prophylaxis Assessment & Plan: Lovenox Chief Complaint/HPI Chief Complaint/HPI 53 yo M that presented with worsening abdominal pain that started around 4AM this AM. Patient states that he has had similar episodes in the past with pancreatitis. He is a long time drinker and states that he has been drinking about a pint per day since 2000. He has gone weeks without EtOH but has the shakes pretty bad when he does that. Denies ever having withdraw seizures or the DTs. States that he has been hospitalized for withdraw in the past. Has gone to outpatient rehab previously but states that he has never been successful for longer periods of time. Denies any recent increase in EtOH use. States that he does not take any other medications at home. Has been told that he has some damage to his liver but never end stage disease or Cirrhosis. Discharge Summary-Simple/Stand Consultations Discharge Physical Examination Allergies: Coded Allergies: No Known Drug Allergies (Unverified , 11/30/16) Vitals & I&Os Vital Sign - Last 12Hours Date Time Temp Pulse Resp B/P (MAP) Pulse Ox O2 Delivery O2 Flow Rate FiO2 05/21/18 09:16 96 Nasal Cannula 1.00 05/21/18 08:00 96.5 99 16 135/92 (106) Intake and Output 05/21/18 00:00 Intake Total 480 ml Output Total 175 ml Balance 305 ml Hospital Course See final discharge diagnosis. Discharge Instructions to patient/family Please see electronic discharge instructions given to patient. Discharge Medications Reviewed and agree with Discharge Medication list on patient's Discharge Instruction sheet Clinical Quality Measures DVT/VTE Risk/Contraindication: RFS Level Per Nursing on Admit: 1=Low/No VTE PPX KALYAN ALEMAN MD May 21, 2018 14:54
[2018-05-21] MEDS ORDERED: THIA100T80 PO (14:57)
[2018-05-21] MEDS ORDERED: FOLI1TAB24 PO (14:57)
[2018-05-21] MEDS ORDERED: IBUP-844 PO (14:57)
--- NOTE | 2018-05-21 15:01 | Discharge Instructions ---
Discharge Inst-[facility] Discharge Medications New, Converted or Re-Newed RX: Transmitted to Pharmacy New Medications: Folic Acid (Folic Acid) 1 Mg Tablet 1 MG PO DAILY for 14 Days, #14 TAB Ibuprofen (Ibu) 600 Mg Tablet 600 MG PO Q8HR PRN for TEMPERATURE, #60 TAB Thiamine HCl (Vitamin B-1) 100 Mg Tablet 100 MG PO DAILY@0700 for 14 Days, #14 TAB Patient Instructions Goal/Follow Up Appt: You have a [facility] appt with Sawyer Cueva in [place] on May 27 @ 1120 AM Patient Instructions: - Discussed the importance of Alcohol Cessation - Make sure to continue to take the Folic acid and thiamine for the next 14 days - Encouraged patient to reach out to support systems to help with Alcohol Cessation via Inpatient vs Outpatient treatment, Please contacts ATS at [facility] if you would like outpatient help Activity & Diet Discharge Diet: Avoid Fatty Foods Activity as Tolerated: Yes Orders-Post D/C & Referrals Pneu Vac Indicated: Yes [facility] [place] KALYAN ALEMAN MD May 21, 2018 15:01
--- NOTE | 2018-05-21 16:00 | NUR ---
DISCHARGE INSTRUCTIONS GIVEN, VERBALIZED UNDERSTANDING, OF FOLLOW AND AND NEW PRESCRIPTIONS, PATIENT TOOK OWN IV OUT, ATE 100 PERCENT LUNCH, DENIES NAUSEA OR PAIN.
[2018-05-21 16:05] VITALS: BP 140/92
--- NOTE | 2018-05-21 16:05 | NUR ---
JULIO CANALES demonstrates understanding of discharge instructions and accurately returns instructions upon questioning. Copy of Post-Discharge Instructions and Medication Discharge Instructions given to PATIENT. JULIO CANALES is able to manage continuing needs after discharge. Patients belongings returned to PATIENT. Skin dry and intact; no breakdown noted. Patient discharged from [facility]- on 05/21/18 at 1065 . JULIO CANALES left floor via AMBULATORY, accompanied by STAFF.
[2018-05-21] MEDS ORDERED: NS (IVPB) 250 ML ONE (22:06)
[2018-05-21] MEDS ORDERED: AZITHROMYCIN 500 MG (ZITHROMAX) VIAL ONE (22:07)
[2018-05-22] MEDS ORDERED: PANTOPRAZOLE 40 MG (PROTONIX) TAB PO SCH (09:00)
== END 2018-05-21 16:05 | disposition home or self-care (01) | DRG 439 ==
LOC: EDUNIT# 12:14 → ER 12:16 → ICU 13:19 → 4TH 05-20 12:15
PROVIDERS: ADMIT Family Medicine; ATTEND Family Medicine
DX: K85.20 Alcohol induced acute pancreatitis without necrosis or infection (principal); I16.0 Hypertensive urgency; F10.239 Alcohol dependence with withdrawal, unspecified; J43.9 Emphysema, unspecified; B19.20 Unspecified viral hepatitis C without hepatic coma; F17.210 Nicotine dependence, cigarettes, uncomplicated; F41.9 Anxiety disorder, unspecified; F32.9 Major depressive disorder, single episode, unspecified
CPT/HCPCS: 36415; 74177; 76705; 80053; 80074; 80306; 80320; 81000; 82150; 82962; 83615; 83690; 83735; 85025; 85610; 85730; 86703; 96374; 96375; 96376

== ENCOUNTER 2018-08-18 13:32 | Emergency (ER) | payer SELFPAY ==
[~2018-08-18] VITALS: Ht 190.5 cm; Wt 83.9 kg
[~2018-08-18 13:32] MED LIST changes: +FOLI1TAB24 PO; +IBUP-844 PO; +THIA100T80 PO
[2018-08-18] MEDS ORDERED: FAMOTIDINE 20 MG (PEPCID) TABLET PO STA (14:07)
--- NOTE | 2018-08-18 14:10 | NUR ---
pt here with self alert gcs 15. pt points to and c/o bilateral upper quad abd pain off and on. current pain rating 10 before i said 0-10. pt also c/o n/v/d and relates h/o alcohol abuse, pancreatitis, and has hep c. pt also c/o dyspnea and no acute sighns of dyspnea noted. pt quite talkative in complete sentences. lungs slight insp wheezes. none audible. pt is a smoker. abd soft nondistended tneder to palpation bilaterall upper quads only. pt instructed npo. done seing pt
[2018-08-18] MEDS ORDERED: cefTRIAXone FOR IV USE 1,000 MG in WATER (STERILE) FOR INJECTION 10 ML IV ONE (14:15)
[2018-08-18] MEDS ORDERED: LIDOCAINE 2% VISCOUS 15 ML UDC PO ONE (14:15)
[2018-08-18] MEDS ORDERED: ANTACID SUSP 30 ML UDC (MYLANTA) PO ONE (14:15)
[2018-08-18] MEDS ORDERED: ONDANSETRON 4 MG/2 ML (SDV) Z0FRAN IV PRN (14:15)
[2018-08-18] MEDS ORDERED: metroNIDAZOLE 500MG/100ML IVPB 100 ML IV ONE (14:15)
[2018-08-18] MEDS ORDERED: LACTATED RINGERS 2,000 ML IV PRN (14:15)
[2018-08-18] MEDS ORDERED: KETOROLAC 30 MG/ML VIAL IVP ONE (14:15)
--- NOTE | 2018-08-18 14:16 | ED Abdominal Pain ---
General Chief Complaint: Abdominal/GI Problems Stated Complaint: ABD PAIN Nursing Triage Note: PT REPORTS ABD PAIN THAT STARTED LAST WEEK. PT REPORTS TRYING PAIN MEDICATIONS THAT HE HAD AT HOME BUT PAIN KEEPS GETTING WORSE. PT WAS RECENTLY HOSPITALIZED FOR PANCREATITS AND HE STATES IT FEELS LIKE THIS AGAIN. Sepsis Screen: No Definite Risk Source of Information: Patient Exam Limitations: No Limitations History of Present Illness Date Seen by Provider: August 18, 2018 Time Seen by Provider: 14:01 Initial Comments The patient presents to ER by private conveyance with chief complaint of epigastric abdominal pain. He is known to this examiner unfortunately suffers from alcoholism drinking about a pint of cheap liquor a day and chronic pancreatitis. He says it never truly goes away and often times he has nausea but the last 3 days he's had progressively worsening pain. He did vomit once yesterday and a couple times a day. He has been having loose stools lately. He has a history of colon cancer status post colectomy and a couple months ago Dr. Adam performed a colonoscopy and removed a polyp. Patient denies any fevers chills cough chest pain. He also has a history of alcoholic gastritis and biliary sludge without cholecystitis in the past. He still has his appendix as far as he knows. Allergies and Home Medications Allergies Coded Allergies: No Known Drug Allergies (Unverified , 08/18/18) Home Medications Ibuprofen 600 Mg Tablet, 600 MG PO Q8HR PRN for TEMPERATURE Prescribed by: KALYAN ALEMAN on 05/21/18 [id number] Patient Home Medication List Home Medication List Reviewed: Yes Review of Systems Review of Systems Constitutional: No chills, No fever EENTM: No Blurred Vision, No Double Vision Respiratory: Denies Cough, Denies Shortness of Air Cardiovascular: Denies Chest Pain, Denies Edema Gastrointestinal: See HPI; Denies Abdomen Distended; Abdominal Pain; Denies Constipated; Diarrhea, Nausea, Vomiting Genitourinary: Denies Burning, Denies Discharge Musculoskeletal: No back pain, No joint pain Skin: No pruritus, No rash Psychiatric/Neurological: Denies Headache, Denies Numbness Past [id number]-Uqkthm Hx Patient Social History Alcohol Use: Regular Use Number of Drinks Today: FF Alcohol Beverage of Choice: Vodka Recreational Drug Use: Yes (" pot") Drug of Choice: MARIJUANA Smoking Status: Current Everyday Smoker Type Used: Cigarettes (pack per day) 2nd Hand Smoke Exposure: Yes Recent Foreign Travel: No Contact w/Someone Who Travel: No Recent Infectious Disease Expo: No Recent Hopitalizations: No Immunizations Up To Date Tetanus Booster (TDap): Less than 5yrs Date of Influenza Vaccine: Apr 18, 2018 Seasonal Allergies Seasonal Allergies: No Past Medical History Surgeries: Yes (wisdom teeth, hernia repair, LEFT FINGER) Orthopedic Respiratory: No Asthma, Emphysema Cardiac: No Neurological: No Reproductive Disorders: No Sexually Transmitted Disease: No HIV/AIDS: No Genitourinary: No Gastrointestinal: Yes (HX PANCREATITIS, HEP C) Chronic Diarrhea, Hepatitis Musculoskeletal: Yes Degenerate Disk Disease Endocrine: No HEENT: No Loss of Vision: Bilateral Hearing Impairment: Denies Cancer: No Colon What Type of Treatment Did You: Surgical Intervention Psychosocial: Yes (alcohol dependence with heavily daily use) Integumentary: No Blood Disorders: No Adverse Reaction/Blood Tranf: No Family Medical History BRAIN CANCER G8 SISTER CROHN'S DISEASE G8 BROTHER LUNG CANCER 19 FATHER SEIZURE DISORDER G8 BROTHER Physical Exam Vital Signs Vital Signs - First Documented 08/18/18 08/18/18 13:40 15:31 Temp 97.3 Pulse 125 Resp 22 B/P (MAP) 137/89 (105) Pulse Ox 96 O2 Delivery Room Air Capillary Refill : Less Than 3 Seconds Height/Weight/BMI Height: 6'3.00" Weight: 185lbs. 3.0oz. 83.867382ux; 24.4 BMI Method:Stated General Appearance: mild distress, thin HEENT: PERRL/EOMI; No pharynx normal (. Oropharynx is dry) Neck: full range of motion, normal inspection Respiratory: lungs clear, normal breath sounds, no respiratory distress, no accessory muscle use Cardiovascular: normal peripheral pulses, regular rate, rhythm, tachycardia Peripheral Pulses: 2+ Radial Pulses (R), 2+ Radial Pulses (L) Gastrointestinal: normal bowel sounds, guarding (epigastric), tenderness (epigastric and right upper quadrant without Marshall sign), other (negative for rebound tenderness or tenderness over McBurney's point, Rovsing sign, mesenteric signs or psoas sign.) Back: normal inspection, no CVA tenderness, no vertebral tenderness Neurologic/Psychiatric: alert, normal mood/affect, oriented x 3 Skin: normal color, warm/dry Focused Exam Lactate Level 08/18/18 14:15: Lactic Acid Level 1.60 Lactic Acid Level Laboratory Tests Test 08/18/18 14:15 Lactic Acid Level 1.60 MMOL/L (0.50-2.00) Progress/Results/Core Measures Results/Orders Lab Results Laboratory Tests Test 08/18/18 14:15 08/18/18 15:24 Range/Units White Blood Count 5.6 4.3-11.0 10^3/uL Red Blood Count 4.75 4.35-5.85 10^6/uL Hemoglobin 15.9 13.3-17.7 G/DL Hematocrit 45 40-54 % Mean Corpuscular Volume 95 80-99 FL Mean Corpuscular Hemoglobin 34 25-34 PG Mean Corpuscular Hemoglobin Concent 35 32-36 G/DL Red Cell Distribution Width 14.5 10.0-14.5 % Platelet Count 164 130-400 10^3/uL Mean Platelet Volume 9.6 7.4-10.4 FL Neutrophils (%) (Auto) 35 L 42-75 % Lymphocytes (%) (Auto) 47 H 12-44 % Monocytes (%) (Auto) 17 H 0-12 % Eosinophils (%) (Auto) 1 0-10 % Basophils (%) (Auto) 1 0-10 % Neutrophils # (Auto) 1.9 1.8-7.8 X 10^3 Lymphocytes # (Auto) 2.7 1.0-4.0 X 10^3 Monocytes # (Auto) 1.0 0.0-1.0 X 10^3 Eosinophils # (Auto) 0.0 0.0-0.3 10^3/uL Basophils # (Auto) 0.0 0.0-0.1 10^3/uL Prothrombin Time 12.5 12.2-14.7 SEC INR Comment 0.9 0.8-1.4 Activated Partial Thromboplast Time 30 24-35 SEC Sodium Level 138 135-145 MMOL/L Potassium Level 3.9 3.6-5.0 MMOL/L Chloride Level 101 98-107 MMOL/L Carbon Dioxide Level 22 21-32 MMOL/L Anion Gap 15 H 5-14 MMOL/L Blood Urea Nitrogen 9 7-18 MG/DL Creatinine 0.78 0.60-1.30 MG/DL Estimat Glomerular Filtration Rate > 60 BUN/Creatinine Ratio 12 Glucose Level 109 H 70-105 MG/DL Lactic Acid Level 1.60 0.50-2.00 MMOL/L Calcium Level 10.0 8.5-10.1 MG/DL Corrected Calcium 9.9 8.5-10.1 MG/DL Total Bilirubin 0.6 0.1-1.0 MG/DL Aspartate Amino Transf (AST/SGOT) 267 H 5-34 U/L Alanine Aminotransferase (ALT/SGPT) 300 H 0-55 U/L Alkaline Phosphatase 92 40-136 U/L Total Protein 8.3 H 6.4-8.2 GM/DL Albumin 4.1 3.2-4.5 GM/DL Amylase Level 78 25-125 U/L Lipase 27 8-78 U/L Serum Alcohol 103 H <10 MG/DL Monoscreen NEGATIVE NEGATIVE Urine Color YELLOW Urine Clarity CLEAR Urine pH 7 5-9 Urine Specific [place] 1.010 L 1.016-1.022 Urine Protein NEGATIVE NEGATIVE Urine Glucose (UA) NEGATIVE NEGATIVE Urine Ketones NEGATIVE NEGATIVE Urine Nitrite NEGATIVE NEGATIVE Urine Bilirubin NEGATIVE NEGATIVE Urine Urobilinogen NORMAL NORMAL MG/DL Urine Leukocyte Esterase NEGATIVE NEGATIVE Urine RBC (Auto) NEGATIVE NEGATIVE Urine RBC NONE /HPF Urine WBC NONE /HPF Urine Squamous Epithelial Cells 5-10 /HPF Urine Crystals NONE /LPF Urine Bacteria LARGE H /HPF Urine Casts NONE /LPF Urine Culture Indicated NO My Orders Orders - LINDSAY BOLIVAR Ua Culture If Indicated (08/18/18 13:33) Cbc With Automated Diff (08/18/18 14:07) Comprehensive Metabolic Panel (08/18/18 14:07) Blood Culture (08/18/18 14:07) Sputum Culture (08/18/18 14:07) Urinalysis (08/18/18 14:07) Urine Culture (08/18/18 14:07) Protime With Inr (08/18/18 14:07) Partial Thromboplastin Time (08/18/18 14:07) Ed Iv/Invasive Line Start (08/18/18 14:07) Ed Iv/Invasive Line Start (08/18/18 14:07) Vital Signs Adult Sepsis Patie Q15M (08/18/18 14:07) Ondansetron Injection (Zofran Injectio (08/18/18 14:15) O2 (08/18/18 14:07) Remove Rings In Anticipation O (08/18/18 14:07) Lactic Acid Analyzer (08/18/18 14:07) Lactated Ringers (Lr 1000 Ml Iv Solution (08/18/18 14:15) Ceftriaxone For Iv Use (Rocephin For I (08/18/18 14:15) Metronidazole 500mg/100ml Ivpb (Flagyl 5 (08/18/18 14:15) Lidocaine 2% Viscous 15 Ml (Xylocaine Vi (08/18/18 14:15) Famotidine Tablet (Pepcid Tablet) (08/18/18 14:07) Antacid Suspension (Mylanta Suspension (08/18/18 14:15) Lipase (08/18/18 14:07) Amylase (08/18/18 14:07) Ketorolac Injection (Toradol Injection) (08/18/18 14:15) Alcohol (08/18/18 14:18) Monotest (08/18/18 14:18) Fentanyl Injection (Sublimaze Injection (08/18/18 15:30) Us Gallbladder 23048 (08/18/18 15:40) Medications Given in ED Current Medications Medications Dose Ordered Sig/Urszula Route Start Time Stop Time Status Last Admin Dose Admin Al Hydrox/Mg Hydrox/Simethicone 30 ml ONCE ONCE PO 08/18/18 14:15 08/18/18 14:16 DC 08/18/18 14:36 30 ML Ketorolac Tromethamine 30 mg ONCE ONCE IVP 08/18/18 14:15 08/18/18 14:16 DC 08/18/18 14:35 30 MG Lactated Ringer's 2,000 ml @ 2,000 mls/hr PRN PRN IV 08/18/18 14:15 08/18/18 14:33 2,000 MLS/HR Lidocaine HCl 15 ml ONCE ONCE PO 08/18/18 14:15 08/18/18 14:16 DC 08/18/18 14:37 15 ML Ondansetron HCl 4 mg PRN PRN IV 08/18/18 14:15 08/18/18 14:47 DC 08/18/18 14:46 4 MG Vital Signs/I&O 08/18/18 08/18/18 08/18/18 13:40 14:35 15:31 Temp 97.3 97.3 98.5 Pulse 125 84 Resp 22 16 B/P (MAP) 137/89 (105) 139/89 (106) Pulse Ox 96 99 O2 Delivery Room Air Blood Pressure Mean: 105 Progress Progress Note #1: Time: 14:19 Progress Note Patient has raised a concern whether or not he has mono because disease a sore throat lately as well as body aches malaise. Check a Monospot. He does not have an enlarged spleen. He does have epigastric and right upper quadrant tenderness with a history of biliary sludge, alcoholic gastritis and pancreatitis. So we'll check lipase, alcohol, urinalysis since he is having some mild back pain to make sure there is not a kidney infection, septic workup given his heart rate in the 125 on presentation the potential for elevated white count. 2 L of saline be more than 20 mL/kg. If he has a white count we can treat with antibiotics. If not we'll hold off as a history of diarrhea could be worsened with antibiotics unnecessarily given. Progress Note #2: Time: 16:08 Progress Note Urinalysis likely represents contamination. We have given him some fluids. The Toradol did not help so we ordered some fentanyl. Probably has alcoholic gastritis so we'll put him on some antacids and Carafate and have him follow-up with the general surgeon. He is known to Dr. Adam. Is elevated transaminases are likely due to his chronic hepatitis C which she cannot get treated because he continues to drink alcohol. Diagnostic Imaging Diagonstic Imaging: Ultrasound Plain Films/CT/US/NM/MRI: abdomen (gallbladder) Comments No acute findings. No stones or sludge. No thickened gallbladder wall or pericholecystic fluid. Reviewed: Reviewed by Me Departure Impression Primary Impression: Alcoholic gastritis without bleeding Qualified Codes: K29.20 - Alcoholic gastritis without bleeding Additional Impression: Alcohol dependence Qualified Codes: F10.29 - Alcohol dependence with unspecified alcohol- induced disorder Disposition: 01 HOME, SELF-CARE Condition: Stable Departure-Patient Inst. Decision time for Depature: 16:11 Referrals: [facility] (PCP/Family) Primary Care Physician PAULETTE ADAM DO Patient Instructions: Gastritis (DC), Ulcer and Gastritis Diet Add. Discharge Instructions: Please review the attached handout on diet. Reduce the amount of alcohol you drink or work on quitting. [facility] as an outpatient alcohol dependence clinic that can help you with this. Call Dr. Adam and request an appointment for reexamination for your alcoholic gastritis and continued outpatient management. If you have nausea use Zofran 1 tablet every 6 hours. If you have pain use Tylenol 1000 mg as well as omeprazole and Maalox. Continue to take omeprazole 40 mg daily and start the Carafate 1 tablet half hour prior to meals and at bedtime, 4 times a day for the next 2 weeks. All discharge instructions reviewed with patient and/or family. Voiced understanding. Scripts Ondansetron (Ondansetron Odt) 4 Mg Tab.rapdis 4 MG PO Q6H PRN for NAUSEA/VOMITING, #12 TAB 0 Refills Prov: LINDSAY BOLIVAR 08/18/18 Omeprazole (Omeprazole) 40 Mg Capsule.dr 40 MG PO DAILY for 30 Days, #30 CAP 0 Refills Prov: LINDSAY BOLIVAR 08/18/18 Sucralfate (Carafate) 1 Gm Tablet 1 GM PO QIDACHS for 14 Days, #56 TAB 0 Refills Prov: LINDSAY BOLIVAR 08/18/18 Copy Copies To 1: PAULETTE ADAM DO LINDSAY BOLIVAR August 18, 2018 14:16
[2018-08-18 14:26] LABS: BASOPHILS % (AUTO) 1 % (0-10); EOSINOPHILS % (AUTO) 1 % (0-10); HEMATOCRIT 45 % (40-54); HEMOGLOBIN 15.9 G/DL (13.3-17.7); LYMPHOCYTES # (AUTO) 2.7 X 10^3 (1.0-4.0); LYMPHOCYTES % (AUTO) 47 % (12-44); MEAN CORPUSCULAR HEMOGLOBIN 34 PG (25-34); MEAN CORPUSCULAR HGB CONC 35 G/DL (32-36); MEAN CORPUSCULAR VOLUME 95 FL (80-99); MEAN PLATELET VOLUME 9.6 FL (7.4-10.4); MONOCYTES % (AUTO) 17 % (0-12); NEUTROPHILS # (AUTO) 1.9 X 10^3 (1.8-7.8); NEUTROPHILS % (AUTO) 35 % (42-75); PLATELET COUNT 164 10^3/uL (130-400); RED CELL DISTRIBUTION WIDTH 14.5 % (10.0-14.5); WHITE BLOOD COUNT 5.6 10^3/uL (4.3-11.0)
[2018-08-18 14:42] LABS: INR 0.9 (0.8-1.4); PROTHROMBIN TIME PATIENT 12.5 SEC (12.2-14.7)
[2018-08-18 14:50] LABS: ALANINE AMINOTRANSFERASE 300 U/L (0-55); ALBUMIN 4.1 GM/DL (3.2-4.5); ALKALINE PHOSPHATASE 92 U/L (40-136); AMYLASE 78 U/L (25-125); BILIRUBIN,TOTAL 0.6 MG/DL (0.1-1.0); BUN/CREATININE RATIO 12; CARBON DIOXIDE 22 MMOL/L (21-32); CHLORIDE 101 MMOL/L (98-107); CREATININE SERUM 0.78 MG/DL (0.60-1.30); GFR ESTIMATED > 60; GLUCOSE 109 MG/DL (70-105); LIPASE 27 U/L (8-78); POTASSIUM 3.9 MMOL/L (3.6-5.0); SODIUM 138 MMOL/L (135-145); TOTAL PROTEIN 8.3 GM/DL (6.4-8.2)
--- NOTE | 2018-08-18 14:54 | NUR ---
pt cant ua yet.
--- NOTE | 2018-08-18 15:01 | NUR ---
told me earlier he was going to d/c antibiotics for now.
[2018-08-18 15:29] LABS: BILIRUBIN,URINE NEGATIVE (NEGATIVE); CLARITY,URINE CLEAR; COLOR,URINE YELLOW; GLUCOSE, URINE (UA) NEGATIVE (NEGATIVE); KETONES,URINE NEGATIVE (NEGATIVE); LEUKOCYTE ESTERASE ,URINE NEGATIVE (NEGATIVE); NITRITE,URINE NEGATIVE (NEGATIVE); PH,URINE 7 (5-9); PROTEIN,URINE NEGATIVE (NEGATIVE); UROBILINOGEN,URINE NORMAL (NORMAL)
[2018-08-18] MEDS ORDERED: fentaNYL INJECTION 100 MCG/2 ML AMP IVP ONE (15:30)
[2018-08-18 15:31] VITALS: BP 139/89
--- NOTE | 2018-08-18 15:32 | NUR ---
pt remains here by self and alert gcs 15. abd pain continues rating 8 and comes and goes pt says. pt denies nausea and no v/d noted in er visit thus far. denies dyspnea and no acute sighns of dyspnea noted.
--- NOTE | 2018-08-18 15:35 | NUR ---
someone collected ua already
--- NOTE | 2018-08-18 15:38 | NUR ---
300 left in 2 liter bolus.
[2018-08-18 15:44] LABS: BACTERIA,URINE LARGE /HPF
--- NOTE | 2018-08-18 16:09 | NUR ---
2 liter bolus completed.
[2018-08-18] MEDS ORDERED: OMEP40CA36 PO (16:19)
[2018-08-18] MEDS ORDERED: ONDA4TAB11 PO (16:19)
[2018-08-18] MEDS ORDERED: SUCR1TAB36 PO (16:19)
--- NOTE | 2018-08-18 16:20 | Diagnostic Imaging Report ---
INDICATION: Abdominal pain. Gallbladder sonography performed in the routine fashion. The liver shows normal echogenicity with no focal lesions. Gallbladder shows no stones or wall thickening. Common duct measures 3 mm. Pancreas is partially obscured due to overlying gas. Right kidney is normal measuring 11.4 cm in length. There is no ascites. IMPRESSION: Unremarkable gallbladder sonography. Dictated by: Dictated on workstation # [id number]
[2018-08-18 16:54] VITALS: BP 139/89
== END 2018-08-18 16:54 | disposition home or self-care (01) ==
LOC: EDUNIT# 13:32 → ER 13:33
DX: K29.20 Alcoholic gastritis without bleeding (principal); F12.10 Cannabis abuse, uncomplicated; J43.9 Emphysema, unspecified; B19.20 Unspecified viral hepatitis C without hepatic coma; F10.20 Alcohol dependence, uncomplicated; F17.210 Nicotine dependence, cigarettes, uncomplicated; Z90.49 Acquired absence of other specified parts of digestive tract; Z80.8 Family history of malignant neoplasm of other organs or systems; Z80.1 Family history of malignant neoplasm of trachea, bronchus and lung; Z87.19 Personal history of other diseases of the digestive system; Z85.038 Personal history of other malignant neoplasm of large intestine; Z98.890 Other specified postprocedural states
CPT/HCPCS: 36415; 76705; 80053; 80320; 81000; 82150; 83605; 83690; 85025; 85610; 85730; 86308; 87040

== ENCOUNTER 2019-01-19 01:30 | Inpatient (IN) | payer SELFPAY ==
[~2019-01-19] VITALS: Ht 187.9 cm; Wt 80.0 kg
[~2019-01-19 01:30] MED LIST changes: +OMEP40CA36 PO; +ONDA4TAB11 PO; +SUCR1TAB36 PO
[2019-01-19] MEDS ORDERED: LACTATED RINGERS 1,000 ML IV ONE ×3 (02:02→03:09)
[2019-01-19 02:05] LABS: BASOPHILS # (AUTO) 0.1 10^3/uL (0.0-0.1); BASOPHILS % (AUTO) 1 % (0-10); EOSINOPHILS # (AUTO) 0.3 10^3/uL (0.0-0.3); EOSINOPHILS % (AUTO) 3 % (0-10); HEMATOCRIT 47 % (40-54); HEMOGLOBIN 16.4 G/DL (13.3-17.7); LYMPHOCYTES # (AUTO) 5.2 X 10^3 (1.0-4.0); LYMPHOCYTES % (AUTO) 62 % (12-44); MEAN CORPUSCULAR HEMOGLOBIN 34 PG (25-34); MEAN CORPUSCULAR HGB CONC 35 G/DL (32-36); MEAN CORPUSCULAR VOLUME 97 FL (80-99); MEAN PLATELET VOLUME 10.1 FL (7.4-10.4); MONOCYTES # (AUTO) 0.9 X 10^3 (0.0-1.0); MONOCYTES % (AUTO) 10 % (0-12); NEUTROPHILS % (AUTO) 24 % (42-75); PLATELET COUNT 170 10^3/uL (130-400); RED CELL DISTRIBUTION WIDTH 13.6 % (10.0-14.5); WHITE BLOOD COUNT 8.4 10^3/uL (4.3-11.0)
--- NOTE | 2019-01-19 02:11 | ED Psychosocial ---
General Stated Complaint: MENTAL HEALTH CONCERN Source: patient (PT IS VERY DIFFICULT HISTORIAN) Exam Limitations: intoxication History of Present Illness Date Seen by Provider: Jan 19, 2019 Time Seen by Provider: 01:45 Initial Comments PT ARRIVES VIA POV--BROTHER BRINGS HIM INTO ER STATES "I'M INTOXICATED" "I'M A BAD ALCOHOLIC" STATES "I DON'T FEEL LIKE SURVIVING THROUGH THIS" "I WANT TO PICK A FIGHT WITH SOMEONE" STATES HE HAS BEEN FEELING LIKE THIS "FOR A WEEK" STATES "I ZULMA THE LINE" ON DIRECT QUESTIONING IF HE WAS ACTUALLY WANTING TO KILL HIMSELF OR SOMEONE ELSE, HE REFUSES TO ANSWER. LATER STATES "I FUCKING WANT TO KILL MYSELF" "I DON'T WANT TO FUCKING LIVE" PT REFUSES TO ANSWER WHETHER HE HAS A PLAN OR NOT, OR IF HE HAS ACTUALLY DONE ANYTHING TO HARM HIMSELF. PT UNABLE TO STATE HOW MUCH HE DRINKS, BUT STATES HE DRINKS VODKA EVERY DAY--FIRST STATES HE DRINKS A QUART, THEN STATES THAT HE DRINKS "ALOT MORE THAN THAT" EVERY DAY, THEN STATES HE DRINKS "2 GALLONS"--THEN STATES "NOT 2 GALLONS A DAY", BUT CANNOT STATE HOW LONG IT TAKES HIM TO GO THROUGH 2 GALLONS. PT IS UNABLE TO STATE HOW MUCH HE HAS HAD TO DRINK TODAY. PT ADMITS TO DAILY MARIJUANA USE. DENIES OTHER DRUG USE PT LATER ADMITS TO IV METH AND COCAINE USE. STATES HE "GETS THE SHAKES" IF HE GOES TOO LONG WITHOUT ALCOHOL, BUT DENIES ANY HISTORY OF SEIZURES BROTHER STATES HE IS "NEVER NOT DRUNK" IN AT LEAST THE LAST 4 YEARS. BROTHER STATES THAT HE IS ALWAYS IS SAYING THINGS LIKE HE WANTS TO KILL HIMSELF OR SOMEBODY--BUT IS NOT DIRECTED AT ANYONE IN PARTICULAR, AND HAS NEVER VOICED A PLAN. BROTHER REPORTS THAT ITA, THE PT WALKED TO HIS HOUSE IN THE RAIN AND ASKED HIM TO BRING HIM TO THE HOSPITAL TO GET HELP--WHICH IS SOMETHING THAT HE HAS NEVER DONE BEFORE. PT LIVES BY HIMSELF. STATES HE WORKS AT [employer]. STATES HE DOES NOT DRINK AT WORK, AND DOES NOT GET THE SHAKES AT WORK PT STATES HE AND HIS GIRLFRIEND BROKE UP IN THE LAST COUPLE OF MONTHS, BUT STATES HE HAS TALKED TO HER THE LAST FEW WEEKENDS, BUT NOT THIS WEEKEND. INFERS THAT THIS MAY BE WHY HE HAS BEEN FEELING THIS WAY, AND HAS DRANK MORE THIS WEEKEND. PCP: KARIE, USED TO SEE Liz BOYD. BUT HAS NOT BEEN THERE IN A LONG TIME. Allergies and Home Medications Allergies Coded Allergies: No Known Drug Allergies (Unverified , 08/18/18) Home Medications Ibuprofen 600 Mg Tablet, 600 MG PO Q8HR PRN for TEMPERATURE Prescribed by: KALYAN ALEMAN on 05/21/18 1457 Omeprazole 40 Mg Capsule.dr, 40 MG PO DAILY Prescribed by: LINDASY BOLIVAR on 08/18/18 1619 Ondansetron 4 Mg Tab.rapdis, 4 MG PO Q6H PRN for NAUSEA/VOMITING Prescribed by: LINDSAY BOLIVAR on 08/18/18 161 Sucralfate 1 Gm Tablet, 1 GM PO QIDACHS Prescribed by: LINDSAY BOLIVAR on 08/18/18 1619 Patient Home Medication List Home Medication List Reviewed: Yes Review of Systems Constitutional: no symptoms reported Respiratory: no symptoms reported Cardiovascular: no symptoms reported Gastrointestinal: no symptoms reported Genitourinary: no symptoms reported Musculoskeletal: no symptoms reported Skin: no symptoms reported Psychiatric/Neurological: See HPI Past Wceuhue-Edmxdt-Bwkbgm Hx Patient Social History Alcohol Use: Regular Use (VERY HEAVY, DAILY USE, OF VODKA--UNABLE TO STATE HOW MUCH HE DRINKS A DAY) Alcohol Beverage of Choice: Vodka Recreational Drug Use: Yes (THC, + IV METH, COCAINE USE) Drug of Choice: MARIJUANA, + IV METH, COCAINE USE Smoking Status: Current Everyday Smoker (1 PPD) Type Used: Cigarettes (1 PPD) 2nd Hand Smoke Exposure: Yes Recent Foreign Travel: No Contact w/Someone Who Travel: No Recent Hopitalizations: No Immunizations Up To Date Tetanus Booster (TDap): Less than 5yrs Date of Influenza Vaccine: Apr 18, 2018 Seasonal Allergies Seasonal Allergies: No Past Medical History Surgeries: Yes (WISDOM TEETH; LEFT INGUINAL HERNIA REPAIR; LEFT FINGER SURGERY; COLONOSCOPIES--LAST ONE 12/2017; COLON RESECTION 2016) Abdominal, Bowel Surgery, Orthopedic Respiratory: Yes Asthma, Emphysema Cardiac: No Neurological: No Reproductive Disorders: No Sexually Transmitted Disease: No HIV/AIDS: No Genitourinary: No Gastrointestinal: Yes (HX PANCREATITIS; ALCOHOLIC GASTRITIS; HEPATITIS C--NO TREATMENT; 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) Pancreatitis, Chronic Diarrhea, Hepatitis Musculoskeletal: Yes Degenerate Disk Disease, Chronic Back Pain Endocrine: No HEENT: No Loss of Vision: Bilateral Hearing Impairment: Denies Cancer: Yes (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 3.0oz. [id number]; 24.4 BMI Method:Stated General Appearance: WD/WN, no apparent distress, other (REEKS OF ALCOHOL AND CIGARETTES; PT IS BELLIGERENT, CURSING, SOMEWHAT UNCOOPERATIVE. VERY HOSTILE AT TIMES/EMOTIONALLY LABILE. SPEECH SOMEWHAT SLURRED AND SPEECH PATTERN IS MUMBLED AT TIMES. 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, no motor/sensory deficits, alert, oriented x 3 Appearance/Memory: disheveled Behavior/Eye Contact: increased rate of speech, belligerent, uncooperative Thoughts/Hallucinations: no apparent hallucination Skin: normal color, warm/dry (+), tattoos/piercings Progress/Results/Core Measures Results/Orders Lab Results Laboratory Tests Test 01/19/19 01:55 01/19/19 04:32 Range/Units White Blood Count 8.4 4.3-11.0 10^3/uL Red Blood Count 4.81 4.35-5.85 10^6/uL Hemoglobin 16.4 13.3-17.7 G/DL Hematocrit 47 40-54 % Mean Corpuscular Volume 97 80-99 FL Mean Corpuscular Hemoglobin 34 25-34 PG Mean Corpuscular Hemoglobin Concent 35 32-36 G/DL Red Cell Distribution Width 13.6 10.0-14.5 % Platelet Count 170 130-400 10^3/uL Mean Platelet Volume 10.1 7.4-10.4 FL Neutrophils (%) (Auto) 24 L 42-75 % Lymphocytes (%) (Auto) 62 H 12-44 % Monocytes (%) (Auto) 10 0-12 % Eosinophils (%) (Auto) 3 0-10 % Basophils (%) (Auto) 1 0-10 % Neutrophils # (Auto) 2.0 1.8-7.8 X 10^3 Lymphocytes # (Auto) 5.2 H 1.0-4.0 X 10^3 Monocytes # (Auto) 0.9 0.0-1.0 X 10^3 Eosinophils # (Auto) 0.3 0.0-0.3 10^3/uL Basophils # (Auto) 0.1 0.0-0.1 10^3/uL Prothrombin Time 12.5 12.2-14.7 SEC INR Comment 0.9 0.8-1.4 Activated Partial Thromboplast Time 31 24-35 SEC Sodium Level 142 135-145 MMOL/L Potassium Level 3.8 3.6-5.0 MMOL/L Chloride Level 103 98-107 MMOL/L Carbon Dioxide Level 24 21-32 MMOL/L Anion Gap 15 H 5-14 MMOL/L Blood Urea Nitrogen 9 7-18 MG/DL Creatinine 0.87 0.60-1.30 MG/DL Estimat Glomerular Filtration Rate > 60 BUN/Creatinine Ratio 10 Glucose Level 128 H 70-105 MG/DL Calcium Level 9.2 8.5-10.1 MG/DL Corrected Calcium 8.9 8.5-10.1 MG/DL Magnesium Level 1.7 1.6-2.4 MG/DL Total Bilirubin 0.4 0.1-1.0 MG/DL Aspartate Amino Transf (AST/SGOT) 110 H 5-34 U/L Alanine Aminotransferase (ALT/SGPT) 84 H 0-55 U/L Alkaline Phosphatase 90 40-136 U/L Total Protein 8.7 H 6.4-8.2 GM/DL Albumin 4.4 3.2-4.5 GM/DL Amylase Level 80 25-125 U/L Lipase 31 8-78 U/L TSH [place] Testing 1.28 0.35-4.94 UIU/ML Salicylates Level < 5.0 L 5.0-20.0 MG/DL Acetaminophen Level < 10 L 10-30 UG/ML Serum Alcohol 336 *H <10 MG/DL Urine Color YELLOW Urine Clarity CLEAR Urine pH 6 5-9 Urine Specific [place] 1.015 L 1.016-1.022 Urine Protein 1+ H NEGATIVE Urine Glucose (UA) NEGATIVE NEGATIVE Urine Ketones NEGATIVE NEGATIVE Urine Nitrite NEGATIVE NEGATIVE Urine Bilirubin NEGATIVE NEGATIVE Urine Urobilinogen NORMAL NORMAL MG/DL Urine Leukocyte Esterase NEGATIVE NEGATIVE Urine RBC (Auto) NEGATIVE NEGATIVE Urine RBC NONE /HPF Urine WBC NONE /HPF Urine Squamous Epithelial Cells 2-5 /HPF Urine Crystals NONE /LPF Urine Bacteria NEGATIVE /HPF Urine Casts NONE /LPF Urine Mucus LARGE H /LPF Urine Culture Indicated NO Urine Opiates Screen NEGATIVE NEGATIVE Urine Oxycodone Screen NEGATIVE NEGATIVE Urine Methadone Screen NEGATIVE NEGATIVE Urine Propoxyphene Screen NEGATIVE NEGATIVE Urine Barbiturates Screen NEGATIVE NEGATIVE Ur Tricyclic Antidepressants Screen NEGATIVE NEGATIVE Urine Phencyclidine Screen NEGATIVE NEGATIVE Urine Amphetamines Screen NEGATIVE NEGATIVE Urine Methamphetamines Screen NEGATIVE NEGATIVE Urine Benzodiazepines Screen NEGATIVE NEGATIVE Urine Cocaine Screen NEGATIVE NEGATIVE Urine Cannabinoids Screen POSITIVE H NEGATIVE My Orders Orders - FREIDA PETER DO Urinalysis (01/19/19 01:46) Thyroid Analyzer (01/19/19 01:46) Drug Screen Stat (Urine) (01/19/19 01:46) Cbc With Automated Diff (01/19/19 01:46) Comprehensive Metabolic Panel (01/19/19 01:46) Alcohol (01/19/19 01:46) Acetaminophen (01/19/19 01:46) Salicylate (01/19/19 01:46) Ekg Tracing (01/19/19 01:46) Ed Iv/Invasive Line Start (01/19/19 02:02) Ed Iv/Invasive Line Start (01/19/19 02:02) Lactated Ringers (Lr 1000 Ml Iv Solution (01/19/19 02:02) Amylase (01/19/19 02:02) Lipase (01/19/19 02:02) Magnesium (01/19/19 02:02) Protime With Inr (01/19/19 02:02) Partial Thromboplastin Time (01/19/19 02:02) Ed Iv/Invasive Line Start (01/19/19 03:09) Lactated Ringers (Lr 1000 Ml Iv Solution (01/19/19 03:09) Ed Iv/Invasive Line Start (01/19/19 03:09) Lactated Ringers (Lr 1000 Ml Iv Solution (01/19/19 03:09) Medications Given in ED Current Medications Medications Dose Ordered Sig/[place] Route Start Time Stop Time Status Last Admin Dose Admin Lactated Ringer's 1,000 ml @ 0 mls/hr Q0M ONCE IV 01/19/19 02:02 01/19/19 02:04 DC 01/19/19 02:13 1,000 MLS/HR Lactated Ringer's 1,000 ml @ 0 mls/hr Q0M ONCE IV 01/19/19 03:09 01/19/19 03:11 DC 01/19/19 03:17 1,000 MLS/HR Lactated Ringer's 1,000 ml @ 0 mls/hr Q0M ONCE IV 01/19/19 03:09 01/19/19 03:11 DC 01/19/19 03:17 1,000 MLS/HR Vital Signs/I&O 01/19/19 01:40 Temp 36.7 Pulse 113 Resp 20 B/P (MAP) 156/97 (116) Pulse Ox 96 Progress Progress Note : Progress Note NO DETERIORATION IN PT'S CONDITION DURING ER STAY PT REMAINED CALM AND COOPERATIVE FOR REMAINDER OF ER STAY, AND RESTED QUIETLY FOR ENTIRE REMAINDER OF ER STAY Initial ECG Impression Date: Jan 19, 2019 Initial ECG Impression Time: 01:49 Initial ECG Rate: 102 Initial ECG Rhythm: Normal Sinus Departure Communication (Admissions) [id number]--SPOKE WITH DR. DSOUZA, HOSPITALIST DECK STEWARD FOR [facility] ACCEPTS PT FOR ADMIT Impression Primary Impression: Alcohol intoxication in active alcoholic Additional Impressions: Suicidal ideations Illicit drug use HX OF HEPATITIS C--UNTREATED Disposition: ADMITTED INPATIENT Condition: Stable Admissions Decision to Admit Reason: Admit from ER (General) Decision to Admit/Date: Jan 19, 2019 Time/Decision to Admit Time: 03:33 Departure-Patient Inst. Referrals: [facility] (PCP/Family) Primary Care Physician FREIDA PETER DO Jan 19, 2019 02:10
[2019-01-19 02:16] LABS: INR 0.9 (0.8-1.4); PROTHROMBIN TIME PATIENT 12.5 SEC (12.2-14.7)
[2019-01-19 02:26] LABS: ALANINE AMINOTRANSFERASE 84 U/L (0-55); ALBUMIN 4.4 GM/DL (3.2-4.5); ALKALINE PHOSPHATASE 90 U/L (40-136); BILIRUBIN,TOTAL 0.4 MG/DL (0.1-1.0); BUN/CREATININE RATIO 10; CALCIUM 9.2 MG/DL (8.5-10.1); CARBON DIOXIDE 24 MMOL/L (21-32); CHLORIDE 103 MMOL/L (98-107); CREATININE SERUM 0.87 MG/DL (0.60-1.30); GFR ESTIMATED > 60; GLUCOSE 128 MG/DL (70-105); POTASSIUM 3.8 MMOL/L (3.6-5.0); SALICYLATE < 5.0 MG/DL (5.0-20.0); SODIUM 142 MMOL/L (135-145); TOTAL PROTEIN 8.7 GM/DL (6.4-8.2)
[2019-01-19 02:27] LABS: MAGNESIUM 1.7 MG/DL (1.6-2.4)
[2019-01-19 02:28] LABS: ACETAMINOPHEN < 10 UG/ML (10-30)
[2019-01-19 02:47] LABS: TSH (THYROID ANALYZER) 1.28 UIU/ML (0.35-4.94)
[2019-01-19 04:41] LABS: BILIRUBIN,URINE NEGATIVE (NEGATIVE); CLARITY,URINE CLEAR; COLOR,URINE YELLOW; GLUCOSE, URINE (UA) NEGATIVE (NEGATIVE); KETONES,URINE NEGATIVE (NEGATIVE); LEUKOCYTE ESTERASE ,URINE NEGATIVE (NEGATIVE); NITRITE,URINE NEGATIVE (NEGATIVE); PH,URINE 6 (5-9); PROTEIN,URINE 1+ (NEGATIVE)
[2019-01-19 04:47] LABS: BACTERIA,URINE NEGATIVE /HPF
[2019-01-19 04:53] LABS: AMPHETAMINE SCREEN, URINE NEGATIVE (NEGATIVE); BARBITURATE SCREEN URINE NEGATIVE (NEGATIVE); BENZODIAZEPINES SCREEN URINE NEGATIVE (NEGATIVE); CANNABINOID SCREEN, URINE POSITIVE (NEGATIVE); COCAINE SCREEN URINE NEGATIVE (NEGATIVE); METHADONE STAT NEGATIVE (NEGATIVE); METHAMPHETAMINE SCREEN URINE S NEGATIVE (NEGATIVE); OPIATE SCREEN URINE NEGATIVE (NEGATIVE); OXYCODONE STAT NEGATIVE (NEGATIVE); PROPOXYPHENE STAT NEGATIVE (NEGATIVE); TRICYCLIC ANTIDEPRESSANTS SCRE NEGATIVE (NEGATIVE)
[2019-01-19 05:56] VITALS: BP 133/111
[2019-01-19 06:00] VITALS: BP 141/98
[2019-01-19 06:30] VITALS: BP 144/92
[2019-01-19] MEDS ORDERED: 1/2 NS IV SOLUTION 1,000 ML IV PRN (06:53)
[2019-01-19 07:00] VITALS: BP 153/104
[2019-01-19] MEDS ORDERED: CATHETER FLUSH 10 ML SYR IV PRN (07:00)
[2019-01-19] MEDS ORDERED: LORazepam 1 MG (ATIVAN) TAB PO PRN (07:00)
[2019-01-19] MEDS ORDERED: D5 1/2 NS 1000 ML IV SOLUTION 1,000 ML IV PRN (07:00)
[2019-01-19] MEDS ORDERED: ANTACID SUSP 30 ML UDC (MYLANTA) PO PRN (07:00)
[2019-01-19] MEDS ORDERED: LORazepam INJ 2 MG/ML (ATIVAN) VIAL IV PRN (07:00)
[2019-01-19] MEDS ORDERED: THIAMINE INJECTION 100 MG, FOLIC ACID INJECTION 1 MG, MAGNESIUM SULFATE 2 GM, VITAMIN M... IV SCH ×5 (07:00)
[2019-01-19] MEDS ORDERED: SENNA W/DOCUSATE (SENOKOT S) TABLET PO PRN (07:00)
[2019-01-19] MEDS ORDERED: ONDANSETRON 4 MG/2 ML (SDV) Z0FRAN IV PRN ×2 (07:00)
[2019-01-19] MEDS ORDERED: ONDANSETRON 4 MG (ZOFRAN) ORAL DISSOLVE TAB SL PRN (07:00)
[2019-01-19] MEDS ORDERED: LORazepam INJ 2 MG/ML (ATIVAN) VIAL IM/IV PRN (07:00)
[2019-01-19] MEDS ORDERED: FLU QUADRIvalent (5+ YOA) 2019-2020 (AFLURIA) 0.5 ML IM ONE (08:00)
[2019-01-19] MEDS ORDERED: PANTOPRAZOLE 40 MG (PROTONIX) VIAL IV SCH (09:00)
[2019-01-19] MEDS: D5 1/2 NS W/KCL 20 MEQ/L 1,000 ML IV SCH ×2 (09:16→13:54)
[2019-01-19 09:25] VITALS: BP 140/98
--- NOTE | 2019-01-19 09:45 | NUR ---
[facility] staff called at this time for pt evaluation prior to dismissal. Will await phone call at this time from certified evaluation staff.
--- NOTE | 2019-01-19 10:31 | Short Stay Summary-Hospitalist ---
ELLA MIN MED STUDENT 01/19/19 1030: History of Present Illness HPI/Chief Complaint CC: Alcohol abuse, suicidal ideation * Mr. Rizvi was brought to the ER last night by his brother due to suicidal ideation. He has a history of alcoholism, meth use, colon cancer, acute pancreatitis, and hypertension. His brother reported he has voiced suicidal intentions before but never a plan. Brother reports that last night he walked to his house in the rain and asked to bring him to the hospital for help, which he has never done before. * In the ICU today patient reports he had been having suicidal ideation, but did not want to go into detail. His only complaints were of stress and anxiety that kept him from sleeping, and of diarrhea. He reported having nausea when seen by Dr. Gastelum later. * Interested in seeing a psychologist/psychiatrist, also asked to speak to his daughter. * Denied having asthma, does not take inhalers. Wheezing heard on lung auscultation. * Chemistry show AST 110, ALT 84, anion gap 15, glucose 128, total protein 8.7 * Urinalysis shows specific gravity of 1.015, 1+ protein, large amounts of mucus. * Toxicology screen positive for cannabinoids, serum alcohol 336 on admission. Source: patient Date Seen 01/19/19 Time Seen by a Provider: 08:00 Attending Physician Carmita Hester MD [facility] Referring Physician Date of Admission Jan 19, 2019 at 03:35 Home Medications & Allergies Home Medications Reviewed patient Home Medication Reconciliation performed by pharmacy medication reconciliations monogram technician and/or nursing. Patients Allergies have been reviewed. Allergies Allergies Coded Allergies No Known Drug Allergies (Unverified08/18/18) Past Zsjftzk-Vdreea-Lifssg Hx Patient Social History Alcohol Use: Regular Use (VERY HEAVY, DAILY USE, OF VODKA--UNABLE TO STATE HOW MUCH HE DRINKS A DAY) Number of Drinks Today: 20 Alcohol Beverage of Choice: Vodka, Other Recreational Drug Use: Yes (THC, + IV METH, COCAINE USE) Drug of Choice: MARIJUANA, + IV METH, COCAINE USE Smoking Status: Current Everyday Smoker (1 PPD) Type Used: Cigarettes (1 PPD) 2nd Hand Smoke Exposure: Yes Recent Foreign Travel: No Contact w/other who traveled: No Recent Hopitalizations: No Recent Infectious Disease Expo: No Immunizations Up To Date Tetanus Booster (TDap): Less than 5yrs Date of Influenza Vaccine: Apr 18, 2018 Seasonal Allergies Seasonal Allergies: No Past Medical History Surgeries: Abdominal, Bowel Surgery, Orthopedic Respiratory: COPD Reproductive: No Sexually Transmitted Disease: No HIV/AIDS: No Gastrointestinal: Pancreatitis, Chronic Diarrhea, Hepatitis Musculoskeletal: Degenerate Disk Disease, Chronic Back Pain Loss of Vision: Bilateral Hearing Impairment: Denies Cancer: Colon Did You Recieve Any Treatments: Yes What Type of Treatment Did You: Surgical Intervention History of Blood Disorders: No Adverse Reaction to Blood [place]: No Family History BRAIN CANCER G8 SISTER CROHN'S DISEASE G8 BROTHER LUNG CANCER 19 FATHER SEIZURE DISORDER G8 BROTHER Review of Systems Constitutional: No chills, No fever EENTM: nose congestion Respiratory: cough; No short of breath Cardiovascular: No chest pain, No edema Gastrointestinal: No abdominal pain, No constipation; diarrhea, nausea; No vomiting Genitourinary: No dysuria, No hematuria Psychiatric/Neurological: Anxiety, Depressed (suicidal ideation); Denies Headache, Denies Numbness, Denies Paresthesia, Denies Tingling Physical Exam Physical Exam Vital Signs Vital Signs - First Documented 01/19/19 01/19/19 01:40 05:56 Temp 36.7 Pulse 113 Resp 20 B/P (MAP) 156/97 (116) Pulse Ox 96 O2 Delivery Room Air Capillary Refill : Less Than 3 Seconds Height, Weight, BMI Height: 6'3.00" Weight: 185lbs. 3.0oz. 83.778930vi; 22.65 BMI Method:Stated General Appearance: WD/WN, Anxious Respiratory: No Accessory Muscle Use, No Respiratory Distress, Expiration, Inspiration, Wheezing Cardiovascular: Regular Rate, Rhythm, No Edema, No Gallop, No Murmur, Normal Peripheral Pulses Extremity: No Calf Tenderness, No Pedal Edema Neurologic/Psychiatric: Alert, Oriented x3; No Normal Mood/Affect; Depressed Affect Results Results/Procedures Labs Laboratory Tests 01/19/19 01:55 Patient resulted labs reviewed. Short Stay Diagnosis Discharge Diagnosis-Short Stay Admission Diagnosis Suicidal ideation, intoxication Final Discharge Diagnosis Suicidal ideation, alcohol withdrawal Conclusion Plan Appointment with [facility] today Continue alcohol withdrawal management Clinical Quality Measures DVT/VTE Risk/Contraindication: Risk Factor Score Per Nursin RFS Level Per Nursing on Admit: 2=Moderate CASSIA GASTELUM DO 01/19/192051: History of Present Illness HPI/Chief Complaint CC: Alcohol intoxication with suicidal ideation HPI: This is a 53yoWM who presented to the ER with complaints of suicidal thoughts he was found to be intoxicated in need of admission to the ICU for close monitoring since he appeared to be at risk for self harming. I did secure an appointment with a mental health professional at the clinic Dr. Oleary at 3pm today he will have a safeline evaluation to ensure he is okay for DC because he does appear to be depressed but denies any suicidal ideation to me or the nurse. Source: patient Exam Limitations: no limitations Past Fuotcrh-Naravh-Bxqwvs Hx Past Med/Social Hx: Reviewed Nursing Past Med/Soc Hx, Reviewed and Corrections made Family History BRAIN CANCER G8 SISTER CROHN'S DISEASE G8 BROTHER LUNG CANCER 19 FATHER SEIZURE DISORDER G8 BROTHER Review of Systems Constitutional: see HPI Physical Exam Physical Exam General Appearance: No Apparent Distress, WD/WN, Anxious, Chronically ill Respiratory: Lungs Clear Cardiovascular: Regular Rate, Rhythm Neurologic/Psychiatric: Alert, Oriented x3, No Motor/Sensory Deficits, Depressed Affect Short Stay Diagnosis Discharge Diagnosis-Short Stay Admission Diagnosis ETOH intoxication Final Discharge Diagnosis ETOH intoxication Conclusion Plan DC home Diagnosis/Problems Diagnosis/Problems (1) Alcohol dependence Status: Acute (2) Elevated LFTs Status: Chronic (3) HTN (hypertension) Status: Acute (4) Alcoholism Status: Acute Supervisory-Addendum Brief Verification & Attestation Participated in pt care: history, MDM, physical Personally performed: exam, history, MDM, supervision of care Care discussed with: Medical Student Procedures: n/a Results interpretation: Verified all documentation Verification and Attestation of Medical Student E/M Service A medical student performed and documented this service in my presence. I reviewed and verified all information documented by the medical student and made modifications to such information, when appropriate. I personally performed the physical exam and medical decision making. Cassia Gastelum, Jan 19, 2019,20:52 ELLA MIN MED STUDENT Jan 19, 2019 10:30 CASSIA GASTELUM DO Jan 19, 2019 20:52
--- NOTE | 2019-01-19 10:36 | NUR ---
PATIENT STATES HE DOES NOT TAKE ANY MEDICATIONS, PRESCRIPTION OR OTC. HE STATES IF HE DID NEED TO GET A PRESCRIPTION FILLED HE WOULD USE [facility].
--- NOTE | 2019-01-19 11:14 | NUR ---
CM/SS spoke with RNing and patient is now being evaluated by [facility] to ensure safe for discharge. If able to discharge has an emergency MH appointment with [facility] for this day.
--- NOTE | 2019-01-19 12:30 | NUR ---
Pt given discharge instructions at this time. Pt verbalized understanding at this time and currently does not have transportation to go home at this time. Pt's daughter contacted at this time, Zahraa. Daughter verbalizes understanding of discharge also during this time however is unable to leave work. Pt refuses follow up appt with [facility] at this time scheduled for 3pm today. Daughter made aware. Will await transportation for pt at this time.
--- NOTE | 2019-01-19 16:20 | NUR ---
IV removed at this time. Pt's daughter arrived at bedside to take pt home via private vehicle at this time. Personal belongings and discharge papers with pt at time of discharge.
== END 2019-01-19 16:20 | disposition home or self-care (01) | DRG 897 ==
LOC: EDUNIT# 01:30 → ER 01:31 → ICU 03:35
PROVIDERS: ADMIT Internal Medicine; ATTEND Internal Medicine
DX: F10.229 Alcohol dependence with intoxication, unspecified (principal); Y90.8 Blood alcohol level of 240 mg/100 ml or more; R45.851 Suicidal ideations; F41.9 Anxiety disorder, unspecified; F32.9 Major depressive disorder, single episode, unspecified; F12.90 Cannabis use, unspecified, uncomplicated; F15.90 Other stimulant use, unspecified, uncomplicated; F14.90 Cocaine use, unspecified, uncomplicated; J43.9 Emphysema, unspecified; F17.210 Nicotine dependence, cigarettes, uncomplicated; B19.20 Unspecified viral hepatitis C without hepatic coma; I10 Essential (primary) hypertension; Z85.038 Personal history of other malignant neoplasm of large intestine
CPT/HCPCS: 36415; 80053; 80306; 80320; 80329; 81000; 82150; 83690; 83735; 84443; 85025; 85610; 85730; 86703; 93005; 96360; 96361